=== PATIENT | male | born 1955 ===

== ENCOUNTER 2020-08-25 10:15 | Inpatient (IN) | payer OTHER, SELFPAY ==
[2020-08-25] MEDS ORDERED: SODIUM CHLORIDE 0.9% 500 ML 500 ML IV ONE (10:36)
--- NOTE | 2020-08-25 10:43 | Emergency Department Report ---
ED Shortness of Breath HPI - General Chief Complaint: Dyspnea/Respdistress Stated Complaint: QI Source: patient, EMS Mode of arrival: Stretcher Limitations: No Limitations - History of Present Illness Initial Comments: Patient is a 64-year-old male who is presenting with shortness of breath. Patient states he has had increased work of breathing for the last 5 days. Denies productive cough. States he has been no fever body aches. Patient is called paramedics because of shortness of breath today. Paramedics state the patient was wheezing on their arrival and his O2 sats were 90% on room air. He received neb treatment was started on BiPAP given 2 g of magnesium prior to his arrival. Patient is denying any nausea vomiting diarrhea at this time. - Related Data Allergies Allergy/AdvReac Type Severity Reaction Status Date / Time No Known Allergies Allergy Unverified 08/25/20 10:28 ED Review of Systems ROS: Stated complaint: QI Other details as noted in HPI Comment: All other systems reviewed and negative ED Past Medical Hx - Past Medical History Previous Medical History?: Yes Hx Hypertension: Yes Hx Asthma: Yes Additional medical history: HLD - Surgical History Past Surgical History?: No - Social History Smoking Status: Never Smoker Substance Use Type: None ED Physical Exam - General Limitations: No Limitations General appearance: alert, in no apparent distress - Head Head exam: Present: atraumatic, normocephalic - Eye Eye exam: Present: normal appearance - ENT ENT exam: Present: mucous membranes moist - Neck Neck exam: Present: normal inspection - Respiratory Respiratory exam: Present: respiratory distress (Tachypnea), rhonchi. Absent: normal lung sounds bilaterally, wheezes, rales, stridor - Cardiovascular Cardiovascular Exam: Present: regular rate, normal rhythm, normal heart sounds. Absent: systolic murmur, diastolic murmur, rubs, gallop - GI/Abdominal GI/Abdominal exam: Present: soft, normal bowel sounds. Absent: distended, tenderness, guarding, rebound - Rectal Rectal exam: Present: deferred - Extremities Exam Extremities exam: Present: normal inspection - Back Exam Back exam: Present: normal inspection - Neurological Exam Neurological exam: Present: alert, oriented X3 - Psychiatric Psychiatric exam: Present: normal affect, normal mood - Skin Skin exam: Present: warm, dry, intact, normal color. Absent: rash ED Course Vital Signs 08/25/20 10:31 Temperature 97.6 F Pulse Rate 101 H Respiratory 22 Rate Blood Pressure 138/109 [Left] O2 Sat by Pulse 100 Oximetry ED Medical Decision Making - Lab Data Result diagrams: 08/25/20 10:51 08/25/20 10:51 Lab Results 08/25/20 08/25/20 08/25/20 Range/Units 10:51 10:51 10:51 WBC 9.3 (4.5-11.0) K/mm3 RBC 4.01 (3.65-5.03) M/mm3 Hgb 11.3 L (11.8-15.2) gm/dl Hct 34.2 L (35.5-45.6) % MCV 85 (84-94) fl MCH 28 (28-32) pg MCHC 33 (32-34) % RDW 16.8 H (13.2-15.2) % Plt Count 270 (140-440) K/mm3 Lymph % (Auto) 10.9 L (13.4-35.0) % [place] % (Auto) 6.9 (0.0-7.3) % Eos % (Auto) 1.9 (0.0-4.3) % Baso % (Auto) 0.6 (0.0-1.8) % Lymph # (Auto) 1.0 L (1.2-5.4) K/mm3 [place] # (Auto) 0.6 (0.0-0.8) K/mm3 Eos # (Auto) 0.2 (0.0-0.4) K/mm3 Baso # (Auto) 0.1 (0.0-0.1) K/mm3 Seg Neutrophils % 79.7 H (40.0-70.0) % Seg Neutrophils # 7.4 (1.8-7.7) K/mm3 D-Dimer 845.09 H (0-234) ng/mlDDU Sodium 135 L (137-145) mmol/L Potassium 4.4 (3.6-5.0) mmol/L Chloride 99.8 (98-107) mmol/L Carbon Dioxide 29 (22-30) mmol/L Anion Gap 11 mmol/L BUN 23 H (9-20) mg/dL Creatinine 0.6 L (0.8-1.3) mg/dL Estimated GFR > 60 ml/min BUN/Creatinine Ratio 38 % Glucose 126 H (75-100) mg/dL Lactic Acid (0.7-2.0) mmol/L Calcium 8.5 (8.4-10.2) mg/dL Ferritin (30.0-300.0) ng/mL Total Bilirubin 0.40 (0.1-1.2) mg/dL AST 41 H (5-40) units/L ALT 30 (7-56) units/L Alkaline Phosphatase 124 (35-129) units/L Lactate Dehydrogenase 238 H (91-180) units/L C-Reactive Protein 3.40 H (0.00-1.30) mg/dL Total Protein 6.9 (6.3-8.2) g/dL Albumin 3.1 L (3.9-5) g/dL Albumin/Globulin Ratio 0.8 % 08/25/20 08/25/20 Range/Units 10:51 10:51 WBC (4.5-11.0) K/mm3 RBC (3.65-5.03) M/mm3 Hgb (11.8-15.2) gm/dl Hct (35.5-45.6) % MCV (84-94) fl MCH (28-32) pg MCHC (32-34) % RDW (13.2-15.2) % Plt Count (140-440) K/mm3 Lymph % (Auto) (13.4-35.0) % [place] % (Auto) (0.0-7.3) % Eos % (Auto) (0.0-4.3) % Baso % (Auto) (0.0-1.8) % Lymph # (Auto) (1.2-5.4) K/mm3 [place] # (Auto) (0.0-0.8) K/mm3 Eos # (Auto) (0.0-0.4) K/mm3 Baso # (Auto) (0.0-0.1) K/mm3 Seg Neutrophils % (40.0-70.0) % Seg Neutrophils # (1.8-7.7) K/mm3 D-Dimer (0-234) ng/mlDDU Sodium (137-145) mmol/L Potassium (3.6-5.0) mmol/L Chloride (98-107) mmol/L Carbon Dioxide (22-30) mmol/L Anion Gap mmol/L BUN (9-20) mg/dL Creatinine (0.8-1.3) mg/dL Estimated GFR ml/min BUN/Creatinine Ratio % Glucose (75-100) mg/dL Lactic Acid 0.80 (0.7-2.0) mmol/L Calcium (8.4-10.2) mg/dL Ferritin 101.3 (30.0-300.0) ng/mL Total Bilirubin (0.1-1.2) mg/dL AST (5-40) units/L ALT (7-56) units/L Alkaline Phosphatase (35-129) units/L Lactate Dehydrogenase (91-180) units/L C-Reactive Protein (0.00-1.30) mg/dL Total Protein (6.3-8.2) g/dL Albumin (3.9-5) g/dL Albumin/Globulin Ratio % - Radiology Data [facility] [address] [place] [address] XRay Report Signed Patient: AMISH PACHECO MR#: [id number] 1 : 1955 Acct:[id number] Age/Sex: 64 / M ADM Date: 08/25/20 Loc: ED Attending Dr: Ordering Physician: REBECA WILSON MD Date of Service: 08/25/20 Procedure(s): XR chest 1V ap Accession Number(s): [id number] cc: REBECA WILSON MD Fluoro Time In Minutes: CHEST 1 VIEW INDICATION / CLINICAL INFORMATION: resp distress. COMPARISON: None available. FINDINGS: SUPPORT DEVICES: None. HEART / MEDIASTINUM: Unremarkable allowing for AP technique. LUNGS / PLEURA: There is suggestion of pulmonary vascular congestion and small bilateral layering effusions with adjacent subsegmental atelectasis. No pneumothorax. ADDITIONAL FINDINGS: No significant additional findings. IMPRESSION: 1. Pulmonary vascular congestion and small bilateral layering effusions with bibasilar subsegmental atelectasis. Signer Name: Luz Maria Camara MD Signed: 08/25/2020 11:32 AM Workstation Name: [id number] - Medical Decision Making Patient arrived on BiPAP however he is much improved after neb treatment. Patient is on a 50% Ventimask. Patient be admitted for further management of his large pneumonia. COVID-19 testing will be done as well. Critical Care Time: Yes (30) Critical care attestation.: If time is entered above; I have spent that time in minutes in the direct care of this critically ill patient, excluding procedure time. ED Disposition Clinical Impression: Pneumonia, Hypoxia, Suspected COVID-19 virus infection Disposition: DC-01 TO HOME OR SELFCARE Is pt being admited?: Yes Does the pt Need Aspirin: No Condition: Stable Instructions: Bacterial Pneumonia (ED) Time of Disposition: 12:19
[2020-08-25 11:24] LABS: Basophils # (Auto) 0.1 K/mm3 (0.0-0.1); Basophils % (Auto) 0.6 % (0.0-1.8); Eosinophils # (Auto) 0.2 K/mm3 (0.0-0.4); Eosinophils % (Auto) 1.9 % (0.0-4.3); Hematocrit 34.2 % (35.5-45.6); Hemoglobin 11.3 gm/dl (11.8-15.2); Lymphocytes % (Auto) 10.9 % (13.4-35.0); Mean Corpuscular HGB Conc 33 % (32-34); Mean Corpuscular Volume 85 fl (84-94); Monocytes # (Auto) 0.6 K/mm3 (0.0-0.8); Monocytes % (Auto) 6.9 % (0.0-7.3); Platelet Count 270 K/mm3 (140-440); Red Blood Count 4.01 M/mm3 (3.65-5.03); Red Cell Distribution Width 16.8 % (13.2-15.2)
[2020-08-25 11:36] LABS: Alanine Aminotransferase 30 units/L (7-56); Albumin 3.1 g/dL (3.9-5); Blood Urea Nitrogen 23 mg/dL (9-20); Calcium 8.5 mg/dL (8.4-10.2); Hemolysis Index 3
[2020-08-25 11:37] LABS: BUN/Creatinine Ratio 38
--- NOTE | 2020-08-25 11:37 | XRay Report ---
CHEST 1 VIEW INDICATION / CLINICAL INFORMATION: resp distress. COMPARISON: None available. FINDINGS: SUPPORT DEVICES: None. HEART / MEDIASTINUM: Unremarkable allowing for AP technique. LUNGS / PLEURA: There is suggestion of pulmonary vascular congestion and small bilateral layering eff usions with adjacent subsegmental atelectasis. No pneumothorax. ADDITIONAL FINDINGS: No significant additional findings. IMPRESSION: 1. Pulmonary vascular congestion and small bilateral layering effusions with bibasilar subsegmental a telectasis. Signer Name: Luz Maria Camara MD Signed: 08/25/2020 11:32 AM Workstation Name: [id number]
[2020-08-25] MEDS: cefTRIAXone/NS 2 GM/100 ML 2 GM/100 ML BAG IV SCH (11:43)
[2020-08-25] MEDS ORDERED: AZITHROMYCIN 500 MG in SODIUM CHLORIDE 0.9% 250ML 250 ML IV ONE (11:53)
[2020-08-25] MEDS ORDERED: HYDROmorphone 1 MG/1 ML INJ IV ONE (14:00)
[2020-08-25] MEDS ORDERED: HYDROmorphone 1 MG/1 ML INJ ONE (14:02)
[2020-08-25] MEDS ORDERED: PNEUMOCOCCAL 23 Valent 0.5 ML VIAL IM ONE (14:29)
[2020-08-25] MEDS ORDERED: FLU VACC QUAD 2020-2021 (6 months +)/PF 60 0.5 ML SYRINGE IM ONE (14:29)
[2020-08-25 14:45] LABS: Bilirubin,Urine NEG (Negative); Blood,Urine NEG (Negative); Color,Urine Yellow (Yellow); Mucus,Urine FEW /HPF; Urobilinogen,Urine < 2.0 mg/dL (<2.0)
--- NOTE | 2020-08-25 14:54 | History and Physical Report ---
History of Present Illness Date of examination: 08/25/20 Date of admission: 08/25/20 13:14 Chief complaint: SOB History of present illness: Patient is a 64-year-old male who is presenting with shortness of breath. Patient states he has had increased work of breathing for the last 5 days. Denies productive cough. States he has been no fever body aches. Patient is called paramedics because of shortness of breath today. Paramedics state the patient was wheezing on their arrival and his O2 sats were 90% on room air. He received neb treatment was started on BiPAP given 2 g of magnesium prior to his arrival. Patient is denying any nausea vomiting diarrhea at this time. Past Medical Hx - Past Medical History Previous Medical History?: Yes Hx Hypertension: Yes Hx Asthma: Yes Additional medical history: HLD - Surgical History Past Surgical History?: No -Family History - Social History Smoking Status: Never Smoker Substance Use Type: None Review of System: Constitutional: no fever, no chills, no weight loss Ears, eyes, nose, mouth and throat: no nasal congestion, no nasal discharge, no sinus pressure, no vision change, no red eye. Neck: No neck pain or rigidity. Cardiovascular: No chest pain, no orthopnea, no palpitations, no leg swelling Respiratory: + shortness of breath, no cough, no congestion, + wheezing Gastrointestinal: no abdominal pain, no nausea, no vomiting Genitourinary : no dysuria, no hematuria Musculoskeletal: no joint swelling or muscle ache Integumentary: no rash, no pruritis Neurological: no parathesias, no numbness, no tingling Endocrine: no cold or heat intolerance, no polyuria or polydipsia Hematologic/Lymphatic: no easy bruising, no easy bleeding, no gland swelling Allergic/Immunologic: no urticaria, no angioedema. Medications and Allergies Allergies Allergy/AdvReac Type Severity Reaction Status Date / Time No Known Allergies Allergy Unverified 08/25/20 10:28 Home Medications Medication Instructions Recorded Confirmed Last Taken Type No Known Home Medications [No 08/25/20 08/25/20 Unknown History Reported Home Medications] Active Meds: Active Medications Furosemide (Lasix) 40 mg IV 0600,1800 SARITA Ceftriaxone Sodium (Rocephin/Ns 2 Gm/100 Ml) 2 gm in 100 mls @ 200 mls/hr IV Q24HR SARITA; Protocol Last Admin: 08/25/20 11:43 Dose: 200 mls/hr Documented by: Azithromycin 500 mg/ Sodium (Chloride) 250 mls @ 250 mls/hr IV Q24HR SARITA; Protocol Exam - Physical Exam Narrative exam: GENERAL: well-developed and well-nourished elderly male lying on bed appeared to be in mild discomfort. HEENT: Normocephalic. Atraumatic. No conjunctival congestion or icterus. Patient has moist mucous membranes. NECK: Supple. Trachea midline. CHEST/LUNGS: coarse BS auscultated bilaterally, breathing labored. + wheezes HEART/CARDIOVASCULAR: Regular in rate and rhythm. S1 and S2 positive. ABDOMEN: Abdomen is soft, nontender. Patient has normal bowel sounds. SKIN: There is no rash. Warm and dry. NEURO: No focal motor deficit. Follows command. MUSCULOSKELETAL: No joint effusion or tenderness. EXTRIMITY: No edema, no cyanosis or clubbing. PSYCH: Cooperative. - Constitutional Vitals: Temp Pulse Resp BP Pulse Ox 97.6 F 103 H 15 129/105 98 08/25/20 10:31 08/25/20 13:46 08/25/20 13:46 08/25/20 13:46 08/25/20 14:19 Results - Labs CBC & Chem 7: 08/26/20 04:26 08/26/20 04:26 Labs: Abnormal lab results 08/25/20 08/25/20 08/25/20 Range/Units 10:51 10:51 10:51 Hgb 11.3 L (11.8-15.2) gm/dl Hct 34.2 L (35.5-45.6) % RDW 16.8 H (13.2-15.2) % Lymph % (Auto) 10.9 L (13.4-35.0) % Lymph # (Auto) 1.0 L (1.2-5.4) K/mm3 Seg Neutrophils % 79.7 H (40.0-70.0) % D-Dimer 845.09 H (0-234) ng/mlDDU Sodium 135 L (137-145) mmol/L BUN 23 H (9-20) mg/dL Creatinine 0.6 L (0.8-1.3) mg/dL Glucose 126 H (75-100) mg/dL AST 41 H (5-40) units/L Lactate Dehydrogenase 238 H (91-180) units/L C-Reactive Protein 3.40 H (0.00-1.30) mg/dL NT-Pro-B Natriuret Pep (0-900) pg/mL Albumin 3.1 L (3.9-5) g/dL 08/25/20 Range/Units 12:01 Hgb (11.8-15.2) gm/dl Hct (35.5-45.6) % RDW (13.2-15.2) % Lymph % (Auto) (13.4-35.0) % Lymph # (Auto) (1.2-5.4) K/mm3 Seg Neutrophils % (40.0-70.0) % D-Dimer (0-234) ng/mlDDU Sodium (137-145) mmol/L BUN (9-20) mg/dL Creatinine (0.8-1.3) mg/dL Glucose (75-100) mg/dL AST (5-40) units/L Lactate Dehydrogenase (91-180) units/L C-Reactive Protein (0.00-1.30) mg/dL NT-Pro-B Natriuret Pep 06856 H (0-900) pg/mL Albumin (3.9-5) g/dL Assessment and Plan Possible new onset CHF with systolic dysfunction -Patient presented with shortness of breath, elevated BNP, chest x-ray suggestive of pulmonary edema and venous congestion -Monitor ins and O's, daily weight, daily weight -Placed on Lasix 40 mg every 12 hours -Obtain 2D echo, cardiology consult CXR: 1. Pulmonary vascular congestion and small bilateral layering effusions with bibasilar subsegmental atelectasis. Possible PUI, ordered for COVID-19 Acute hypoxic respiratory failure -Patient arrived on BiPAP however he is much improved after neb treatment. Patient is on a 50% Ventimask. -Possibly from underlying pneumonia versus CHF exacerbation -We will continue empiric antibiotics for now, will rule out Covid, will obtain 2D echo for possible CHF and placed on IV diuretics Elevated D-dimer, will order for CTA chest Mild hyponatremia, monitor BMP DVT Px, lovenox
[2020-08-25] MEDS ORDERED: ACETAMINOPHEN 325 MG TAB PO PRN (15:00)
[2020-08-25] MEDS ORDERED: HYDROcodone/ACETAMINOPHEN 5-325 MG TAB PO PRN (15:00)
[2020-08-25] MEDS ORDERED: ONDANSETRON 4 MG/2 ML INJ IV PRN (15:00)
[2020-08-25] MEDS: FUROSEMIDE 40 MG/4 ML INJ IV SCH (17:04)
[2020-08-25] MEDS: IPRATROPIUM/ALBUTEROL SULFATE 3 ML AMPUL.NEB IH SCH ×3 (17:56→19:40)
[2020-08-25] MEDS: ENOXAPARIN 40 MG/0.4 ML INJ SUB-Q SCH (22:00)
[2020-08-26] MEDS: IPRATROPIUM/ALBUTEROL SULFATE 3 ML AMPUL.NEB IH SCH ×4 (01:45→20:50)
[2020-08-26] MEDS: FUROSEMIDE 40 MG/4 ML INJ IV SCH ×2 (05:13→17:50)
[2020-08-26 05:22] LABS: Basophils % (Auto) 0.2 % (0.0-1.8); Hematocrit 32.3 % (35.5-45.6); Hemoglobin 10.8 gm/dl (11.8-15.2); Lymphocytes # (Auto) 0.8 K/mm3 (1.2-5.4); Lymphocytes % (Auto) 9.2 % (13.4-35.0); Mean Corpuscular HGB Conc 34 % (32-34); Mean Corpuscular Volume 84 fl (84-94); Monocytes # (Auto) 0.6 K/mm3 (0.0-0.8); Monocytes % (Auto) 7.5 % (0.0-7.3); Platelet Count 279 K/mm3 (140-440); Red Blood Count 3.84 M/mm3 (3.65-5.03); Red Cell Distribution Width 16.4 % (13.2-15.2)
[2020-08-26 05:38] LABS: Blood Urea Nitrogen 26 mg/dL (9-20); Calcium 8.1 mg/dL (8.4-10.2); Hemolysis Index 3
[2020-08-26 06:04] LABS: BUN/Creatinine Ratio 37
[2020-08-26] MEDS: cefTRIAXone/NS 2 GM/100 ML 2 GM/100 ML BAG IV SCH (09:55)
[2020-08-26] MEDS: AZITHROMYCIN 500 MG in SODIUM CHLORIDE 0.9% 250ML 250 ML IV SCH (09:55)
--- NOTE | 2020-08-26 11:22 | Consultation ---
History of Present Illness Consult date: 08/26/20 Consult reason: shortness of breath History of present illness: 64-year-old male presented with shortness of breath and hypoxia. His initial oxygen saturation was noted to be low. There was initially some concern regarding CHF as his pBNP was noted to be high and chest Xray is suggestive of pulmonary vascular congestion. Patient is now noted to be COVID positive. ECG reveals SR, mildly prolonged QTc Past History Past Medical History: hypertension, hyperlipidemia Social history: denies: smoking Family history: hypertension Medications and Allergies Allergies Allergy/AdvReac Type Severity Reaction Status Date / Time No Known Allergies Allergy Unverified 08/25/20 10:28 Home Medications Medication Instructions Recorded Confirmed Last Taken Type No Known Home Medications [No 08/25/20 08/25/20 Unknown History Reported Home Medications] Active Meds: Active Medications Acetaminophen (Tylenol) 650 mg PO Q4H PRN PRN Reason: Pain MILD(1-3)/Fever >100.5/PLASENCIA Hydrocodone Bitart/Acetaminophen ([place] 5/325) 2 each PO Q6H PRN PRN Reason: Pain, Moderate (4-6) Albuterol/Ipratropium (Duoneb *Not For Prn Use*) 1 ampul IH Q6HRT SARITA Last Admin: 08/26/20 06:59 Dose: 1 ampul Documented by: Enoxaparin Sodium (Enoxaparin) 40 mg SUB-Q QDAY@2200 SARITA; Protocol Last Admin: 08/25/20 22:00 Dose: 40 mg Documented by: Furosemide (Lasix) 40 mg IV 0600,1800 SARITA Last Admin: 08/26/20 05:13 Dose: 40 mg Documented by: Ceftriaxone Sodium (Rocephin/Ns 2 Gm/100 Ml) 2 gm in 100 mls @ 200 mls/hr IV Q24HR SARITA; Protocol Last Admin: 08/26/20 09:55 Dose: 200 mls/hr Documented by: Azithromycin 500 mg/ Sodium (Chloride) 250 mls @ 250 mls/hr IV Q24HR SARITA; Protocol Stop: 08/29/20 10:59 Last Admin: 08/26/20 09:55 Dose: 250 mls/hr Documented by: Ondansetron HCl (Zofran) 4 mg IV Q8H PRN PRN Reason: N/V unrelieved by Reglan Review of Systems All systems: negative (per hpi) Physical Examination Vital Signs Pulse Ox 99 08/25/20 10:19 Narrative exam: I did not personally examine patient in effort to prevent infection transmission as he is COVID positive. Results 08/26/20 04:26 08/26/20 04:26 Cardiac Enzymes 08/25/20 Range/Units 10:51 AST 41 H (5-40) units/L Lactate Dehydrogenase 238 H (91-180) units/L CBC 08/25/20 08/26/20 Range/Units 10:51 04:26 WBC 9.3 8.2 (4.5-11.0) K/mm3 RBC 4.01 3.84 (3.65-5.03) M/mm3 Hgb 11.3 L 10.8 L (11.8-15.2) gm/dl Hct 34.2 L 32.3 L (35.5-45.6) % Plt Count 270 279 (140-440) K/mm3 Lymph # (Auto) 1.0 L 0.8 L (1.2-5.4) K/mm3 [place] # (Auto) 0.6 0.6 (0.0-0.8) K/mm3 Eos # (Auto) 0.2 0.0 (0.0-0.4) K/mm3 Baso # (Auto) 0.1 0.0 (0.0-0.1) K/mm3 Comprehensive Metabolic Panel 08/25/20 08/26/20 Range/Units 10:51 04:26 Sodium 135 L 140 (137-145) mmol/L Potassium 4.4 4.5 (3.6-5.0) mmol/L Chloride 99.8 103.7 (98-107) mmol/L Carbon Dioxide 29 27 (22-30) mmol/L BUN 23 H 26 H (9-20) mg/dL Creatinine 0.6 L 0.7 L (0.8-1.3) mg/dL Glucose 126 H 118 H (75-100) mg/dL Calcium 8.5 8.1 L (8.4-10.2) mg/dL AST 41 H (5-40) units/L ALT 30 (7-56) units/L Alkaline Phosphatase 124 (35-129) units/L Total Protein 6.9 (6.3-8.2) g/dL Albumin 3.1 L (3.9-5) g/dL Assessment and Plan COVID 19 infection Hypoxia Recommend: Treatment for COVID 19 Eventual echocardiogram once adequately treated for Covid 19
--- NOTE | 2020-08-26 14:18 | Progress Note ---
Assessment and Plan - Patient Problems (1) Acute hypoxemic respiratory failure Current Visit: Yes Status: Acute Plan to address problem: Supplemental oxygen, pulse oximetry, nebulizer therapy, pulmonary toilet, ambulate 3 times daily and as needed, supportive care. (2) Coronavirus infection Current Visit: Yes Status: Acute Plan to address problem: Coronavirus protocol: Contact precautions, isolation precautions, supplemental oxygen, pulse oximetry, IV antibiotic therapy, IV steroid therapy, prone positioning while in bed, pulmonary toilet, out of bed to chair 3 times daily and as needed (3) CHF (congestive heart failure) Current Visit: Yes Status: Acute Qualifiers: Heart failure type: systolic Plan to address problem: Strict I's/O, monitor urine output every shift, daily weight, afterload reduction, monitor fluid balance, echocardiogram ordered and is pending at time of my evaluation, cardiology team consulted. (4) DVT prophylaxis Current Visit: Yes Status: Acute Plan to address problem: SCD to bilateral lower extremities while in bed, prophylactic anticoagulation (5) Advance care planning Current Visit: Yes Status: Acute Plan to address problem: Disease education conducted, patient is full code, prognosis discussed, care plan discussed, patient knowledges understanding and agreement with care plan, +30 minutes. History Interval history: 64-year-old male hospital day 2 with coronavirus infection, acute hypoxemic respiratory failure, CHF decompensation. Patient seen and evaluated in his room. Patient resting comfortably in his room. Patient denies pain. Patient knowledges continued shortness of breath with exertion. Echocardiogram is pending. No reported nursing events. Hospitalist Physical - Constitutional Vitals: Temp Pulse Resp BP Pulse Ox 97.5 F L 88 16 126/90 100 08/26/20 05:34 08/26/20 13:00 08/26/20 13:00 08/26/20 05:34 08/26/20 10:00 General appearance: Present: mild distress - EENT Eyes: Present: PERRL ENT: hearing intact - Neck Neck: Present: supple - Respiratory Respiratory effort: labored Respiratory: bilateral: diminished, rhonchi - Cardiovascular Rhythm: regular Heart Sounds: Present: S1 & S2 - Extremities Extremities: no ischemia Peripheral Pulses: within normal limits - Abdominal General gastrointestinal: soft, non-tender, non-distended - Integumentary Integumentary: Present: clear, dry - Psychiatric Psychiatric: appropriate mood/affect, cooperative - Neurologic Neurologic: CNII-XII intact Results - Labs CBC & Chem 7: 08/26/20 04:26 08/26/20 04:26 Labs: Laboratory Last Values WBC 8.2 K/mm3 (4.5-11.0) 08/26/20 04:26 RBC 3.84 M/mm3 (3.65-5.03) 08/26/20 04:26 Hgb 10.8 gm/dl (11.8-15.2) L 08/26/20 04:26 Hct 32.3 % (35.5-45.6) L 08/26/20 04:26 MCV 84 fl (84-94) 08/26/20 04: MCH 28 pg (28-32) 08/26/20 04: MCHC 34 % (32-34) 08/26/20 04: RDW 16.4 % (13.2-15.2) H 08/26/20 04:26 Plt Count 279 K/mm3 (140-440) 08/26/20 04:26 Lymph % (Auto) 9.2 % (13.4-35.0) L 08/26/20 04:26 [place] % (Auto) 7.5 % (0.0-7.3) H 08/26/20 04:26 Eos % (Auto) 0.0 % (0.0-4.3) 08/26/20 04:26 Baso % (Auto) 0.2 % (0.0-1.8) 08/26/20 04: Lymph # (Auto) 0.8 K/mm3 (1.2-5.4) L 08/26/20 04:26 [place] # (Auto) 0.6 K/mm3 (0.0-0.8) 08/26/20 04:26 Eos # (Auto) 0.0 K/mm3 (0.0-0.4) 08/26/20 04: Baso # (Auto) 0.0 K/mm3 (0.0-0.1) 08/26/20 04:26 Seg Neutrophils % 83.1 % (40.0-70.0) H 08/26/20 04: Seg Neutrophils # 6.8 K/mm3 (1.8-7.7) 08/26/20 04:26 D-Dimer 845.09 ng/mlDDU (0-234) H 08/25/20 10:51 Sodium 140 mmol/L (137-145) 08/26/20 04:26 Potassium 4.5 mmol/L (3.6-5.0) 08/26/20 04:26 Chloride 103.7 mmol/L (98-107) 08/26/20 04:26 Carbon Dioxide 27 mmol/L (22-30) 08/26/20 04:26 Anion Gap 14 mmol/L 08/26/20 04:26 BUN 26 mg/dL (9-20) H 08/26/20 04:26 Creatinine 0.7 mg/dL (0.8-1.3) L 08/26/20 04:26 Estimated GFR > 60 ml/min 08/26/20 04:26 BUN/Creatinine Ratio 37 % 08/26/20 04:26 Glucose 118 mg/dL (75-100) H 08/26/20 04:26 Lactic Acid 1.30 mmol/L (0.7-2.0) 08/25/20 17:21 Calcium 8.1 mg/dL (8.4-10.2) L 08/26/20 04:26 Ferritin 101.3 ng/mL (30.0-300.0) 08/25/20 10:51 Total Bilirubin 0.40 mg/dL (0.1-1.2) 08/25/20 10:51 AST 41 units/L (5-40) H 08/25/20 10:51 ALT 30 units/L (7-56) 08/25/20 10:51 Alkaline Phosphatase 124 units/L (35-129) 08/25/20 10:51 Lactate Dehydrogenase 238 units/L (91-180) H 08/25/20 10:51 C-Reactive Protein 3.40 mg/dL (0.00-1.30) H 08/25/20 10:51 NT-Pro-B Natriuret Pep 29270 pg/mL (0-900) H 08/25/20 12:01 Total Protein 6.9 g/dL (6.3-8.2) 08/25/20 10:51 Albumin 3.1 g/dL (3.9-5) L 08/25/20 10:51 Albumin/Globulin Ratio 0.8 % 08/25/20 10:51 Procalcitonin < 0.05 ng/mL (<0.15) 08/25/20 10:51 Urine Color Yellow (Yellow) 08/25/20 14:13 Urine Turbidity Clear (Clear) 08/25/20 14:13 Urine pH 5.0 (5.0-7.0) 08/25/20 14:13 Ur Specific [place] 1.027 (1.003-1.030) 08/25/20 14:13 Urine Protein 100 mg/dl mg/dL (Negative) 08/25/20 14:13 Urine Glucose (UA) Neg mg/dL (Negative) 08/25/20 14:13 Urine Ketones Neg mg/dL (Negative) 08/25/20 14:13 Urine Blood Neg (Negative) 08/25/20 14:13 Urine Nitrite Neg (Negative) 08/25/20 14:13 Urine Bilirubin Neg (Negative) 08/25/20 14:13 Urine Urobilinogen < 2.0 mg/dL (<2.0) 08/25/20 14:13 Ur Leukocyte Esterase Neg (Negative) 08/25/20 14:13 Urine WBC (Auto) 1.0 /HPF (0.0-6.0) 08/25/20 14:13 Urine RBC (Auto) 2.0 /HPF (0.0-6.0) 08/25/20 14:13 U Epithel Cells (Auto) 1.0 /HPF (0-13.0) 08/25/20 14:13 Urine Mucus Few /HPF 08/25/20 14:13 Coronavirus (PCR) Positive (Negative) A 08/26/20 Unknown Microbiology: Microbiology 08/25/20 Unknown Peripheral/Venous Blood Culture - Preliminary NO GROWTH AFTER 24 HOURS 08/25/20 Unknown Peripheral/Venous Blood Culture - Preliminary NO GROWTH AFTER 24 HOURS Collins/IV: Voiding Method Toilet Active Medications - Current Medications Current Medications: Generic Name Dose Route Start Last Admin Trade Name Freq PRN Reason Stop Dose Admin Acetaminophen 650 mg 08/25/20 15:00 Tylenol PO Q4H PRN Pain MILD(1-3)/Fever >100.5/PLASENCIA Hydrocodone Bitart/Acetaminophen 2 each 08/25/20 15:00 [place] 5/325 PO Q6H PRN Pain, Moderate (4-6) Albuterol/Ipratropium 1 ampul 08/25/20 15:00 08/26/20 13:47 Duoneb *Not For Prn Use* IH 1 ampul Q6HRT SARITA Administration Enoxaparin Sodium 40 mg 08/25/20 22:00 08/25/20 22:00 Enoxaparin SUB-Q 40 mg QDAY@2200 SARITA Administration Protocol Furosemide 40 mg 08/25/20 18:00 08/26/20 05:13 Lasix IV 40 mg 0600,1800 SARITA Administration Ceftriaxone Sodium 2 gm in 100 mls @ 200 mls/hr 08/25/20 10:36 08/26/20 09:55 Rocephin/Ns 2 Gm/100 Ml IV 200 mls/hr Q24HR SARITA Administration Protocol Azithromycin 500 mg/ Sodium 250 mls @ 250 mls/hr 08/26/20 10:00 08/26/20 09:55 Chloride IV 08/29/20 10:59 250 mls/hr Q24HR SARITA Administration Protocol Methylprednisolone Sodium Succinate 40 mg 08/26/20 14:00 Solu-Medrol IV Q8HR SARITA Ondansetron HCl 4 mg 08/25/20 15:00 Zofran IV Q8H PRN N/V unrelieved by Cynthia
[2020-08-26] MEDS: methylPREDNISolone Sod Succinate 40 MG/1 ML INJ IV SCH (14:41)
--- NOTE | 2020-08-26 17:55 | Cat Scan Report ---
CTA CHEST WITH IV CONTRAST INDICATION / CLINICAL INFORMATION: possible PE. TECHNIQUE: Axial CT images were obtained through the chest after injection of 100 mL Omnipaque 350 IV contrast. 3 plane MIP and/or 3D reconstructions were produced. All CT scans at this location are performed usin g CT dose reduction for ALARA by means of automated exposure control. COMPARISON: Chest radiograph one day prior FINDINGS: PULMONARY ARTERIES: No pulmonary emboli. THORACIC AORTA: No significant abnormality. HEART: Cardiomegaly. CORONARY ARTERIES: Small amount of coronary artery calcification. PLEURA: Small to moderate bilateral pleural effusions with adjacent subsegmental atelectasis. No pneu mothorax. LYMPH NODES: No significant adenopathy. LUNGS: Patchy airspace opacities predominantly involving both upper lobes. ADDITIONAL FINDINGS: None. UPPER ABDOMEN: No acute findings. SKELETAL STRUCTURES: No significant osseous abnormality. IMPRESSION: 1. No CT evidence for pulmonary embolism. 2. Cardiomegaly with small to moderate bilateral pleural effusions and bilateral airspace opacities w hich most likely reflects pulmonary edema. Signer Name: Luz Maria Camara MD Signed: 08/26/2020 5:50 PM Workstation Name: [id number]
[2020-08-27] MEDS: ENOXAPARIN 40 MG/0.4 ML INJ SUB-Q SCH ×2 (00:50→22:12)
[2020-08-27] MEDS: methylPREDNISolone Sod Succinate 40 MG/1 ML INJ IV SCH ×4 (00:50→22:12)
[2020-08-27] MEDS: IPRATROPIUM/ALBUTEROL SULFATE 3 ML AMPUL.NEB IH SCH ×4 (01:13→20:22)
[2020-08-27] MEDS: FUROSEMIDE 40 MG/4 ML INJ IV SCH ×2 (05:40→17:23)
--- NOTE | 2020-08-27 10:03 | Progress Note ---
Assessment and Plan - Patient Problems (1) Coronavirus infection Current Visit: Yes Status: Acute Plan to address problem: CTA chest: no evidence of PE. No further cardiac recommendations. Will follow intermittently. Subjective Date of service: 08/27/20 Interval history: Stable sinus rhythm on telemetry. No cardiac reports. Objective Vital Signs Temp Pulse Pulse Resp Resp BP Pulse Ox 08/27/20 09:35 93 08/27/20 08:25 92 H 18 08/27/20 05:06 98.3 F 88 18 120/82 96 08/27/20 01:14 84 16 08/26/20 22:36 97.5 F L 91 H 18 124/83 99 08/26/20 22:00 18 98 08/26/20 20:53 86 16 100 08/26/20 16:22 97.7 F 91 H 20 123/82 100 08/26/20 13:00 88 16 08/26/20 12:25 98.0 F 94 H 20 108/78 97 08/26/20 10:00 100 - Physical Examination Narrative exam: Deferred due to isolation protocol. Cardiac: Positive: Reg Rate and Rhythm
[2020-08-27] MEDS: cefTRIAXone/NS 2 GM/100 ML 2 GM/100 ML BAG IV SCH (10:55)
[2020-08-27] MEDS: AZITHROMYCIN 500 MG in SODIUM CHLORIDE 0.9% 250ML 250 ML IV SCH (11:34)
--- NOTE | 2020-08-27 19:51 | Progress Note ---
Assessment and Plan - Patient Problems (1) Acute hypoxemic respiratory failure Current Visit: Yes Status: Acute Plan to address problem: Supplemental oxygen, pulse oximetry, nebulizer therapy, pulmonary toilet, ambulate 3 times daily and as needed, supportive care. (2) Coronavirus infection Current Visit: Yes Status: Acute Plan to address problem: Coronavirus protocol: Contact precautions, isolation precautions, supplemental oxygen, pulse oximetry, IV antibiotic therapy, IV steroid therapy, prone positioning while in bed, pulmonary toilet, out of bed to chair 3 times daily and as needed (3) CHF (congestive heart failure) Current Visit: Yes Status: Acute Qualifiers: Heart failure type: systolic Plan to address problem: Strict I's/O, monitor urine output every shift, daily weight, afterload reduction, monitor fluid balance, echocardiogram reviewed, cardiology team consulted. (4) DVT prophylaxis Current Visit: Yes Status: Acute Plan to address problem: SCD to bilateral lower extremities while in bed, prophylactic anticoagulation (5) Advance care planning Current Visit: Yes Status: Acute Plan to address problem: Disease education conducted, patient is full code, prognosis discussed, care plan discussed, patient knowledges understanding and agreement with care plan, +30 minutes. History Interval history: 64-year-old male hospital day 3 with Coronavirus Infection, Acute Hypoxemic Respiratory Failure, CHF Decompensation. Patient resting comfortably in his room with supplemental oxygen in place. Patient denies pain. Patient acknowledges continued shortness of breath. Echocardiogram is pending. No reported nursing events. Pt denies pain. Hospitalist Physical - Constitutional Vitals: Temp Pulse Resp BP Pulse Ox 97.9 F 86 19 127/81 96 08/27/20 10:51 08/27/20 17:05 08/27/20 17:05 08/27/20 10:51 08/27/20 10:51 General appearance: Present: mild distress - EENT Eyes: Present: PERRL, EOM intact - Neck Neck: Present: supple - Respiratory Respiratory: bilateral: diminished - Cardiovascular Rhythm: regular Heart Sounds: Present: S1 & S2 - Extremities Extremities: no ischemia Peripheral Pulses: within normal limits - Abdominal General gastrointestinal: soft, non-tender, non-distended - Integumentary Integumentary: Present: clear, dry - Psychiatric Psychiatric: appropriate mood/affect, cooperative - Neurologic Neurologic: CNII-XII intact Results - Labs CBC & Chem 7: 08/26/20 04:26 08/26/20 04:26 Labs: Laboratory Last Values WBC 8.2 K/mm3 (4.5-11.0) 08/26/20 04:26 RBC 3.84 M/mm3 (3.65-5.03) 08/26/20 04:26 Hgb 10.8 gm/dl (11.8-15.2) L 08/26/20 04:26 Hct 32.3 % (35.5-45.6) L 08/26/20 04:26 MCV 84 fl (84-94) 08/26/20 04:26 MCH 28 pg (28-32) 08/26/20 04: MCHC 34 % (32-34) 08/26/20 04: RDW 16.4 % (13.2-15.2) H 08/26/20 04:26 Plt Count 279 K/mm3 (140-440) 08/26/20 04:26 Lymph % (Auto) 9.2 % (13.4-35.0) L 08/26/20 04:26 [facility] % (Auto) 7.5 % (0.0-7.3) H 08/26/20 04:26 Eos % (Auto) 0.0 % (0.0-4.3) 08/26/20 04: Baso % (Auto) 0.2 % (0.0-1.8) 08/26/20 04:26 Lymph # (Auto) 0.8 K/mm3 (1.2-5.4) L 08/26/20 04:26 [facility] # (Auto) 0.6 K/mm3 (0.0-0.8) 08/26/20 04:26 Eos # (Auto) 0.0 K/mm3 (0.0-0.4) 08/26/20 04:26 Baso # (Auto) 0.0 K/mm3 (0.0-0.1) 08/26/20 04:26 Seg Neutrophils % 83.1 % (40.0-70.0) H 08/26/20 04:26 Seg Neutrophils # 6.8 K/mm3 (1.8-7.7) 08/26/20 04:26 D-Dimer 845.09 ng/mlDDU (0-234) H 08/25/20 10:51 Sodium 140 mmol/L (137-145) 08/26/20 04:26 Potassium 4.5 mmol/L (3.6-5.0) 08/26/20 04:26 Chloride 103.7 mmol/L (98-107) 08/26/20 04:26 Carbon Dioxide 27 mmol/L (22-30) 08/26/20 04:26 Anion Gap 14 mmol/L 08/26/20 04:26 BUN 26 mg/dL (9-20) H 08/26/20 04:26 Creatinine 0.7 mg/dL (0.8-1.3) L 08/26/20 04:26 Estimated GFR > 60 ml/min 08/26/20 04:26 BUN/Creatinine Ratio 37 % 08/26/20 04:26 Glucose 118 mg/dL (75-100) H 08/26/20 04:26 Lactic Acid 1.30 mmol/L (0.7-2.0) 08/25/20 17:21 Calcium 8.1 mg/dL (8.4-10.2) L 08/26/20 04:26 Ferritin 101.3 ng/mL (30.0-300.0) 08/25/20 10:51 Total Bilirubin 0.40 mg/dL (0.1-1.2) 08/25/20 10:51 AST 41 units/L (5-40) H 08/25/20 10:51 ALT 30 units/L (7-56) 08/25/20 10:51 Alkaline Phosphatase 124 units/L (35-129) 08/25/20 10:51 Lactate Dehydrogenase 238 units/L (91-180) H 08/25/20 10:51 C-Reactive Protein 3.40 mg/dL (0.00-1.30) H 08/25/20 10:51 NT-Pro-B Natriuret Pep 65979 pg/mL (0-900) H 08/25/20 12:01 Total Protein 6.9 g/dL (6.3-8.2) 08/25/20 10:51 Albumin 3.1 g/dL (3.9-5) L 08/25/20 10:51 Albumin/Globulin Ratio 0.8 % 08/25/20 10:51 Procalcitonin < 0.05 ng/mL (<0.15) 08/25/20 10:51 Urine Color Yellow (Yellow) 08/25/20 14:13 Urine Turbidity Clear (Clear) 08/25/20 14:13 Urine pH 5.0 (5.0-7.0) 08/25/20 14:13 Ur Specific [place] 1.027 (1.003-1.030) 08/25/20 14:13 Urine Protein 100 mg/dl mg/dL (Negative) 08/25/20 14:13 Urine Glucose (UA) Neg mg/dL (Negative) 08/25/20 14:13 Urine Ketones Neg mg/dL (Negative) 08/25/20 14:13 Urine Blood Neg (Negative) 08/25/20 14:13 Urine Nitrite Neg (Negative) 08/25/20 14:13 Urine Bilirubin Neg (Negative) 08/25/20 14:13 Urine Urobilinogen < 2.0 mg/dL (<2.0) 08/25/20 14:13 Ur Leukocyte Esterase Neg (Negative) 08/25/20 14:13 Urine WBC (Auto) 1.0 /HPF (0.0-6.0) 08/25/20 14:13 Urine RBC (Auto) 2.0 /HPF (0.0-6.0) 08/25/20 14:13 U Epithel Cells (Auto) 1.0 /HPF (0-13.0) 08/25/20 14:13 Urine Mucus Few /HPF 08/25/20 14:13 Coronavirus (PCR) Positive (Negative) A 08/26/20 Unknown Microbiology: Microbiology 08/25/20 Unknown Peripheral/Venous Blood Culture - Preliminary NO GROWTH AFTER 48 HOURS 08/25/20 Unknown Peripheral/Venous Blood Culture - Preliminary NO GROWTH AFTER 48 HOURS Collins/IV: Voiding Method Urinal Active Medications - Current Medications Current Medications: Generic Name Dose Route Start Last Admin Trade Name Freq PRN Reason Stop Dose Admin Acetaminophen 650 mg 08/25/20 15:00 Tylenol PO Q4H PRN Pain MILD(1-3)/Fever >100.5/PLASENCIA Hydrocodone Bitart/Acetaminophen 2 each 08/25/20 15:00 [place] 5/325 PO Q6H PRN Pain, Moderate (4-6) Albuterol/Ipratropium 1 ampul 08/25/20 15:00 08/27/20 17:04 Duoneb *Not For Prn Use* IH 1 ampul Q6HRT SARITA Administration Enoxaparin Sodium 40 mg 08/25/20 22:00 08/27/20 00:50 Enoxaparin SUB-Q 40 mg QDAY@2200 SARITA Administration Protocol Furosemide 40 mg 08/25/20 18:00 08/27/20 17:23 Lasix IV 40 mg 0600,1800 SARITA Administration Ceftriaxone Sodium 2 gm in 100 mls @ 200 mls/hr 08/25/20 10:36 08/27/20 10:55 Rocephin/Ns 2 Gm/100 Ml IV 200 mls/hr Q24HR SARITA Administration Protocol Azithromycin 500 mg/ Sodium 250 mls @ 250 mls/hr 08/26/20 10:00 08/27/20 11:34 Chloride IV 08/29/20 10:59 250 mls/hr Q24HR SARITA Administration Protocol Methylprednisolone Sodium Succinate 40 mg 08/26/20 14:00 08/27/20 13:27 Solu-Medrol IV 40 mg Q8HR SARITA Administration Ondansetron HCl 4 mg 08/25/20 15:00 Zofran IV Q8H PRN N/V unrelieved by Cynthia
[2020-08-28] MEDS: IPRATROPIUM/ALBUTEROL SULFATE 3 ML AMPUL.NEB IH SCH ×3 (02:41→13:57)
[2020-08-28] MEDS: methylPREDNISolone Sod Succinate 40 MG/1 ML INJ IV SCH ×3 (06:09→22:37)
[2020-08-28] MEDS: FUROSEMIDE 40 MG/4 ML INJ IV SCH ×2 (06:09→17:41)
--- NOTE | 2020-08-28 11:05 | Consultation ---
History of Present Illness - Reason for Consult Consult date: 08/28/20 COVID-19 Requesting physician: SETF CARDENAS - History of Present Illness 64 years old male without any past medical history, admitted on 08/25/2020 due to 5-day history of body ache, dry cough, worsening shortness of breath. Patient called EMS due to severe shortness of breath. On arrival he was wheezing and O2 sats were 90% on room air. On arrival, vital signs were stable. O2 sat 99%. Initial WBC normal. Ferritin normal. BNP 10,595. AST 41. CRP 3.4. D-dimer in the 800s. Blood culture 08/25/2020 no growth today. Chest CTA shows no pulmonary embolism but noted bilateral moderate pleural effusions and bilateral interstitial infiltrates. SARS-CoV-2 PCR positive. Review of Systems: reviewed ED and H&P notes. Limited due to PPE conservation strategy Past History Past Medical History: hypertension, hyperlipidemia Social history: denies: smoking Family history: hypertension Medications and Allergies Allergies Allergy/AdvReac Type Severity Reaction Status Date / Time No Known Allergies Allergy Unverified 08/25/20 10:28 Home Medications Medication Instructions Recorded Confirmed Last Taken Type No Known Home Medications [No 08/25/20 08/25/20 Unknown History Reported Home Medications] Active Meds: Active Medications Acetaminophen (Tylenol) 650 mg PO Q4H PRN PRN Reason: Pain MILD(1-3)/Fever >100.5/PLASENCIA Hydrocodone Bitart/Acetaminophen ([place] 5/325) 2 each PO Q6H PRN PRN Reason: Pain, Moderate (4-6) Albuterol/Ipratropium (Duoneb *Not For Prn Use*) 1 ampul IH Q6HRT [facility] Last Admin: 08/28/20 07:57 Dose: 1 ampul Documented by: Ascorbic Acid (Vitamin C) 1,000 mg PO BID [facility] Enoxaparin Sodium (Enoxaparin) 40 mg SUB-Q QDAY@2200 [facility]; Protocol Last Admin: 08/27/20 22:12 Dose: 40 mg Documented by: Furosemide (Lasix) 40 mg IV 0600,1800 [facility] Last Admin: 08/28/20 06:09 Dose: 40 mg Documented by: Ceftriaxone Sodium (Rocephin/Ns 2 Gm/100 Ml) 2 gm in 100 mls @ 200 mls/hr IV Q24HR [facility]; Protocol Last Admin: 08/27/20 10:55 Dose: 200 mls/hr Documented by: Azithromycin 500 mg/ Sodium (Chloride) 250 mls @ 250 mls/hr IV Q24HR [facility]; Pro tocol Stop: 08/29/20 10:59 Last Admin: 08/27/20 11:34 Dose: 250 mls/hr Documented by: Methylprednisolone Sodium Succinate (Solu-Medrol) 40 mg IV Q8HR [facility] Last Admin: 08/28/20 06:09 Dose: 40 mg Documented by: Ondansetron HCl (Zofran) 4 mg IV Q8H PRN PRN Reason: N/V unrelieved by Reglan Zinc Sulfate (Zinc Sulfate) 220 mg PO QDAY [facility] Physical Examination - Physical Exam Narrative exam: Physical Exam: reviewed ED and hospitalist notes, limited due to conservation of PPE and decrease risk of transmission. General appearance: limited due to conservation of PPE Eyes: limited due to conservation of PPE HENT: Atraumatic; limited due to conservation of PPE Lungs: limited due to conservation of PPE CV: limited due to conservation of PPE Abdomen: limited due to conservation of PPE Extremities: limited due to conservation of PPE Skin: limited due to conservation of PPE Psych: limited due to conservation of PPE Neuro: limited due to conservation of PPE - Constitutional Vitals: Vital Signs Temp Pulse Resp BP Pulse Ox 98.4 F 87 920 H 133/94 98 08/28/20 06:00 08/28/20 07:58 08/28/20 07:58 08/28/20 06:00 08/28/20 07:58 Temperature -Last 24 Hours Temperature 98.4 F Temperature 97.6 F Results - Labs CBC & Chem 7: 08/26/20 04:26 08/26/20 04:26 Assessment and Plan Cultures: Blood culture 08/25/2020 no growth today SARS CoV2 PCR positive Assessment: 64 years old male without any past medical history, admitted on 08/25/2020 due to 5-day history of body ache, dry cough, worsening shortness of breath: #Severe COVID pneumonia +/- ?CHF exacerbation: SARS-CoV-2 PCR positive. Chest CTA shows moderate bilateral pleural effusion and interstitial infiltrates. SARS-CoV-2 PCR positive. BMP in the 10,000. Procalcitonin normal. #Acute hypoxemic respiratory failure: Likely a combination of Covid pneumonia and possible CHF exacerbation. #Elevated LFTs: from COVID #? Bilateral pleural effusion: Secondary to CHF exacerbation. #?CHF: Unknown EF Recommendations: -Obtain a transthoracic echo -Started on Solu-Medrol -Start Remdesivir 200 mg IV q day x 1 day followed by 100 mg IV q day x 4 days (CrCl>30. Order placed) -if available/facility run out of stock -Monitor inflammatory markers - ferritin, Ddimer, CRP, LDH every 48 hours, ordered today -Stop ceftriaxone and azithromycin, procalcitonin <0.25 ng/mL -Monitor liver function test on Remdesivir -Continue anticoagulation per System Protocol -Prone positioning as possible -Obtain SARS CoV-2 IgG to determine if patient is a candidate for COVID convalescent plasma -Monitor oxygenation if worsening please consult pulmonary All laboratory, cultures and imaging were reviewed. Will follow Lianne Nunez MD Infectious Diseases [facility] M [phone] O [phone]
[2020-08-28] MEDS: cefTRIAXone/NS 2 GM/100 ML 2 GM/100 ML BAG IV SCH (11:06)
[2020-08-28] MEDS: AZITHROMYCIN 500 MG in SODIUM CHLORIDE 0.9% 250ML 250 ML IV SCH (11:06)
[2020-08-28] MEDS: ASCORBIC ACID 500 MG TAB PO SCH ×2 (11:07→22:37)
[2020-08-28] MEDS: ZINC SULFATE 220 MG CAP PO SCH (11:07)
[2020-08-28 11:35] LABS: C-Reactive Protein 0.7 mg/dL (0.00-1.30)
--- NOTE | 2020-08-28 12:11 | Event Note ---
Consulted for COVID 19 pnuemonia and bilateral pleural effusions. Cardiology has signed off. No echo done, likely secondary to COVID and BNP was >10k on admit. Oxygen down to 2 liters, was set at 4 on admit. ID seeing for the first time today. Agree with ID recs in regards to Remdisivir and steroids. Suggested continued diuresis and repeat CXR to see if effusions are improving. Will need echo at some point to assess left and right heart. Suggest proning during the day as much as possible and sleep prone at night if tolerated. Wean FiO2 for sats >88%. Per H and P has history of asthma. Suggest BID pulmicort and Brovana therapy. If symbicort is available here can do 80/4.5 2 puffs BID limit aerosolization given COVID diagnosis. At this point, appears breathing is improving with diuresis. Will sign off call if questions.
[2020-08-28] MEDS ORDERED: REMDESIVIR 100 MG VIAL IV ONE (13:00)
[2020-08-28] MEDS ORDERED: REMDESIVIR 200 MG in SODIUM CHLORIDE 0.9% 250ML 250 ML IV ONE (13:00)
[2020-08-28] MEDS: SODIUM CHLORIDE 0.9% 50 ML IVPB IV SCH (13:27)
[2020-08-28 14:27] LABS: C-Reactive Protein 0.7 mg/dL (0.00-1.30)
--- NOTE | 2020-08-28 16:02 | Progress Note ---
Assessment and Plan Assessment and plan: Patient is a 64-year-old male who is presenting with shortness of breath. Patient states he has had increased work of breathing for the last 5 days. Denies productive cough. States he has been no fever body aches. Patient is called paramedics because of shortness of breath today. Paramedics state the patient was wheezing on their arrival and his O2 sats were 90% on room air. He received neb treatment was started on BiPAP given 2 g of magnesium prior to his arrival. Patient is denying any nausea vomiting diarrhea at this time. CT chest: Bilataleral Moderate Pleural Effusion. Pulmonary consulted, Input noted: per recommendation Oxygen down to 2 liters, was set at 4 on admit. ID seeing for the first time today. Agree with ID recs in regards to Remdisivir and steroids. Suggested continued diuresis and repeat CXR to see if effusions are improving. Will need echo at some point to assess left and right heart. Suggest proning during the day as much as possible and sleep prone at night if tolerated. Wean FiO2 for sats >88%. Per H and P has history of asthma. Suggest BID pulmicort and Brovana therapy. If symbicort is available here can do 80/4.5 2 puffs BID limit aerosolization given COVID diagnosis. At this point, appears breathing is improving with diuresis. ID input noted: Remdesivir 200 mg IV q day x 1 day followed by 100 mg IV q day x 4 days (CrCl>30. Order placed) -if available/facility run out of stock. -Monitor inflammatory markers - ferritin, Ddimer, CRP, LDH every 48 hours, ordered today Severe COVID pneumonia +/- ?CHF exacerbation: SARS-CoV-2 PCR positive COVID 19 + Acute hypoxemic respiratory failure Acute CHF exacerbation ?Systolic Elevated LFTs: from COVID Bilateral pleural effusion: Secondary to CHF exacerbation. Plan Start on steroids Thoracentesis is able to obtain and send to labs Repeat cxr in a day or two Start Pulmicort and Brovana Remdesivir if available Echo Monitor liver function test on Remdesivir Continue anticoagulation per System Protocol Prone positioning as possible Ambulate daily Disease education conducted, patient is full code, prognosis discussed, care plan discussed, patient knowledges understanding and agreement with care plan, +30 minutes. History Interval history: Patient seen and examined, still in mild distress, respiratory singh, sitting up, cough intermittent, sounds coarse. Hospitalist Physical - Physical exam Narrative exam: GENERAL: well-developed and well-nourished elderly male lying on bed appeared to be in mild discomfort. HEENT: Normocephalic. Atraumatic. No conjunctival congestion or icterus. Patient has moist mucous membranes. NECK: Supple. Trachea midline. CHEST/LUNGS: coarse BS auscultated bilaterally, breathing labored. + wheezes HEART/CARDIOVASCULAR: Regular in rate and rhythm. S1 and S2 positive. ABDOMEN: Abdomen is soft, nontender. Patient has normal bowel sounds. SKIN: There is no rash. Warm and dry. NEURO: No focal motor deficit. Follows command. MUSCULOSKELETAL: No joint effusion or tenderness. EXTRIMITY: No edema, no cyanosis or clubbing. PSYCH: Cooperative. - Constitutional Vitals: Temp Pulse Resp BP Pulse Ox 98.4 F 84 16 133/94 98 08/28/20 06:00 08/28/20 13:59 08/28/20 13:59 08/28/20 06:00 08/28/20 07:58 General appearance: Present: mild distress Results - Labs CBC & Chem 7: 08/26/20 04:26 08/28/20 10:49 Labs: Laboratory Last Values WBC 8.2 K/mm3 (4.5-11.0) 08/26/20 04:26 RBC 3.84 M/mm3 (3.65-5.03) 08/26/20 04:26 Hgb 10.8 gm/dl (11.8-15.2) L 08/26/20 04:26 Hct 32.3 % (35.5-45.6) L 08/26/20 04:26 MCV 84 fl (84-94) 08/26/20 04:26 MCH 28 pg (28-32) 08/26/20 04:26 MCHC 34 % (32-34) 08/26/20 04:26 RDW 16.4 % (13.2-15.2) H 08/26/20 04:26 Plt Count 279 K/mm3 (140-440) 08/26/20 04:26 Lymph % (Auto) 9.2 % (13.4-35.0) L 08/26/20 04:26 [place] % (Auto) 7.5 % (0.0-7.3) H 08/26/20 04:26 Eos % (Auto) 0.0 % (0.0-4.3) 08/26/20 04:26 Baso % (Auto) 0.2 % (0.0-1.8) 08/26/20 04:26 Lymph # (Auto) 0.8 K/mm3 (1.2-5.4) L 08/26/20 04:26 [place] # (Auto) 0.6 K/mm3 (0.0-0.8) 08/26/20 04:26 Eos # (Auto) 0.0 K/mm3 (0.0-0.4) 08/26/20 04:26 Baso # (Auto) 0.0 K/mm3 (0.0-0.1) 08/26/20 04:26 Seg Neutrophils % 83.1 % (40.0-70.0) H 08/26/20 04:26 Seg Neutrophils # 6.8 K/mm3 (1.8-7.7) 08/26/20 04:26 D-Dimer 1027.54 ng/mlDDU (0-234) H 08/28/20 13:23 Sodium 140 mmol/L (137-145) 08/26/20 04:26 Potassium 4.5 mmol/L (3.6-5.0) 08/26/20 04:26 Chloride 103.7 mmol/L (98-107) 08/26/20 04:26 Carbon Dioxide 27 mmol/L (22-30) 08/26/20 04:26 Anion Gap 14 mmol/L 08/26/20 04:26 BUN 26 mg/dL (9-20) H 08/26/20 04:26 Creatinine 0.7 mg/dL (0.8-1.3) L 08/26/20 04:26 Estimated GFR > 60 ml/min 08/26/20 04:26 BUN/Creatinine Ratio 37 % 08/26/20 04:26 Glucose 208 mg/dL (75-100) H 08/28/20 10:49 Lactic Acid 1.30 mmol/L (0.7-2.0) 08/25/20 17:21 Calcium 8.1 mg/dL (8.4-10.2) L 08/26/20 04:26 Ferritin 86.9 ng/mL (30.0-300.0) 08/28/20 13:23 Total Bilirubin 0.40 mg/dL (0.1-1.2) 08/25/20 10:51 AST 41 units/L (5-40) H 08/25/20 10:51 ALT 30 units/L (7-56) 08/25/20 10:51 Alkaline Phosphatase 124 units/L (35-129) 08/25/20 10:51 Lactate Dehydrogenase 205 units/L (91-180) H 08/28/20 13:23 C-Reactive Protein 0.70 mg/dL (0.00-1.30) 08/28/20 13:23 NT-Pro-B Natriuret Pep 03519 pg/mL (0-900) H 08/25/20 12:01 Total Protein 6.9 g/dL (6.3-8.2) 08/25/20 10:51 Albumin 3.1 g/dL (3.9-5) L 08/25/20 10:51 Albumin/Globulin Ratio 0.8 % 08/25/20 10:51 Procalcitonin < 0.05 ng/mL (<0.15) 08/25/20 10:51 Urine Color Yellow (Yellow) 08/25/20 14:13 Urine Turbidity Clear (Clear) 08/25/20 14:13 Urine pH 5.0 (5.0-7.0) 08/25/20 14:13 Ur Specific [place] 1.027 (1.003-1.030) 08/25/20 14:13 Urine Protein 100 mg/dl mg/dL (Negative) 08/25/20 14:13 Urine Glucose (UA) Neg mg/dL (Negative) 08/25/20 14:13 Urine Ketones Neg mg/dL (Negative) 08/25/20 14:13 Urine Blood Neg (Negative) 08/25/20 14:13 Urine Nitrite Neg (Negative) 08/25/20 14:13 Urine Bilirubin Neg (Negative) 08/25/20 14:13 Urine Urobilinogen < 2.0 mg/dL (<2.0) 08/25/20 14:13 Ur Leukocyte Esterase Neg (Negative) 08/25/20 14:13 Urine WBC (Auto) 1.0 /HPF (0.0-6.0) 08/25/20 14:13 Urine RBC (Auto) 2.0 /HPF (0.0-6.0) 08/25/20 14:13 U Epithel Cells (Auto) 1.0 /HPF (0-13.0) 08/25/20 14:13 Urine Mucus Few /HPF 08/25/20 14:13 Coronavirus (PCR) Positive (Negative) A 08/26/20 Unknown SARS-CoV-2 IgG Ab Nonreactive (NonReactive) 08/28/20 13:23 Microbiology: Microbiology 08/25/20 Unknown Peripheral/Venous Blood Culture - Preliminary NO GROWTH AFTER 72 HOURS 08/25/20 Unknown Peripheral/Venous Blood Culture - Preliminary NO GROWTH AFTER 72 HOURS Collins/IV: Voiding Method Toilet Active Medications - Current Medications Current Medications: Generic Name Dose Route Start Last Admin Trade Name Freq PRN Reason Stop Dose Admin Acetaminophen 650 mg 08/25/20 15:00 Tylenol PO Q4H PRN Pain MILD(1-3)/Fever >100.5/PLASENCIA Hydrocodone Bitart/Acetaminophen 2 each 08/25/20 15:00 [place] 5/325 PO Q6H PRN Pain, Moderate (4-6) Albuterol/Ipratropium 1 ampul 08/25/20 15:00 08/28/20 13:57 Duoneb *Not For Prn Use* IH 1 ampul Q6HRT SARITA Administration Ascorbic Acid 1,000 mg 08/28/20 12:00 08/28/20 11:07 Vitamin C PO 1,000 mg BID SARITA Administration Enoxaparin Sodium 40 mg 08/25/20 22:00 08/27/20 22:12 Enoxaparin SUB-Q 40 mg QDAY@2200 [facility] Administration Protocol Furosemide 40 mg 08/25/20 18:00 08/28/20 06:09 Lasix IV 40 mg 0600,1800 [facility] Administration REMDESIVIR 100 mg/ Sodium 250 mls @ 500 mls/hr 08/29/20 21:00 Chloride IV 09/01/20 21:29 Q24HR@2100 SARITA Methylprednisolone Sodium Succinate 40 mg 08/26/20 14:00 08/28/20 15:07 Solu-Medrol IV 40 mg Q8HR SARITA Administration Ondansetron HCl 4 mg 08/25/20 15:00 Zofran IV Q8H PRN N/V unrelieved by Cynthia Sodium Chloride 50 ml 08/28/20 13:00 08/28/20 13:27 Nacl 0.9% IV 09/01/20 21:01 50 ml Q24HR@2100 SARITA Administration Zinc Sulfate 220 mg 08/28/20 12:00 08/28/20 11:07 Zinc Sulfate PO 220 mg QDAY SARITA Administration
[2020-08-28] MEDS: ENOXAPARIN 40 MG/0.4 ML INJ SUB-Q SCH (22:36)
[2020-08-28] MEDS: ALBUTEROL 8.5 GM MDI INHALATION IH SCH (23:03)
[2020-08-28] MEDS: ARFORMOTEROL 15 MCG/2 ML NEBU IH SCH (23:03)
[2020-08-28] MEDS: BUDESONIDE 0.5 MG/2 ML NEBU IH SCH (23:03)
[2020-08-29] MEDS: ALBUTEROL 8.5 GM MDI INHALATION IH SCH ×4 (05:06→20:57)
[2020-08-29] MEDS: methylPREDNISolone Sod Succinate 40 MG/1 ML INJ IV SCH ×3 (06:30→22:44)
[2020-08-29] MEDS: FUROSEMIDE 40 MG/4 ML INJ IV SCH ×2 (06:30→17:11)
[2020-08-29] MEDS: ARFORMOTEROL 15 MCG/2 ML NEBU IH SCH ×2 (07:32→20:51)
[2020-08-29] MEDS: BUDESONIDE 0.5 MG/2 ML NEBU IH SCH ×2 (07:32→20:50)
[2020-08-29 08:44] LABS: Hematocrit 36.7 % (35.5-45.6); Hemoglobin 11.9 gm/dl (11.8-15.2); Mean Corpuscular HGB Conc 33 % (32-34); Mean Corpuscular Volume 83 fl (84-94); Platelet Count 311 K/mm3 (140-440); Red Cell Distribution Width 16.5 % (13.2-15.2)
[2020-08-29 09:01] LABS: BUN/Creatinine Ratio 25; Blood Urea Nitrogen 20 mg/dL (9-20); Calcium 8.5 mg/dL (8.4-10.2); Hemolysis Index 13
--- NOTE | 2020-08-29 09:24 | Progress Note ---
Assessment and Plan Cultures: Blood culture 08/25/2020 no growth today SARS CoV2 PCR positive Assessment: 64 years old male without any past medical history, admitted on 08/25/2020 due to 5-day history of body ache, dry cough, worsening shortness of breath: #Severe COVID pneumonia +/- ?CHF exacerbation: SARS-CoV-2 PCR positive. Chest CTA shows moderate bilateral pleural effusion and interstitial infiltrates. SARS-CoV-2 PCR positive. BMP in the 10,000. Procalcitonin normal. SARS-CoV-2 IgG negative. Ddimer worsening. Ferritin normal. #Acute hypoxemic respiratory failure: Likely a combination of Covid pneumonia and possible CHF exacerbation. Remains on 3L. #Elevated LFTs: from COVID #? Bilateral pleural effusion: Secondary to CHF exacerbation. #?CHF: Unknown EF Recommendations: -Obtain a transthoracic echo -pending -Obtain venous US r/o DVT -SARS CoV-2 IgG negative, patient may benefit from COVID convalescent plasma -Pulmonary on board -Started on Solu-Medrol -Continue Remdesivir total 5 days -Monitor inflammatory markers - ferritin, Ddimer, CRP, LDH every 48 hours -Monitor liver function test on Remdesivir -Continue anticoagulation per System Protocol -Prone positioning as possible All laboratory, cultures and imaging were reviewed. Will follow Lianne Nunez MD Infectious Diseases [employer]im Greaser Operator [facility] M [phone] O [phone] Subjective Date of service: 08/29/20 Principal diagnosis: COVID Interval history: Remains in 3L no fever Objective - Exam Narrative Exam: Physical Exam: reviewed ED and hospitalist notes, limited due to conservation of PPE and decrease risk of transmission. General appearance: limited due to conservation of PPE Eyes: limited due to conservation of PPE HENT: Atraumatic; limited due to conservation of PPE Lungs: limited due to conservation of PPE CV: limited due to conservation of PPE Abdomen: limited due to conservation of PPE Extremities: limited due to conservation of PPE Skin: limited due to conservation of PPE Psych: limited due to conservation of PPE Neuro: limited due to conservation of PPE - Constitutional Vitals: Vital Signs Temp Pulse Resp BP Pulse Ox 97.6 F 88 16 137/94 94 08/29/20 04:34 08/29/20 07:33 08/29/20 07:33 08/29/20 04:34 08/29/20 07:34 Temperature -Last 24 Hours Temperature 97.6 F Temperature 98.7 F Temperature 98.0 F Temperature 97.7 F - Labs CBC & Chem 7: 08/29/20 07:37 08/29/20 07:37 Labs: Abnormal lab results 08/28/20 08/28/20 08/28/20 Range/Units 10:49 10:49 13:23 MCV (84-94) fl MCH (28-32) pg RDW (13.2-15.2) % D-Dimer 984.49 H 1027.54 H (0-234) ng/mlDDU Chloride (98-107) mmol/L Carbon Dioxide (22-30) mmol/L Glucose 208 H (75-100) mg/dL Lactate Dehydrogenase 200 H (91-180) units/L 08/28/20 08/29/20 08/29/20 Range/Units 13:23 07:37 07:37 MCV 83 L (84-94) fl MCH 27 L (28-32) pg RDW 16.5 H (13.2-15.2) % D-Dimer (0-234) ng/mlDDU Chloride 95.7 L (98-107) mmol/L Carbon Dioxide 39 H D (22-30) mmol/L Glucose 133 H (75-100) mg/dL Lactate Dehydrogenase 205 H (91-180) units/L
--- NOTE | 2020-08-29 14:05 | Vascular Lab Report ---
DUPLEX DOPPLER LOWER EXTREMITY VEINS, BILATERAL INDICATION / CLINICAL INFORMATION: eval legs DVT. Lower extremity pain and swelling. TECHNIQUE: Duplex doppler imaging was performed through the veins of both lower extremities using venous kaylin gil and other maneuvers. COMPARISON: None available. FINDINGS: Right Common Femoral vein: Negative. Right Femoral vein: Negative. Right Popliteal vein: Negative. Right Calf veins: Negative. Left Common Femoral vein: Negative. Left Femoral vein: Negative. Left Popliteal vein: Negative. Left Calf veins: Negative. Additional findings: None. IMPRESSION: 1. No sonographic evidence for DVT in either lower extremity. Signer Name: Adam Martínez MD Signed: 08/29/2020 2:01 PM Workstation Name: [id number]
--- NOTE | 2020-08-29 14:25 | Progress Note ---
Assessment and Plan Assessment and plan: Patient is a 64-year-old male who is presenting with shortness of breath. Patient states he has had increased work of breathing for the last 5 days. Denies productive cough. States he has been no fever body aches. Patient is called paramedics because of shortness of breath today. Paramedics state the patient was wheezing on their arrival and his O2 sats were 90% on room air. He received neb treatment was started on BiPAP given 2 g of magnesium prior to his arrival. Patient is denying any nausea vomiting diarrhea at this time. CT chest: Bilataleral Moderate Pleural Effusion. Pulmonary consulted, Input noted: per recommendation Oxygen down to 2 liters, was set at 4 on admit. ID seeing for the first time today. Agree with ID recs in regards to Remdisivir and steroids. Suggested continued diuresis and repeat CXR to see if effusions are improving. Will need echo at some point to assess left and right heart. Suggest proning during the day as much as possible and sleep prone at night if tolerated. Wean FiO2 for sats >88%. Per H and P has history of asthma. Suggest BID pulmicort and Brovana therapy. If symbicort is available here can do 80/4.5 2 puffs BID limit aerosolization given COVID diagnosis. At this point, appears breathing is improving with diuresis. ID input noted: Remdesivir 200 mg IV q day x 1 day followed by 100 mg IV q day x 4 days (CrCl>30. Order placed) -if available/facility run out of stock. -Monitor inflammatory markers - ferritin, Ddimer, CRP, LDH every 48 hours, ordered today Lower extremity Doppler negative Severe COVID pneumonia +/- ?CHF exacerbation: SARS-CoV-2 PCR positive COVID 19 + Acute hypoxemic respiratory failure Acute CHF exacerbation ?Systolic Elevated LFTs: from COVID Bilateral pleural effusion: Secondary to CHF exacerbation. Plan 08/29: Continues on oxygen. Will repeat x-ray in a.m. Continue to monitor inflammatory markers. Awaiting thoracentesis. Discussed with nursing staff will obtain ambulatory oxygen saturation on room air Continue on steroids Thoracentesis is able to obtain and send to labs Repeat cxr in a day or two Start Pulmicort and Brovana Remdesivir if available Echo Monitor liver function test on Remdesivir Continue anticoagulation per System Protocol Prone positioning as possible Ambulate daily Disease education conducted, patient is full code, prognosis discussed, care plan discussed, patient knowledges understanding and agreement with care plan, +30 minutes. History Interval history: Patient seen and examined, still in mild distress, remains on 3 L of oxygen saturation 94% sitting up. Unfortunately I have not seen an oxygen evaluation work-up ordered yesterday. Hospitalist Physical - Physical exam Narrative exam: GENERAL: well-developed and well-nourished elderly male sitting up appeared to be in mild discomfort. HEENT: Normocephalic. Atraumatic. No conjunctival congestion or icterus. Patient has moist mucous membranes. NECK: Supple. Trachea midline. CHEST/LUNGS: coarse BS auscultated bilaterally, breathing labored. + wheezes HEART/CARDIOVASCULAR: Regular in rate and rhythm. S1 and S2 positive. ABDOMEN: Abdomen is soft, nontender. Patient has normal bowel sounds. SKIN: There is no rash. Warm and dry. NEURO: No focal motor deficit. Follows command. MUSCULOSKELETAL: No joint effusion or tenderness. EXTRIMITY: No edema, no cyanosis or clubbing. PSYCH: Cooperative. - Constitutional Vitals: Temp Pulse Resp BP Pulse Ox 97.6 F 88 16 137/94 94 08/29/20 04:34 08/29/20 07:33 08/29/20 07:33 08/29/20 04:34 08/29/20 07:34 General appearance: Present: mild distress Results - Labs CBC & Chem 7: 08/29/20 07:37 08/29/20 07:37 Labs: Laboratory Last Values WBC 9.2 K/mm3 (4.5-11.0) 08/29/20 07:37 RBC 4.40 M/mm3 (3.65-5.03) 08/29/20 07:37 Hgb 11.9 gm/dl (11.8-15.2) 08/29/20 07:37 Hct 36.7 % (35.5-45.6) 08/29/20 07:37 MCV 83 fl (84-94) L 08/29/20 07:37 MCH 27 pg (28-32) L 08/29/20 07:37 MCHC 33 % (32-34) 08/29/20 07:37 RDW 16.5 % (13.2-15.2) H 08/29/20 07:37 Plt Count 311 K/mm3 (140-440) 08/29/20 07:37 Lymph % (Auto) 9.2 % (13.4-35.0) L 08/26/20 04:26 [place] % (Auto) 7.5 % (0.0-7.3) H 08/26/20 04:26 Eos % (Auto) 0.0 % (0.0-4.3) 08/26/20 04:26 Baso % (Auto) 0.2 % (0.0-1.8) 08/26/20 04:26 Lymph # (Auto) 0.8 K/mm3 (1.2-5.4) L 08/26/20 04:26 [place] # (Auto) 0.6 K/mm3 (0.0-0.8) 08/26/20 04:26 Eos # (Auto) 0.0 K/mm3 (0.0-0.4) 08/26/20 04:26 Baso # (Auto) 0.0 K/mm3 (0.0-0.1) 08/26/20 04:26 Seg Neutrophils % 83.1 % (40.0-70.0) H 08/26/20 04:26 Seg Neutrophils # 6.8 K/mm3 (1.8-7.7) 08/26/20 04:26 D-Dimer 1027.54 ng/mlDDU (0-234) H 08/28/20 13:23 Sodium 141 mmol/L (137-145) 08/29/20 07:37 Potassium 3.8 mmol/L (3.6-5.0) 08/29/20 07:37 Chloride 95.7 mmol/L (98-107) L 08/29/20 07:37 Carbon Dioxide 39 mmol/L (22-30) H D 08/29/20 07:37 Anion Gap 10 mmol/L 08/29/20 07:37 BUN 20 mg/dL (9-20) 08/29/20 07:37 Creatinine 0.8 mg/dL (0.8-1.3) 08/29/20 07:37 Estimated GFR > 60 ml/min 08/29/20 07:37 BUN/Creatinine Ratio 25 % 08/29/20 07:37 Glucose 133 mg/dL (75-100) H 08/29/20 07:37 Lactic Acid 1.30 mmol/L (0.7-2.0) 08/25/20 17:21 Calcium 8.5 mg/dL (8.4-10.2) 08/29/20 07:37 Ferritin 86.9 ng/mL (30.0-300.0) 08/28/20 13:23 Total Bilirubin 0.40 mg/dL (0.1-1.2) 08/25/20 10:51 AST 41 units/L (5-40) H 08/25/20 10:51 ALT 30 units/L (7-56) 08/25/20 10:51 Alkaline Phosphatase 124 units/L (35-129) 08/25/20 10:51 Lactate Dehydrogenase 205 units/L (91-180) H 08/28/20 13:23 C-Reactive Protein 0.70 mg/dL (0.00-1.30) 08/28/20 13:23 NT-Pro-B Natriuret Pep 17541 pg/mL (0-900) H 08/25/20 12:01 Total Protein 6.9 g/dL (6.3-8.2) 08/25/20 10:51 Albumin 3.1 g/dL (3.9-5) L 08/25/20 10:51 Albumin/Globulin Ratio 0.8 % 08/25/20 10:51 Procalcitonin < 0.05 ng/mL (<0.15) 08/25/20 10:51 Urine Color Yellow (Yellow) 08/25/20 14:13 Urine Turbidity Clear (Clear) 08/25/20 14:13 Urine pH 5.0 (5.0-7.0) 08/25/20 14:13 Ur Specific [place] 1.027 (1.003-1.030) 08/25/20 14:13 Urine Protein 100 mg/dl mg/dL (Negative) 08/25/20 14:13 Urine Glucose (UA) Neg mg/dL (Negative) 08/25/20 14:13 Urine Ketones Neg mg/dL (Negative) 08/25/20 14:13 Urine Blood Neg (Negative) 08/25/20 14:13 Urine Nitrite Neg (Negative) 08/25/20 14:13 Urine Bilirubin Neg (Negative) 08/25/20 14:13 Urine Urobilinogen < 2.0 mg/dL (<2.0) 08/25/20 14:13 Ur Leukocyte Esterase Neg (Negative) 08/25/20 14:13 Urine WBC (Auto) 1.0 /HPF (0.0-6.0) 08/25/20 14:13 Urine RBC (Auto) 2.0 /HPF (0.0-6.0) 08/25/20 14:13 U Epithel Cells (Auto) 1.0 /HPF (0-13.0) 08/25/20 14:13 Urine Mucus Few /HPF 08/25/20 14:13 Coronavirus (PCR) Positive (Negative) A 08/26/20 Unknown SARS-CoV-2 IgG Ab Nonreactive (NonReactive) 08/28/20 13:23 Microbiology: Microbiology 08/25/20 Unknown Peripheral/Venous Blood Culture - Preliminary NO GROWTH AFTER 4 DAYS 08/25/20 Unknown Peripheral/Venous Blood Culture - Preliminary NO GROWTH AFTER 4 DAYS Collins/IV: Voiding Method Toilet Active Medications - Current Medications Current Medications: Generic Name Dose Route Start Last Admin Trade Name Freq PRN Reason Stop Dose Admin Acetaminophen 650 mg 08/25/20 15:00 Tylenol PO Q4H PRN Pain MILD(1-3)/Fever >100.5/PLASENCIA Hydrocodone Bitart/Acetaminophen 2 each 08/25/20 15:00 [place] 5/325 PO Q6H PRN Pain, Moderate (4-6) Albuterol 2 puff 08/28/20 20:00 08/29/20 13:06 Proair IH Not Given Q6HRT [facility] Arformoterol Tartrate 15 mcg 08/28/20 20:00 08/29/20 07:32 Brovana Nebu IH 15 mcg Q12HRT SARITA Administration Ascorbic Acid 1,000 mg 08/28/20 12:00 08/28/20 22:37 Vitamin C PO 1,000 mg BID SARITA Administration Budesonide 0.5 mg 08/28/20 20:00 08/29/20 07:32 Pulmicort IH 0.5 mg Q12HRT SARITA Administration Enoxaparin Sodium 40 mg 08/25/20 22:00 08/28/20 22:36 Enoxaparin SUB-Q 40 mg QDAY@2200 SARITA Administration Protocol Furosemide 40 mg 08/25/20 18:00 08/29/20 06:30 Lasix IV 40 mg 0600,1800 SARITA Administration REMDESIVIR 100 mg/ Sodium 250 mls @ 500 mls/hr 08/29/20 21:00 Chloride IV 09/01/20 21:29 Q24HR@2100 SARITA Methylprednisolone Sodium Succinate 40 mg 08/26/20 14:00 08/29/20 13:21 Solu-Medrol IV 40 mg Q8HR SARITA Administration Ondansetron HCl 4 mg 08/25/20 15:00 Zofran IV Q8H PRN N/V unrelieved by Reglan Sodium Chloride 50 ml 08/28/20 13:00 08/28/20 13:27 Nacl 0.9% IV 09/01/20 21:01 50 ml Q24HR@2100 SARITA Administration Zinc Sulfate 220 mg 08/28/20 12:00 08/28/20 11:07 Zinc Sulfate PO 220 mg QDAY SARITA Administration
--- NOTE | 2020-08-29 15:51 | Procedure Note ---
Date of procedure: 08/29/20 Pre-op diagnosis: pleural effusion Post-op diagnosis: same Procedure: us thora Findings: right pl effusion Anesthesia: local Surgeon: PAUL HOOK Estimated blood loss: none Pathology: list (120cc) Specimen disposition: to lab Condition: stable Disposition: floor
[2020-08-29] MEDS: ZINC SULFATE 220 MG CAP PO SCH (17:11)
[2020-08-29] MEDS: ASCORBIC ACID 500 MG TAB PO SCH ×2 (17:11→22:43)
[2020-08-29 17:43] LABS: Total Cells Counted 100 /mm3
[2020-08-29 17:44] LABS: Monocytes Body Fluid 11 %
--- NOTE | 2020-08-29 20:20 | XRay Report ---
Chest single view INDICATION: Dyspnea IMPRESSION: Small residual left pleural effusion. No pneumothorax appreciated. Signer Name: Adam Martínez MD Signed: 08/29/2020 8:15 PM Workstation Name: [id number]
[2020-08-29] MEDS ORDERED: REMDESIVIR 100 MG in SODIUM CHLORIDE 0.9% 250ML 250 ML IV SCH (21:00)
[2020-08-29] MEDS: SODIUM CHLORIDE 0.9% 50 ML IVPB IV SCH (21:43)
[2020-08-29] MEDS: ENOXAPARIN 40 MG/0.4 ML INJ SUB-Q SCH (22:43)
[2020-08-30] MEDS: ALBUTEROL 8.5 GM MDI INHALATION IH SCH (01:45)
[2020-08-30] MEDS: methylPREDNISolone Sod Succinate 40 MG/1 ML INJ IV SCH ×2 (06:01→15:51)
[2020-08-30] MEDS: FUROSEMIDE 40 MG/4 ML INJ IV SCH ×2 (06:01→18:27)
--- NOTE | 2020-08-30 08:38 | Ultrasound Report ---
Ultrasound-guided thoracentesis HISTORY: pleural effusion, diagnostic and therapeutic. Right pleural effusion COMPARISON: Previous chest x-rays PROCEDURE: The risks (including but not limited to bleeding, infection, and pneumothorax) and benefi ts were explained to the patient and informed consent was obtained. A time out procedure was perform ed. Ultrasound was used to evaluate the right pleural effusion and locate the optimal site for needle ent ry. Once the skin was marked, the procedure site was prepped and draped in the usual sterile fashion and lidocaine was used for local anesthesia. A skin armida was made and a 6-Vietnamese thoracentesis cath eter was placed. The patient was monitored closely throughout the procedure, and a total of 1000 mL of clear yellow fluid was aspirated. Samples were sent to the lab for further evaluation per the [facility] orders. The patient tolerated the procedure well with no complications. A post-procedure chest x-ray was imm ediately ordered. IMPRESSION: Successful ultrasound-guided right thoracentesis Signer Name: Blaine Trinidad Jr, MD Signed: 08/30/2020 7:42 AM Workstation Name: [id number]
--- NOTE | 2020-08-30 08:42 | Discharge Summary ---
Providers - Providers Date of Admission: 08/27/20 09:46 Attending physician: STEF CARDENAS MD 08/25/20 15:00 Consult to Physician [CONS] Routine Comment: Consulting Provider: SATHISH AMARO Physician Instructions: Reason For Exam: CHF 08/28/20 10:17 Consult to Physician [CONS] Routine Comment: Consulting Provider: ROLANDO RODNEY Physician Instructions: Reason For Exam: covid 19 08/28/20 10:19 Consult to Physician [CONS] Routine Comment: Consulting Provider: CELINA HAWTHORNE Physician Instructions: Reason For Exam: shortness of breath, covid, pleural effuision Primary care physician: ELECTRONIC TEST TECHNICIAN Hospitalization Reason for admission: shortness of breath Condition: Stable Hospital course: Patient is a 64-year-old male who is presenting with shortness of breath. Patient states he has had increased work of breathing for the last 5 days. Denies productive cough. States he has been no fever body aches. Patient is called paramedics because of shortness of breath today. Paramedics state the patient was wheezing on their arrival and his O2 sats were 90% on room air. He received neb treatment was started on BiPAP given 2 g of magnesium prior to his arrival. Patient is denying any nausea vomiting diarrhea at this time. CT chest: Bilataleral Moderate Pleural Effusion. Pulmonary consulted, Input noted: per recommendation Oxygen down to 2 liters, was set at 4 on admit. ID seeing for the first time today. Agree with ID recs in regards to Remdisivir and steroids. Suggested continued diuresis and repeat CXR to see if effusions are improving. Will need echo at some point to assess left and right heart. Suggest proning during the day as much as possible and sleep prone at night if tolerated. Wean FiO2 for sats >88%. Per H and P has history of asthma. Suggest BID pulmicort and Brovana therapy. If symbicort is available here can do 80/4.5 2 puffs BID limit aerosolization given COVID diagnosis. At this point, appears breathing is improving with diuresis. ID input noted: Remdesivir 200 mg IV q day x 1 day followed by 100 mg IV q day x 4 days (CrCl>30. Order placed) -if available/facility run out of stock. - Monitor inflammatory markers - ferritin, Ddimer, CRP, LDH every 48 hours, ordered today Lower extremity Doppler negative Severe COVID pneumonia +/- ?CHF exacerbation: SARS-CoV-2 PCR positive COVID 19 + Acute hypoxemic respiratory failure Acute CHF exacerbation ?Systolic Elevated LFTs: from COVID Bilateral pleural effusion: Secondary to CHF exacerbation. Plan 08/29: Continues on oxygen. Will repeat x-ray in a.m. Continue to monitor inflammatory markers. Awaiting thoracentesis. Discussed with nursing staff will obtain ambulatory oxygen saturation on room air 08/30: Patient clinically improved, oxygen saturation 95% on room air, he is also s/p thoracentesis will discharge on steroids, advised about mask and isola tion, also recommend follow up with cardiology, multivitamins, and eliquis. He was treated with remdesivir Disposition: - TO HOME OR SELFCARE Time spent for discharge: 35 mins Core Measure Documentation - Palliative Care Palliative Care/ Comfort Measures: Not Applicable - Core Measures Any of the following diagnoses?: none Exam - Physical Exam Narrative exam: GENERAL: well-developed and well-nourished elderly male sitting, no distress during observed ambulation HEENT: Normocephalic. Atraumatic. No conjunctival congestion or icterus. Patient has moist mucous membranes. NECK: Supple. Trachea midline. CHEST/LUNGS: coarse BS auscultated bilaterally, breathing labored. + wheezes HEART/CARDIOVASCULAR: Regular in rate and rhythm. S1 and S2 positive. ABDOMEN: Abdomen is soft, nontender. Patient has normal bowel sounds. SKIN: There is no rash. Warm and dry. NEURO: No focal motor deficit. Follows command. MUSCULOSKELETAL: No joint effusion or tenderness. EXTRIMITY: No edema, no cyanosis or clubbing. PSYCH: Cooperative. - Constitutional Vitals: Temp Pulse Resp BP Pulse Ox 97.6 F 80 18 141/92 96 08/30/20 04:28 08/30/20 04:28 08/30/20 04:28 08/30/20 04:28 08/30/20 04:28 Plan Activity: advance as tolerated, fall precautions Diet: low fat, low salt Special Instructions: record daily weights, record daily BP diary, smoking cessation Additional Instructions: must continue social distancing. Use mask to help stem spread and keep family members safe. Patient verbalized understanding. Must have renal function test in 1 week with primary doctor Follow up with: TATE CHAMBERS MD [Primary Care Provider] - 7 Days ROLANDO RODNEY MD [Staff Physician] - 14 Days SATHISH AMARO MD [Staff Physician] - 14 Days CELINA HAWTHORNE MD [Staff Physician] - 7 Days Prescriptions: Fluticasone/Salmeterol [Advair Diskus 100-50 mcg] 1 puff IH BID #1 disk.w.dev Dexamethasone [Decadron] 6 mg PO DAILY #7 tablet Apixaban [Eliquis] 2.5 mg PO BID #60 tablet Furosemide [Lasix TAB] 40 mg PO QDAY #20 tablet Ascorbic Acid [Vitamin C] 1,000 mg PO BID #60 tablet Zinc Sulfate 220 mg PO QDAY #30 capsule
[2020-08-30] MEDS: ARFORMOTEROL 15 MCG/2 ML NEBU IH SCH (08:45)
[2020-08-30] MEDS: BUDESONIDE 0.5 MG/2 ML NEBU IH SCH (08:45)
[2020-08-30] MEDS: ASCORBIC ACID 500 MG TAB PO SCH (11:38)
[2020-08-30] MEDS: ZINC SULFATE 220 MG CAP PO SCH (11:38)
[2020-08-30 16:58] VITALS: BP 141/105
== END 2020-08-30 18:00 | disposition home or self-care (01) | DRG 177 ==
LOC: ED 10:15 → 3A 13:14 → OBSVTOIN 08-27 09:46
PROVIDERS: ADMIT Internal Medicine; ATTEND Internal Medicine
PROC: 5A09357 Assistance with Respiratory Ventilation, Less than 24 Consecutive Hours, Continuous Positive Airway Pressure (ICD-10-PCS; 2020-08-25)
PROC: XW033E5 Introduction of Remdesivir Anti-infective into Peripheral Vein, Percutaneous Approach, New Technology Group 5 (ICD-10-PCS; principal; 2020-08-28)
PROC: 0W9930Z Drainage of Right Pleural Cavity with Drainage Device, Percutaneous Approach (ICD-10-PCS; 2020-08-29)
DX: U07.1 COVID-19 (principal); J96.01 Acute respiratory failure with hypoxia; J12.89 Other viral pneumonia; I50.23 Acute on chronic systolic (congestive) heart failure; J90 Pleural effusion, not elsewhere classified; E87.1 Hypo-osmolality and hyponatremia; I11.0 Hypertensive heart disease with heart failure; E78.5 Hyperlipidemia, unspecified; J45.909 Unspecified asthma, uncomplicated; Z82.49 Family history of ischemic heart disease and other diseases of the circulatory system
CPT/HCPCS: 32555; 36415; 71045; 71275; 80048; 80053; 81001; 82140; 82728; 82947; 83605; 83615; 83880; 84145; 84160; 85025; 85027; 85379; 86140; 87040; 89051; 90686; 90732; 93005; 93970; 94640; 94760; 96365; 96372; 96375; G0378; J0456; J0696; J1170; J1650; J1940; J2920; J7040; J7050; Q9967; U0003

== ENCOUNTER 2020-09-05 02:34 | Inpatient (IN) | payer OTHER, SELFPAY ==
[2020-09-05 10:07] LABS: Basophils % (Auto) 0.4 % (0.0-1.8); Eosinophils # (Auto) 0.1 K/mm3 (0.0-0.4); Eosinophils % (Auto) 0.5 % (0.0-4.3); Hematocrit 33.2 % (35.5-45.6); Hemoglobin 11.2 gm/dl (11.8-15.2); Lymphocytes # (Auto) 1.5 K/mm3 (1.2-5.4); Lymphocytes % (Auto) 12.3 % (13.4-35.0); Mean Corpuscular HGB Conc 34 % (32-34); Mean Corpuscular Volume 84 fl (84-94); Monocytes # (Auto) 1.2 K/mm3 (0.0-0.8); Monocytes % (Auto) 10.3 % (0.0-7.3); Platelet Count 222 K/mm3 (140-440); Red Blood Count 3.95 M/mm3 (3.65-5.03); Red Cell Distribution Width 17.2 % (13.2-15.2)
[2020-09-05 10:33] LABS: Alanine Aminotransferase 30 units/L (7-56); Albumin 3.4 g/dL (3.9-5); Blood Urea Nitrogen 21 mg/dL (9-20); Calcium 8.4 mg/dL (8.4-10.2); Hemolysis Index 3
[2020-09-05 10:34] LABS: BUN/Creatinine Ratio 35
--- NOTE | 2020-09-05 10:45 | Emergency Department Report ---
HPI - General Chief Complaint: Dyspnea/Respdistress Time Seen by Provider: 09/05/20 10:04 - HPI HPI: This is a 64-year-old male presents to the emergency department with a complaint of shortness of breath and bilateral lower extremity swelling. Patient says that the shortness of breath started yesterday. It is associated with a cough, but the patient denies any fever, chest pain, nausea, vomiting, diaphoresis. The patient was admitted here last week for some similar symptoms and was found to have COVID-19 and a large right-sided pleural effusion. On 08/29 the patient had a right-sided thoracentesis in which they took out 1 L of fluid. The patient was discharged home on Lasix, Eliquis, steroids, zinc. Patient says that he has a history of asthma and hypertension, but it appears that he was also given outpatient referral for cardiology for suspicion of CHF. The patient symptoms worsen with exertion. ED Past Medical Hx - Past Medical History Hx Hypertension: Yes Hx Heart Attack/AMI: No Hx Congestive Heart Failure: No Hx Diabetes: No Hx Pulmonary Embolism: No Hx GERD: No Hx Liver Disease: No Hx Renal Disease: No Hx Sickle Cell Disease: No Hx Arthritis: No Hx Headaches / Migraines: No Hx Seizures: No Hx Kidney Stones: No Hx Asthma: Yes Hx COPD: No Hx Tuberculosis: No Hx Dementia: No Hx HIV: No Additional medical history: HLD - Surgical History Hx Coronary Stent: No Hx Open Heart Surgery: No Hx Pacemaker: No Hx Internal Defibrillator: No Hx Cholecystectomy: No Hx Appendectomy: No Hx Breast Surgery: No - Social History Smoking Status: Former Smoker Substance Use Type: None - Medications Home Medications: Home Medications Medication Instructions Recorded Confirmed Last Taken Type Apixaban [Eliquis] 2.5 mg PO BID #60 tablet 08/30/20 09/05/20 Unknown Rx Ascorbic Acid [Vitamin C] 1,000 mg PO BID #60 tablet 08/30/20 09/05/20 Unknown Rx Dexamethasone [Decadron] 6 mg PO DAILY #7 tablet 08/30/20 09/05/20 Unknown Rx Fluticasone/Salmeterol [Advair 1 puff IH BID #1 disk.w.dev 08/30/20 09/05/20 U nknown Rx Diskus 100-50 mcg] Furosemide [Lasix TAB] 40 mg PO QDAY #20 tablet 08/30/20 09/05/20 Unknown Rx Zinc Sulfate 220 mg PO QDAY #30 capsule 08/30/20 09/05/20 Unknown Rx ED Review of Systems ROS: Stated complaint: Other details as noted in HPI Comment: All other systems reviewed and negative Constitutional: denies: chills, fever Eyes: denies: eye pain, vision change ENT: denies: ear pain, throat pain Respiratory: cough, shortness of breath, SOB with exertion Cardiovascular: edema. denies: chest pain Gastrointestinal: denies: abdominal pain, vomiting Genitourinary: denies: dysuria, discharge Musculoskeletal: denies: back pain, arthralgia Skin: denies: rash, lesions Neurological: denies: headache, weakness Physical Exam - Physical Exam Vital Signs: Vital Signs 09/05/20 09/05/20 09/05/20 04:12 09:15 09:30 Temperature 98.6 F Pulse Rate 105 H 107 H 101 H Respiratory 22 34 H 19 Rate Blood Pressure 143/97 147/104 Blood Pressure [Right] O2 Sat by Pulse 98 97 Oximetry 09/05/20 10:03 Temperature Pulse Rate 104 H Respiratory 16 Rate Blood Pressure Blood Pressure 143/108 [Right] O2 Sat by Pulse 96 Oximetry Physical Exam: GENERAL: The patient is well-developed well-nourished. HENT: Normocephalic. Atraumatic. Patient has moist mucous membranes. EYES: Extraocular motions are intact. NECK: Supple. Trachea is midline. CHEST/LUNGS: Coarse breath sounds throughout the chest. There is some tachypnea but no accessory muscle use. There is no respiratory distress noted. HEART/CARDIOVASCULAR: Regular. There is no tachycardia. There is no murmur. ABDOMEN: Abdomen is soft, nontender. Patient has normal bowel sounds. SKIN: Skin is warm and dry. 1-2+ pitting edema to the distal bilateral lower extremities. NEURO: The patient is awake, alert, and oriented. The patient is cooperative. The patient has no focal neurologic deficits. Normal speech. MUSCULOSKELETAL: There is no tenderness or deformity. There is no limitation range of motion. ED Course Vital Signs 09/05/20 09/05/20 09/05/20 04:12 09:15 09:30 Temperature 98.6 F Pulse Rate 105 H 107 H 101 H Respiratory 22 34 H 19 Rate Blood Pressure 143/97 147/104 Blood Pressure [Right] O2 Sat by Pulse 98 97 Oximetry 09/05/20 10:03 Temperature Pulse Rate 104 H Respiratory 16 Rate Blood Pressure Blood Pressure 143/108 [Right] O2 Sat by Pulse 96 Oximetry - Reevaluation(s) Reevaluation #1: 09/05/20 18:07 Lab Results 09/05/20 09/05/20 Range/Units 09:40 09:40 WBC 11.8 H (4.5-11.0) K/mm3 RBC 3.95 (3.65-5.03) M/mm3 Hgb 11.2 L (11.8-15.2) gm/dl Hct 33.2 L (35.5-45.6) % MCV 84 (84-94) fl MCH 28 (28-32) pg MCHC 34 (32-34) % RDW 17.2 H (13.2-15.2) % Plt Count 222 (140-440) K/mm3 Lymph % (Auto) 12.3 L (13.4-35.0) % Mckean % (Auto) 10.3 H (0.0-7.3) % Eos % (Auto) 0.5 (0.0-4.3) % Baso % (Auto) 0.4 (0.0-1.8) % Lymph # (Auto) 1.5 (1.2-5.4) K/mm3 Mckean # (Auto) 1.2 H (0.0-0.8) K/mm3 Eos # (Auto) 0.1 (0.0-0.4) K/mm3 Baso # (Auto) 0.0 (0.0-0.1) K/mm3 Seg Neutrophils % 76.5 H (40.0-70.0) % Seg Neutrophils # 9.0 H (1.8-7.7) K/mm3 Sodium 137 (137-145) mmol/L Potassium 4.0 (3.6-5.0) mmol/L Chloride 99.5 (98-107) mmol/L Carbon Dioxide 29 (22-30) mmol/L Anion Gap 13 mmol/L BUN 21 H (9-20) mg/dL Creatinine 0.6 L (0.8-1.3) mg/dL Estimated GFR > 60 ml/min BUN/Creatinine Ratio 35 % Glucose 90 (75-100) mg/dL Calcium 8.4 (8.4-10.2) mg/dL Total Bilirubin 0.80 (0.1-1.2) mg/dL AST 32 (5-40) units/L ALT 30 (7-56) units/L Alkaline Phosphatase 113 (35-129) units/L Troponin T < 0.010 (0.00-0.029) ng/mL NT-Pro-B Natriuret Pep 9809 H (0-900) pg/mL Total Protein 6.8 (6.3-8.2) g/dL Albumin 3.4 L (3.9-5) g/dL Albumin/Globulin Ratio 1.0 % ED Medical Decision Making - Lab Data Result diagrams: 09/05/20 09:40 09/05/20 09:40 - EKG Data -: EKG Interpreted by [facility] EKG shows normal: sinus rhythm (PACs), axis, intervals (Prolonged QTC), QRS complexes, ST-T waves Rate: tachycardia (102 bpm) - EKG Data When compared to previous EKG there are: previous EKG unavailable Interpretation: unchanged when compared t (08/25/20) - Radiology Data Radiology results: report reviewed CHEST 1 VIEW INDICATION / CLINICAL INFORMATION: SOB. COMPARISON: 08/29/2020 FI NDINGS: SUPPORT DEVICES: None. HEART / MEDIASTINUM: No significant abnormality. LUNGS / PLEURA: Bilateral airspace and interstitial disease No pneumothorax. ADDITIONAL FINDINGS: No significant additional findings. IMPRESSION: Diffuse bilateral airspace and interstitial disease has developed since 08/29/2020 - Medical Decision Making This patient presents with a complaint of shortness of breath and lower extremity swelling. The patient was placed in isolation with droplet precautions as he was previously positive for COVID-19 and did not have any negative test upon discharge. He is afebrile. Chest x-ray shows concern for pulmonary edema. Patient has coarse breath sounds and bilateral pitting edema. Patient's labs also appear consistent with CHF. There is a proBNP of almost 10,000 without any renal insufficiency. The patient has been given oxygen supplementation. He has been given IV Lasix for diuresis. The patient will be admitted to the hospital for further evaluation and treatment and was accepted for admission by the hospitalist service. The patient was placed in patient isolation and droplet precautions immediately upon arrival to the main emergency department. I wore full PPE gear including a surgical hat, goggles, N95 mask, surgical mask, gown, and double gloves for every encounter. Critical Care Time: Yes Critical care time in (mins) excluding proc time.: 35 Critical care attestation.: If time is entered above; I have spent that time in minutes in the direct care of this critically ill patient, excluding procedure time. Critical care time was spent on this patient in doing his initial evaluation, multiple reevaluations, ordering and interpretation of labs and imaging, Lasix for diuresis, supplemental oxygen, discussion with the hospitalist service. Critical Care Time: 35 minutes ED Disposition Clinical Impression: COVID-19, Lower extremity edema, Failure of outpatient treatment CHF (congestive heart failure) Qualifiers: Heart failure type: unspecified Heart failure chronicity: acute on chronic Qualified Code(s): I50.9 - Heart failure, unspecified Dyspnea Qualifiers: Dyspnea type: shortness of breath Qualified Code(s): R06.02 - Shortness of breath; R06.00 - Dyspnea, unspecified; R06.01 - Orthopnea Disposition: DC-09 OP ADMIT IP TO THIS HOSP Is pt being admited?: Yes Condition: Serious Time of Disposition: 11:44
--- NOTE | 2020-09-05 11:21 | XRay Report ---
CHEST 1 VIEW INDICATION / CLINICAL INFORMATION: SOB. COMPARISON: 08/29/2020 FINDINGS: SUPPORT DEVICES: None. HEART / MEDIASTINUM: No significant abnormality. LUNGS / PLEURA: Bilateral airspace and interstitial disease No pneumothorax. ADDITIONAL FINDINGS: No significant additional findings. IMPRESSION: Diffuse bilateral airspace and interstitial disease has developed since 08/29/2020 Signer Name: Austin Salmon MD FACR Signed: 09/05/2020 11:20 AM Workstation Name: [id number]
[2020-09-05] MEDS ORDERED: ALBUTEROL 8.5 GM MDI INHALATION IH NR (11:29)
[2020-09-05] MEDS ORDERED: FUROSEMIDE 20 MG/2 ML INJ IV ONE (11:29)
[2020-09-05] MEDS ORDERED: CEFTRIAXONE IV ONE (12:57)
[2020-09-05] MEDS ORDERED: NS IV ONE (12:57)
--- NOTE | 2020-09-05 12:59 | History and Physical Report ---
<BERNY LOPEZ - Last Filed: 09/05/20 15:39> History of Present Illness History of present illness: This is a 64-year-old male with HLD, HTN, asthma, former smoker who presented to the emergency department on 09/05 with complaints of worsening shortness of breath from the swelling for the past 3 days with cough. Patient denies any fever, chills, chest pain, nausea, vomiting, diaphoresis, loss of sense of taste or smell, fatigue, or recent exposure to anybody with COVID-19. Of note patient was recently discharged from the hospital after treatment for COVID-19 pneumonia and had a right-sided thoracentesis done 08/29 where they removed 1 L of fluid. Patient was discharged with Lasix, Eliquis, steroids and zinc with an outpatient follow-up with cardiology which he did not do. Work-up in the emergency departm ent revealed leukocytosis 11.8, received Lasix 20 mg x 1 and is made a COVID-19 PUI. Patient is inflammatory markers are elevated with a D-dimer of greater than 10,000, LDH 247, CRP 3.6 and a procalcitonin of less than 0.05 and his BNP was 9809. Infectious disease and cardiology were consulted. Stat CTA chest and bilateral lower extremity venous Doppler ultrasound ordered. Patient was started on therapeutic Lovenox. Patient will be admitted to the hospitalist service as a COVID-19 PUI and with acute exacerbation of CHF. Advanced care planning conducted in the emergency department. Home medications reconciled and prior visits reviewed. Past History Past Medical History: diabetes, hypertension, hyperlipidemia, other (Asthma) Past Surgical History: No surgical history Social history: single, Lives alone, full code. denies: smoking, alcohol abuse, prescription drug abuse, IV drug use Family history: no significant family history Medications and Allergies Allergies Allergy/AdvReac Type Severity Reaction Status Date / Time No Known Allergies Allergy Unverified 08/25/20 10:28 Home Medications Medication Instructions Recorded Confirmed Last Taken Type Apixaban [Eliquis] 2.5 mg PO BID #60 tablet 08/30/20 09/05/20 Unknown Rx Ascorbic Acid [Vitamin C] 1,000 mg PO BID #60 tablet 08/30/20 09/05/20 Unknown Rx Dexamethasone [Decadron] 6 mg PO DAILY #7 tablet 08/30/20 09/05/20 Unknown Rx Fluticasone/Salmeterol [Advair 1 puff IH BID #1 disk.w.dev 08/30/20 09/05/20 Unknown Rx Diskus 100-50 mcg] Furosemide [Lasix TAB] 40 mg PO QDAY #20 tablet 08/30/20 09/05/20 Unknown Rx Zinc Sulfate 220 mg PO QDAY #30 capsule 08/30/20 09/05/20 Unknown Rx Active Meds: Active Medications Apixaban (Eliquis) 2.5 mg PO BID [facility]; Protocol Stop: 09/17/20 10:01 Ascorbic Acid (Vitamin C) 1,000 mg PO BID [facility] Azithromycin (Zithromax) 500 mg PO QDAY [facility] Stop: 09/09/20 10:01 Ceftriaxone Sodium (Rocephin/Ns 1 Gm/50 Ml) 1 gm in 50 mls @ 100 mls/hr IV Q2 4HR [facility]; Protocol Stop: 09/09/20 10:29 Miscellaneous Medication (Fluticasone/Salmeterol [Advair Diskus 100-50 Mcg]) 1 puff IH BID [facility] Zinc Sulfate (Zinc Sulfate) 220 mg PO QDAY [facility] Review of Systems Constitutional: no weight loss, no weight gain, no fever, no chills, no sweats, no night sweats, no anorexia, no fatigue, no lethargy, no chronic headaches, no poor appetite Ears, nose, mouth and throat: no ear pain, no ear discharge, no tinnitis, no decreased hearing, no nose pain, no nasal congestion, no nasal discharge, no sin us pressure, no sinus pain, no epistaxis, no bleeding gums, no mouth pain, no sore throat Cardiovascular: edema, shortness of breath, high blood pressure, leg edema, no chest pain, no orthopnea, no palpitations, no rapid/irregular heart beat, no syncope, no paroxysmal nocturnal dyspnea Respiratory: cough, pleurisy, pain on inspiration, no cough with sputum, no excessive sputum, no hemoptysis, no shortness of breath, no dyspnea on exertion, no congestion Gastrointestinal: no abdominal pain, no nausea, no vomiting, no diarrhea, no constipation, no hematemesis, no melena, no hematochezia Genitourinary Male: no dysuria, no hematuria, no flank pain, no discharge, no urinary frequency, no urinary hesitancy, no nocturia, no incontinence Rectal: no pain, no incontinence Musculoskeletal: no neck stiffness, no neck pain, no shooting arm pain, no arm numbness/tingling, no low back pain, no shooting leg pain, no leg numbness/tingling, no frequent falls, no fractures, no loss of height Integumentary: no rash, no pruritis, no redness, no sores, no wounds, no jaundice Neurological: no transient paralysis, no paralysis, no weakness, no parathesias, no numbness, no tingling, no seizures, no syncope, no tremors, no headaches Psychiatric: no anxiety, no memory loss, no change in sleep habits, no sleep disturbances, no insomnia, no change in appetite Endocrine: increase in ring/shoe/hat size, no cold intolerance, no heat intolerance, no polyphagia, no excessive thirst, no polydipsia, no polyuria, no nocturia, no flushing, no weight change Hematologic/Lymphatic: no easy bruising, no easy bleeding Allergic/Immunologic: no urticaria, no allergic rhinitis, no persistent infections Exam - Constitutional Vitals: Temp Pulse Resp BP Pulse Ox 98.6 F 104 H 16 143/108 96 09/05/20 04:12 09/05/20 10:03 09/05/20 10:03 09/05/20 10:03 09/05/20 10:03 General appearance: Present: no acute distress - EENT Eyes: Present: PERRL, EOM intact ENT: hearing decreased, poor dentition - Neck Neck: Present: supple, normal ROM - Respiratory Respiratory effort: normal Respiratory: bilateral: diminished - Cardiovascular Rhythm: regular Heart Sounds: Present: S1 & S2. Absent: systolic murmur, diastolic murmur - Extremities Extremities: no ischemia, pulses intact, pulses symmetrical, normal temperature, normal color, Full ROM Extremity abnormal: edema - Peripheral Assessment Bilateral Lower Extremity Edema Type: Pitting Edema Degree: 2+ Capillary Refill: < 3 seconds Skin Temperature: Warm Peripheral Pulses: within normal limits - Abdominal General gastrointestinal: Present: soft, non-tender, non-distended, normal bowel sounds - Integumentary Integumentary: Present: clear, warm, dry - Musculoskeletal Musculoskeletal: strength equal bilaterally - Psychiatric Psychiatric: appropriate mood/affect, cooperative - Neurologic Neurologic: CNII-XII intact, no focal deficits, moves all extremities HEART Score - HEART Score History: Moderately suspicious EKG: Non-specific Age: 45-65 Risk factors: 1-2 risk factors Troponin: Troponin T < 0.010 ng/mL (0.00-0.029) 09/05/20 09:40 Troponin: < normal limit HEART Score: 4 - Critical Actions Critical Actions: 4-6 pts:12-16.6% risk of adverse cardiac event. Should be admitted Results - Labs CBC & Chem 7: 09/05/20 09:40 09/05/20 09:40 Labs: Laboratory Last Values WBC 11.8 K/mm3 (4.5-11.0) H 09/05/20 09:40 RBC 3.95 M/mm3 (3.65-5.03) 09/05/20 09:40 Hgb 11.2 gm/dl (11.8-15.2) L 09/05/20 09:40 Hct 33.2 % (35.5-45.6) L 09/05/20 09:40 MCV 84 fl (84-94) 09/05/20 09:40 MCH 28 pg (28-32) 09/05/20 09:40 MCHC 34 % (32-34) 09/05/20 09:40 RDW 17.2 % (13.2-15.2) H 09/05/20 09:40 Plt Count 222 K/mm3 (140-440) 09/05/20 09:40 Lymph % (Auto) 12.3 % (13.4-35.0) L 09/05/20 09:40 Gordon % (Auto) 10.3 % (0.0-7.3) H 09/05/20 09:40 Eos % (Auto) 0.5 % (0.0-4.3) 09/05/20 09:40 Baso % (Auto) 0.4 % (0.0-1.8) 09/05/20 09:40 Lymph # (Auto) 1.5 K/mm3 (1.2-5.4) 09/05/20 09:40 Gordon # (Auto) 1.2 K/mm3 (0.0-0.8) H 09/05/20 09:40 Eos # (Auto) 0.1 K/mm3 (0.0-0.4) 09/05/20 09:40 Baso # (Auto) 0.0 K/mm3 (0.0-0.1) 09/05/20 09:40 Seg Neutrophils % 76.5 % (40.0-70.0) H 09/05/20 09:40 Seg Neutrophils # 9.0 K/mm3 (1.8-7.7) H 09/05/20 09:40 Sodium 137 mmol/L (137-145) 09/05/20 09:40 Potassium 4.0 mmol/L (3.6-5.0) 09/05/20 09:40 Chloride 99.5 mmol/L (98-107) 09/05/20 09:40 Carbon Dioxide 29 mmol/L (22-30) 09/05/20 09:40 Anion Gap 13 mmol/L 09/05/20 09:40 BUN 21 mg/dL (9-20) H 09/05/20 09:40 Creatinine 0.6 mg/dL (0.8-1.3) L 09/05/20 09:40 Estimated GFR > 60 ml/min 09/05/20 09:40 BUN/Creatinine Ratio 35 % 09/05/20 09:40 Glucose 90 mg/dL (75-100) 09/05/20 09:40 Calcium 8.4 mg/dL (8.4-10.2) 09/05/20 09:40 Total Bilirubin 0.80 mg/dL (0.1-1.2) 09/05/20 09:40 AST 32 units/L (5-40) 09/05/20 09:40 ALT 30 units/L (7-56) 09/05/20 09:40 Alkaline Phosphatase 113 units/L (35-129) 09/05/20 09:40 Troponin T < 0.010 ng/mL (0.00-0.029) 09/05/20 09:40 NT-Pro-B Natriuret Pep 9809 pg/mL (0-900) H 09/05/20 09:40 Total Protein 6.8 g/dL (6.3-8.2) 09/05/20 09:40 Albumin 3.4 g/dL (3.9-5) L 09/05/20 09:40 Albumin/Globulin Ratio 1.0 % 09/05/20 09:40 - Imaging and Cardiology Chest x-ray: report reviewed, image reviewed - Diagnostic Impressions Diagnostic Impressions: 09/05 CXR shows diffuse bilateral airspace and interstitial disease 09/05 venous duplex bilateral lower extremity shows no DVT/SVT Assessment and Plan - Patient Problems (1) Suspected COVID-19 virus infection Current Visit: No Status: Acute Plan to address problem: Patient was recently discharged with COVID-19 pneumonia and he received remdesivir and convalescent plasma Infectious disease consulted 09/05 COVID-19 PCR pending ID initiated patient on dexamethasone for 5 days Contact/droplet isolation Trend COVID-19 inflammatory markers OOB 3 times daily Supplemental oxygen as needed Pulmonary hygiene Anticoagulation per COVID-19 protocol Per ID: Given elevated CRP patient will be on a short course of dexamethasone, no benefit from repeated course of remdesivir and since procalcitonin remains low no antibiotics are needed. (2) Acute hypoxemic respiratory failure Current Visit: No Status: Acute Plan to address problem: Supplemental oxygenation as needed Pulmonary hygiene Dexamethasone for 5 days per ID (3) Elevated d-dimer Current Visit: Yes Status: Acute Plan to address problem: Presented with a D-dimer of greater than 10,000 On discharge patient had a D-dimer of around 3000 Patient was discharged with Eliquis 2.5 twice daily for 30 days Patient started on therapeutic Lovenox while inpatient Trend D-dimer 09/05 bilateral lower extremity venous Doppler ultrasound shows no DVT/SVT 09/05 CTA chest pending (4) CHF (congestive heart failure) Current Visit: Yes Status: Acute Qualifiers: Heart failure chronicity: acute on chronic Plan to address problem: On last admit patient was found to be CHF and was recommended for outpatient cardiology follow-up 08/26 BNP 9809 S/p IV Lasix 20 mg in the ED IV Lasix twice daily given significant bilateral lower extremity edema and shortness of breath Cardiology consulted Supportive care (5) Leukocytosis Current Visit: Yes Status: Acute Plan to address problem: Presented with a WBC of 11.8 Given normal procalcitonin no antibiotics initiated per ID Likely caused by recent steroid therapy Trend CBC (6) Lower extremity edema Current Visit: Yes Status: Acute Plan to address problem: S/p IV Lasix in the ED 09/05 bilateral lower extremity venous Doppler ultrasound negative for DVT or SVT IV Lasix twice daily Elevate while in bed Supportive care (7) Asthma Current Visit: Yes Status: Chronic Plan to address problem: Patient has a history of asthma Restarted on home pulmonary regimen Supplemental oxygen as needed Pulmonary hygiene (8) HLD (hyperlipidemia) Current Visit: Yes Status: Chronic Plan to address problem: Continue home statin therapy (9) HTN (hypertension) Current Visit: Yes Status: Chronic Plan to address problem: Continue home antihypertensive regimen Blood pressure monitoring per protocol Hydralazine as needed for SBP greater than 160 (10) DVT prophylaxis Current Visit: No Status: Acute Plan to address problem: SCD to bilateral lower extremity while in bed Therapeutic anticoagulation with Lovenox given elevated D-dimer (11) Full code status Current Visit: Yes Status: Acute <MARIA T SCHILLING R - Last Filed: 09/05/20 15:42> History of Present Illness Date of examination: 09/05/20 Date of admission: 09/05/20 11:44 Medications and Allergies Active Meds: Active Medications Arformoterol Tartrate (Brovana Nebu) 15 mcg IH Q12HRT [facility] Ascorbic Acid (Vitamin C) 1,000 mg PO BID [facility] Budesonide (Pulmicort) 0.5 mg IH Q12HRT [facility] Dexamethasone (Decadron) 6 mg PO DAILY [facility] Stop: 09/10/20 15:59 Enoxaparin Sodium (Enoxaparin) 80 mg SUB-Q Q12HR [facility] Furosemide (Lasix) 40 mg IV 0600,1800 [facility] Zinc Sulfate (Zinc Sulfate) 220 mg PO QDAY [facility] Exam - Constitutional Vitals: Temp Pulse Resp BP Pulse Ox 98.6 F 104 H 16 143/108 96 09/05/20 04:12 09/05/20 10:03 09/05/20 10:03 09/05/20 10:03 09/05/20 10:03 HEART Score - HEART Score Troponin: Troponin T < 0.010 ng/mL (0.00-0.029) 09/05/20 09:40 Results - Labs CBC & Chem 7: 09/05/20 09:40 09/05/20 09:40 Labs: Laboratory Last Values WBC 11.8 K/mm3 (4.5-11.0) H 09/05/20 09:40 RBC 3.95 M/mm3 (3.65-5.03) 09/05/20 09:40 Hgb 11.2 gm/dl (11.8-15.2) L 09/05/20 09:40 Hct 33.2 % (35.5-45.6) L 09/05/20 09:40 MCV 84 fl (84-94) 09/05/20 09:40 MCH 28 pg (28-32) 09/05/20 09:40 MCHC 34 % (32-34) 09/05/20 09:40 RDW 17.2 % (13.2-15.2) H 09/05/20 09:40 Plt Count 222 K/mm3 (140-440) 09/05/20 09:40 Lymph % (Auto) 12.3 % (13.4-35.0) L 09/05/20 09:40 Gordon % (Auto) 10.3 % (0.0-7.3) H 09/05/20 09:40 Eos % (Auto) 0.5 % (0.0-4.3) 09/05/20 09:40 Baso % (Auto) 0.4 % (0.0-1.8) 09/05/20 09:40 Lymph # (Auto) 1.5 K/mm3 (1.2-5.4) 09/05/20 09:40 Gordon # (Auto) 1.2 K/mm3 (0.0-0.8) H 09/05/20 09:40 Eos # (Auto) 0.1 K/mm3 (0.0-0.4) 09/05/20 09:40 Baso # (Auto) 0.0 K/mm3 (0.0-0.1) 09/05/20 09:40 Seg Neutrophils % 76.5 % (40.0-70.0) H 09/05/20 09:40 Seg Neutrophils # 9.0 K/mm3 (1.8-7.7) H 09/05/20 09:40 D-Dimer > 79721 ng/mlDDU (0-234) H 09/05/20 13:07 Sodium 137 mmol/L (137-145) 09/05/20 09:40 Potassium 4.0 mmol/L (3.6-5.0) 09/05/20 09:40 Chloride 99.5 mmol/L (98-107) 09/05/20 09:40 Carbon Dioxide 29 mmol/L (22-30) 09/05/20 09:40 Anion Gap 13 mmol/L 09/05/20 09:40 BUN 21 mg/dL (9-20) H 09/05/20 09:40 Creatinine 0.6 mg/dL (0.8-1.3) L 09/05/20 09:40 Estimated GFR > 60 ml/min 09/05/20 09:40 BUN/Creatinine Ratio 35 % 09/05/20 09:40 Glucose 90 mg/dL (75-100) 09/05/20 09:40 Calcium 8.4 mg/dL (8.4-10.2) 09/05/20 09:40 Ferritin 107.1 ng/mL (30.0-300.0) 09/05/20 13:07 Total Bilirubin 0.80 mg/dL (0.1-1.2) 09/05/20 09:40 AST 32 units/L (5-40) 09/05/20 09:40 ALT 30 units/L (7-56) 09/05/20 09:40 Alkaline Phosphatase 113 units/L (35-129) 09/05/20 09:40 Lactate Dehydrogenase 247 units/L (91-180) H 09/05/20 13:07 Troponin T < 0.010 ng/mL (0.00-0.029) 09/05/20 09:40 C-Reactive Protein 3.60 mg/dL (0.00-1.30) H 09/05/20 13:07 NT-Pro-B Natriuret Pep 9809 pg/mL (0-900) H 09/05/20 09:40 Total Protein 6.8 g/dL (6.3-8.2) 09/05/20 09:40 Albumin 3.4 g/dL (3.9-5) L 09/05/20 09:40 Albumin/Globulin Ratio 1.0 % 09/05/20 09:40 Procalcitonin < 0.05 ng/mL (<0.15) 09/05/20 13:07 Collins/IV: IV Catheter Type [Left Forearm INT / Saline Lock ] Assessment and Plan Assessment and plan: I saw and evaluated the patient. I agree with the findings and the plan of care as documented in the Nurse Practitioner's~note,
[2020-09-05] MEDS ORDERED: AZITHROMYCIN 250 MG TAB PO SCH (13:00)
[2020-09-05] MEDS ORDERED: cefTRIAXone/NS 1 GM/50 ML 1 GM/50 ML BAG IV SCH (13:00)
[2020-09-05] MEDS ORDERED: cefTRIAXone/NS 1 GM/50 ML 1 GM/50 ML BAG IV ONE (13:05)
[2020-09-05] MEDS ORDERED: AZITHROMYCIN 250 MG TAB ONE (13:05)
[2020-09-05 13:52] LABS: C-Reactive Protein 3.6 mg/dL (0.00-1.30)
--- NOTE | 2020-09-05 15:15 | Consultation ---
History of Present Illness - Reason for Consult Consult date: 09/05/20 COVID-19, recent discharge Requesting physician: BERNY LOPEZ - History of Present Illness The patient is a 64-year-old male who was recently discharged from the hospital with severe Covid pneumonia and CHF exacerbation. He was treated with Solu- Medrol, remdesivir and had been weaned off oxygen prior to discharge on 08/30/2020. He has now been readmitted due to worsening shortness of breath and bilateral leg swelling. Infectious diseases was reconsulted. During his previous admission, patient did have a large right-sided pleural effusion which was drained. Patient is otherwise afebrile. He is currently hypoxic requiring oxygen. Labs show D-dimer >10K, CRP 3.6, BNP 9809, procalcitonin 0.05. Review of Systems: reviewed in the chart, unable to obtain directly due to PPE preservation and minimize risk of transmission Past History Past Medical History: diabetes, hypertension, hyperlipidemia, other (Asthma) Past Surgical History: No surgical history Social history: single, Lives alone, full code. denies: smoking, alcohol abuse, prescription drug abuse, IV drug use Family history: no significant family history Medications and Allergies Allergies Allergy/AdvReac Type Severity Reaction Status Date / Time No Known Allergies Allergy Unverified 08/25/20 10:28 Home Medications Medication Instructions Recorded Confirmed Last Taken Type Apixaban [Eliquis] 2.5 mg PO BID #60 tablet 08/30/20 09/05/20 Unknown Rx Ascorbic Acid [Vitamin C] 1,000 mg PO BID #60 tablet 08/30/20 09/05/20 Unknown Rx Dexamethasone [Decadron] 6 mg PO DAILY #7 tablet 08/30/20 09/05/20 Unknown Rx Fluticasone/Salmeterol [Advair 1 puff IH BID #1 disk.w.dev 08/30/20 09/05/20 Unknown Rx Diskus 100-50 mcg] Furosemide [Lasix TAB] 40 mg PO QDAY #20 tablet 08/30/20 09/05/20 Unknown Rx Zinc Sulfate 220 mg PO QDAY #30 capsule 08/30/20 09/05/20 Unknown Rx Active Meds: Active Medications Apixaban (Eliquis) 2.5 mg PO BID [facility]; Protocol Stop: 09/17/20 10:01 Arformoterol Tartrate (Brovana Nebu) 15 mcg IH Q12HRT [facility] Ascorbic Acid (Vitamin C) 1,000 mg PO BID [facility] Budesonide (Pulmicort) 0.5 mg IH Q12HRT [facility] Furosemide (Lasix) 40 mg IV 0600,1800 [facility] Zinc Sulfate (Zinc Sulfate) 220 mg PO QDAY [facility] Physical Examination - Physical Exam Narrative exam: Physical Exam (reviewed in chart due to PPE conservation and minimize risk of transmission) Constitutional: limited due to PPE conservation strategy Head, Ears, Nose: limited due to PPE conservation strategy Eyes: limited due to PPE conservation strategy Neck: limited due to PPE conservation strategy Oral: limited due to PPE conservation strategy Cardiovascular: limited due to PPE conservation strategy Respiratory: limited due to PPE conservation strategy GI: limited due to PPE conservation strategy Musculoskeletal: limited due to PPE conservation strategy Skin: limited due to PPE conservation strategy Hem/Lymphatic: limited due to PPE conservation strategy Psych: limited due to PPE conservation strategy Neurological: limited due to PPE conservation strategy - Constitutional Vitals: Vital Signs Temp Pulse Resp BP Pulse Ox 98.6 F 104 H 16 143/108 96 09/05/20 04:12 09/05/20 10:03 09/05/20 10:03 09/05/20 10:03 09/05/20 10:03 Temperature -Last 24 Hours Temperature 98.6 F Results - Labs CBC & Chem 7: 09/05/20 09:40 09/05/20 09:40 Labs: Abnormal lab results 09/05/20 09/05/20 09/05/20 Range/Units 09:40 09:40 13:07 WBC 11.8 H (4.5-11.0) K/mm3 Hgb 11.2 L (11.8-15.2) gm/dl Hct 33.2 L (35.5-45.6) % RDW 17.2 H (13.2-15.2) % Lymph % (Auto) 12.3 L (13.4-35.0) % [place] % (Auto) 10.3 H (0.0-7.3) % [place] # (Auto) 1.2 H (0.0-0.8) K/mm3 Seg Neutrophils % 76.5 H (40.0-70.0) % Seg Neutrophils # 9.0 H (1.8-7.7) K/mm3 D-Dimer > 41673 H (0-234) ng/mlDDU BUN 21 H (9-20) mg/dL Creatinine 0.6 L (0.8-1.3) mg/dL Lactate Dehydrogenase (91-180) units/L C-Reactive Protein (0.00-1.30) mg/dL NT-Pro-B Natriuret Pep 9809 H (0-900) pg/mL Albumin 3.4 L (3.9-5) g/dL 09/05/20 Range/Units 13:07 WBC (4.5-11.0) K/mm3 Hgb (11.8-15.2) gm/dl Hct (35.5-45.6) % RDW (13.2-15.2) % Lymph % (Auto) (13.4-35.0) % [place] % (Auto) (0.0-7.3) % [place] # (Auto) (0.0-0.8) K/mm3 Seg Neutrophils % (40.0-70.0) % Seg Neutrophils # (1.8-7.7) K/mm3 D-Dimer (0-234) ng/mlDDU BUN (9-20) mg/dL Creatinine (0.8-1.3) mg/dL Lactate Dehydrogenase 247 H (91-180) units/L C-Reactive Protein 3.60 H (0.00-1.30) mg/dL NT-Pro-B Natriuret Pep (0-900) pg/mL Albumin (3.9-5) g/dL - Imaging and Cardiology Chest x-ray: report reviewed, image reviewed (b/l pneumonia) Assessment and Plan Cultures: SARS CoV2 PCR: Positive during previous admission A/P: 64-year-old male who was recently discharged from the hospital with severe Covid pneumonia and CHF exacerbation. He was treated with Solu-Medrol, remdesivir and had been weaned off oxygen prior to discharge on 08/30/2020. Now re-admitted with: #Bilateral pneumonia: Secondary to COVID-19. Labs show D-dimer >10K, CRP 3.6, BNP 9809, procalcitonin 0.05. #Acute hypoxic respiratory failure: Probably a combination of Covid pneumonia, fluid overload given elevated BNP and also possibility of VTE given significantly elevated D-dimer. #Leukocytosis is likely due to recent steroids Recs: CRP is higher than previous discharge, will do short course of p.o. steroids x 5 days No benefit with another course of remdesivir Consider diuretics given elevated BNP Also evaluate for VTE given significantly elevated D-dimer Anticoagulation per protocol based on D-dimer Procalcitonin remains low, no antibiotics needed. Duane Malloy MD, FACP [facility] ([facility] O: [phone] F: [phone]
--- NOTE | 2020-09-05 15:29 | Vascular Lab Report ---
DUPLEX DOPPLER LOWER EXTREMITY VEINS, BILATERAL INDICATION: r/o dvt. Bilateral leg swelling and pain TECHNIQUE: Duplex doppler imaging was performed through the veins of both lower extremities using venous kaylin gil and other maneuvers. COMPARISON: No relevant prior imaging study available. FINDINGS: Right Common femoral vein: Negative. Right Superficial femoral vein: Negative. Right Popliteal vein: Negative. Right Calf veins: Negative. Left Common femoral vein: Negative. Left Superficial femoral vein: Negative. Left Popliteal vein: Negative. Left Calf veins: Negative. Additional findings: None.. IMPRESSION: 1. No sonographic evidence for DVT in either lower extremity. Signer Name: Pa Palmer MD Signed: 09/05/2020 3:28 PM Workstation Name: [id number]
--- NOTE | 2020-09-05 16:19 | Cat Scan Report ---
CTA CHEST WITH IV CONTRAST INDICATION: Acute onset chest pain with dyspnea TECHNIQUE: Axial CT images were obtained through the chest after injection of 100 mL IV contrast. 3 plane MIP re constructions were produced. All CT scans at this location are performed using CT dose reduction for ALARA by means of automated exposure control. COMPARISON: None available. FINDINGS: PULMONARY ARTERIES: No pulmonary emboli. AORTA AND ARTERIES: There is a ascending thoracic aortic aneurysm within the thoracic aorta measuring about 4.5 cm in diameter. Moderate coronary artery calcification. MEDIASTINUM: The heart is enlarged. No pericardial effusion. There is aneurysm of the ascending thora cic aorta.. LUNGS: Large bilateral pleural effusions with bilateral airspace disease concerning for diffuse inter stitial edema.. ADDITIONAL FINDINGS: None. UPPER ABDOMEN: No acute findings within the limits of the exam is there is significant respiratory mo tion of the upper abdomen.. BONES: No significant osseous abnormality. IMPRESSION: 1. No CT evidence for pulmonary embolism. 2. Cardiomegaly with moderately developed bilateral cardiopulmonary edema and large bilateral pleural effusions. Signer Name: Adam Martínez MD Signed: 09/05/2020 4:18 PM Workstation Name: [id number]
[2020-09-05] MEDS ORDERED: ENALAPRILAT 2.5 MG/2 ML INJ IV PRN (17:30)
[2020-09-05] MEDS ORDERED: dexAMETHasone 4 MG/ML VIAL ONE (18:59)
[2020-09-05] MEDS ORDERED: FUROSEMIDE 40 MG/4 ML INJ ONE (18:59)
[2020-09-05] MEDS ORDERED: DEXAMETHASONE 4 MG TAB ONE (19:04)
[2020-09-05] MEDS: DEXAMETHASONE 4 MG TAB PO SCH (19:12)
[2020-09-05] MEDS: FUROSEMIDE 40 MG/4 ML INJ IV SCH (19:12)
[2020-09-05] MEDS ORDERED: ARFORMOTEROL 15 MCG/2 ML NEBU IH ONE (20:34)
[2020-09-05] MEDS ORDERED: BUDESONIDE 0.5 MG/2 ML NEBU IH ONE (20:34)
[2020-09-05] MEDS: ARFORMOTEROL 15 MCG/2 ML NEBU IH SCH (20:37)
[2020-09-05] MEDS: BUDESONIDE 0.5 MG/2 ML NEBU IH SCH (20:37)
[2020-09-05] MEDS ORDERED: ENOXAPARIN 100 MG/1 ML INJ SUB-Q SCH (22:00)
[2020-09-05] MEDS ORDERED: APIXABAN 2.5 MG TAB PO SCH (22:00)
[2020-09-05] MEDS ORDERED: METOPROLOL TARTRATE 25 MG TAB PO SCH (22:00)
[2020-09-05] MEDS ORDERED: NON-FORMULARY EACH (Fluticasone/Salmeterol [Advair Diskus 100-50 Mcg] 1 PUFF) IH SCH (22:00)
[2020-09-05] MEDS ORDERED: METOPROLOL TARTRATE 25 MG TAB ONE (22:27)
[2020-09-05] MEDS ORDERED: ENOXAPARIN 100 MG/1 ML INJ SUB-Q ONE (22:27)
[2020-09-05] MEDS: ENOXAPARIN 80 MG/0.8 ML INJ SUB-Q SCH (23:06)
[2020-09-05] MEDS: METOPROLOL TARTRATE 25 MG TAB PO SCH (23:06)
[2020-09-05] MEDS: ASCORBIC ACID 500 MG TAB PO SCH (23:14)
--- NOTE | 2020-09-06 03:41 | XRay Report ---
CHEST 1 VIEW 09/06/2020 2:30 AM INDICATION / CLINICAL INFORMATION: eval of pleural effusions. COMPARISON: 09/05/2020 FINDINGS: SUPPORT DEVICES: None. HEART / MEDIASTINUM: Stable. LUNGS / PLEURA: Stable small left pleural effusion. Mildly improved edema. No pneumothorax. ADDITIONAL FINDINGS: No significant additional findings. IMPRESSION: 1. Stable small left pleural effusion. Mildly improved pulmonary edema. Signer Name: Ramos Hopkins MD Signed: 09/06/2020 3:40 AM Workstation Name: [id number]
[2020-09-06] MEDS: FUROSEMIDE 40 MG/4 ML INJ IV SCH ×2 (06:01→17:46)
[2020-09-06 08:21] LABS: Basophils % (Auto) 0.2 % (0.0-1.8); Hematocrit 35.5 % (35.5-45.6); Hemoglobin 11.7 gm/dl (11.8-15.2); Lymphocytes # (Auto) 0.5 K/mm3 (1.2-5.4); Lymphocytes % (Auto) 10.4 % (13.4-35.0); Mean Corpuscular HGB Conc 33 % (32-34); Mean Corpuscular Volume 85 fl (84-94); Monocytes # (Auto) 0.4 K/mm3 (0.0-0.8); Monocytes % (Auto) 7.2 % (0.0-7.3); Platelet Count 245 K/mm3 (140-440); Red Blood Count 4.18 M/mm3 (3.65-5.03); Red Cell Distribution Width 17.5 % (13.2-15.2)
[2020-09-06 08:42] LABS: Blood Urea Nitrogen 23 mg/dL (9-20); Calcium 8.2 mg/dL (8.4-10.2); Hemolysis Index 0
[2020-09-06 08:43] LABS: BUN/Creatinine Ratio 33
[2020-09-06] MEDS: ARFORMOTEROL 15 MCG/2 ML NEBU IH SCH ×2 (09:11→21:00)
[2020-09-06] MEDS: BUDESONIDE 0.5 MG/2 ML NEBU IH SCH ×2 (09:11→21:00)
--- NOTE | 2020-09-06 09:28 | Consultation ---
History of Present Illness - Reason for Consult Consult date: 09/06/20 Thoracic aneurysm - History of Present Illness Patient with a history of mack virus pneumonia, CHF exacerbation who was found to have aneurysmal dilation of his ascending thoracic aorta to 4.7 cm in diameter. Contrast bolus on CT scan is suboptimal for arterial evaluation. Past History Past Medical History: diabetes, hypertension, hyperlipidemia, other (Asthma) Past Surgical History: No surgical history Social history: single, Lives alone, full code. denies: smoking, alcohol abuse, prescription drug abuse, IV drug use Family history: no significant family history Medications and Allergies Allergies Allergy/AdvReac Type Severity Reaction Status Date / Time No Known Allergies Allergy Unverified 08/25/20 10:28 Home Medications Medication Instructions Recorded Confirmed Last Taken Type Apixaban [Eliquis] 2.5 mg PO BID #60 tablet 08/30/20 09/05/20 Unknown Rx Ascorbic Acid [Vitamin C] 1,000 mg PO BID #60 tablet 08/30/20 09/05/20 Unknown Rx Dexamethasone [Decadron] 6 mg PO DAILY #7 tablet 08/30/20 09/05/20 Unknown Rx Fluticasone/Salmeterol [Advair 1 puff IH BID #1 disk.w.dev 08/30/20 09/05/20 Unknown Rx Diskus 100-50 mcg] Furosemide [Lasix TAB] 40 mg PO QDAY #20 tablet 08/30/20 09/05/20 Unknown Rx Zinc Sulfate 220 mg PO QDAY #30 capsule 08/30/20 09/05/20 Unknown Rx Active Meds: Active Medications Arformoterol Tartrate (Brovana Nebu) 15 mcg IH Q12HRT [facility] Last Admin: 09/06/20 09:11 Dose: 15 mcg Documented by: Ascorbic Acid (Vitamin C) 1,000 mg PO BID [facility] Last Admin: 09/05/20 23:14 Dose: 1,000 mg Documented by: Budesonide (Pulmicort) 0.5 mg IH Q12HRT [facility] Last Admin: 09/06/20 09:11 Dose: 0.5 mg Documented by: Dexamethasone (Decadron) 6 mg PO DAILY [facility] Stop: 09/10/20 15:59 Last Admin: 09/05/20 19:12 Dose: 6 mg Documented by: Enalaprilat (Vasotec) 0.625 mg IV Q4HR PRN PRN Reason: Hypertension Enoxaparin Sodium (Enoxaparin) 80 mg SUB-Q Q12HR [facility] Last Admin: 09/05/20 23:06 Dose: 80 mg Documented by: Furosemide (Lasix) 40 mg IV 0600,1800 [facility] Last Admin: 09/06/20 06:01 Dose: 40 mg Documented by: Metoprolol Tartrate (Metoprolol) 25 mg PO BID [facility] Last Admin: 09/05/20 23:06 Dose: 25 mg Documented by: Potassium Chloride (K-Dur) 20 meq PO QDAY [facility] Zinc Sulfate (Zinc Sulfate) 220 mg PO QDAY [facility] Exam - Constitutional Vitals: Temp Pulse Resp BP Pulse Ox 98.0 F 68 18 105/79 96 09/06/20 08:00 09/06/20 09:11 09/06/20 09:11 09/06/20 09:00 09/06/20 09:12 Results - Labs CBC & Chem 7: 09/06/20 06:58 09/06/20 06:58 Labs: Abnormal lab results 09/05/20 09/05/20 09/05/20 Range/Units 09:40 09:40 13:07 WBC 11.8 H (4.5-11.0) K/mm3 Hgb 11.2 L (11.8-15.2) gm/dl Hct 33.2 L (35.5-45.6) % RDW 17.2 H (13.2-15.2) % Lymph % (Auto) 12.3 L (13.4-35.0) % [place] % (Auto) 10.3 H (0.0-7.3) % Lymph # (Auto) (1.2-5.4) K/mm3 [place] # (Auto) 1.2 H (0.0-0.8) K/mm3 Seg Neutrophils % 76.5 H (40.0-70.0) % Seg Neutrophils # 9.0 H (1.8-7.7) K/mm3 D-Dimer > 23404 H (0-234) ng/mlDDU Chloride (98-107) mmol/L Carbon Dioxide (22-30) mmol/L BUN 21 H (9-20) mg/dL Creatinine 0.6 L (0.8-1.3) mg/dL Glucose (75-100) mg/dL Calcium (8.4-10.2) mg/dL Lactate Dehydrogenase (91-180) units/L C-Reactive Protein (0.00-1.30) mg/dL NT-Pro-B Natriuret Pep 9809 H (0-900) pg/mL Albumin 3.4 L (3.9-5) g/dL 09/05/20 09/06/20 09/06/20 Range/Units 13:07 06:58 06:58 WBC (4.5-11.0) K/mm3 Hgb 11.7 L (11.8-15.2) gm/dl Hct (35.5-45.6) % RDW 17.5 H (13.2-15.2) % Lymph % (Auto) 10.4 L (13.4-35.0) % [place] % (Auto) (0.0-7.3) % Lymph # (Auto) 0.5 L (1.2-5.4) K/mm3 [place] # (Auto) (0.0-0.8) K/mm3 Seg Neutrophils % 82.2 H (40.0-70.0) % Seg Neutrophils # (1.8-7.7) K/mm3 D-Dimer (0-234) ng/mlDDU Chloride 96.2 L (98-107) mmol/L Carbon Dioxide 35 H (22-30) mmol/L BUN 23 H (9-20) mg/dL Creatinine 0.7 L (0.8-1.3) mg/dL Glucose 138 H (75-100) mg/dL Calcium 8.2 L (8.4-10.2) mg/dL Lactate Dehydrogenase 247 H (91-180) units/L C-Reactive Protein 3.60 H (0.00-1.30) mg/dL NT-Pro-B Natriuret Pep (0-900) pg/mL Albumin (3.9-5) g/dL - Imaging and Cardiology CT scan - chest: image reviewed Assessment and Plan Patient with a 4.7 cm thoracic aortic aneurysm. Would recommend blood pressure control. The patient is currently with an active COVID-19 infection and pneumonia as well as CHF exacerbation. Following discharge, the patient can follow-up in our office in 2weeks. No interventions recommended at this time.
[2020-09-06] MEDS ORDERED: POTASSIUM CHLORIDE ER 20 MEQ TAB PO SCH (10:00)
[2020-09-06] MEDS: ZINC SULFATE 220 MG CAP PO SCH (10:36)
[2020-09-06] MEDS: DEXAMETHASONE 4 MG TAB PO SCH (10:36)
[2020-09-06] MEDS: METOPROLOL TARTRATE 25 MG TAB PO SCH ×2 (10:36→23:34)
[2020-09-06] MEDS: ASCORBIC ACID 500 MG TAB PO SCH ×2 (10:36→23:35)
[2020-09-06] MEDS: ENOXAPARIN 80 MG/0.8 ML INJ SUB-Q SCH ×2 (10:37→23:33)
--- NOTE | 2020-09-06 10:46 | Progress Note ---
<JOHNBERNY YadiraLorna - Last Filed: 09/06/20 11:08> Assessment and Plan - Patient Problems (1) Suspected COVID-19 virus infection Current Visit: No Status: Acute Plan to address problem: Patient was recently discharged with COVID-19 pneumonia and he received remdesivir and convalescent plasma Infectious disease consulted 09/05 COVID-19 PCR pending ID initiated patient on dexamethasone for 5 days Contact/droplet isolation Trend COVID-19 inflammatory markers OOB 3 times daily Supplemental oxygen as needed Pulmonary hygiene Anticoagulation per COVID-19 protocol Per ID: Given elevated CRP patient will be on a short course of dexamethasone, no benefit from repeated course of remdesivir and since procalcitonin remains low no antibiotics are needed. (2) Acute hypoxemic respiratory failure Current Visit: No Status: Acute Plan to address problem: Supplemental oxygenation as needed Pulmonary hygiene Dexamethasone for 5 days per ID (3) Elevated d-dimer Current Visit: Yes Status: Acute Plan to address problem: Presented with a D-dimer of greater than 10,000 On discharge patient had a D-dimer of around 3000 Patient was discharged with Eliquis 2.5 twice daily for 30 days Patient started on therapeutic Lovenox while inpatient Trend D-dimer 09/05 bilateral lower extremity venous Doppler ultrasound shows no DVT/SVT 09/05 CTA chest shows no acute PE but revealed a 4.5 cm descending thoracic aortic aneurysm (4) Thoracic aortic aneurysm without rupture Current Visit: Yes Status: Acute Plan to address problem: 09/05 CTA chest shows no pulmonary emboli however there is a descending thoracic aortic aneurysm and thoracic aorta measuring about 4.5 cm in diameter with moderate coronary artery calcification on right and bilateral large pleural effusions with bilateral airspace disease concerning for diffuse interstitial edema. Vascular surgery has been consulted Patient has been started on a beta-lonnie and as needed antihypertensive medication Patient was transferred to [facility] for closer blood pressure monitoring (5) CHF (congestive heart failure) Current Visit: Yes Status: Acute Qualifiers: Heart failure type: unspecified Heart failure chronicity: acute on chronic Qualified Code(s): I50.9 - Heart failure, unspecified Plan to address problem: On last admit patient was found to be CHF and was recommended for outpatient c ardiology follow-up 08/26 BNP 9809 S/p IV Lasix 20 mg in the ED IV Lasix twice daily given significant bilateral lower extremity edema and shortness of breath Cardiology consulted Supportive care (6) Leukocytosis Current Visit: Yes Status: Resolved Plan to address problem: Presented with a WBC of 11.8 Given normal procalcitonin no antibiotics initiated per ID Likely caused by recent steroid therapy Trend CBC 09/06 WBC 4.9 (7) Pleural effusion Current Visit: Yes Status: Acute Plan to address problem: Patient was recently discharged from the hospital after treatment for COVID-19 pneumonia and had a right-sided thoracentesis done 08/29 with removal 1 L fluid 09/05 CTA chest showed cardiomegaly with moderate developing bilateral pulmonary emboli with bilateral effusions 09/05 CXR shows diffuse bilateral airspace interstitial disease 09/05 CTA chest completed shows: Cardiomegaly with moderately developed bilateral cardiopulmonary edema and large bilateral pleural effusions 09/06 CXR shows stable small left pleural effusion and mildly improved pulmonary edema Lasix IV twice daily (8) Lower extremity edema Current Visit: Yes Status: Acute Plan to address problem: S/p IV Lasix in the ED 09/05 bilateral lower extremity venous Doppler ultrasound negative for DVT or SVT IV Lasix twice daily Elevate while in bed Supportive care (9) Asthma Current Visit: Yes Status: Chronic Plan to address problem: Patient has a history of asthma Restarted on home pulmonary regimen Supplemental oxygen as needed Pulmonary hygiene (10) HLD (hyperlipidemia) Current Visit: Yes Status: Chronic Plan to address problem: Continue home statin therapy (11) HTN (hypertension) Current Visit: Yes Status: Chronic Plan to address problem: Continue home antihypertensive regimen; initiated on moderate dose beta-lonnie for blood pressure control given thoracic aneurysm Blood pressure monitoring per protocol Hydralazine as needed for SBP greater than 160 As needed Vasotec for systolic blood pressure greater than 130 (12) DVT prophylaxis Current Visit: No Status: Acute Plan to address problem: SCD to bilateral lower extremity while in bed Therapeutic anticoagulation with Lovenox given elevated D-dimer History Interval history: This is a 64-year-old male with HLD, HTN, asthma, former smoker who presented to the emergency department on 09/05 with complaints of worsening shortness of breath from the swelling for the past 3 days with cough. Patient denies any f ever, chills, chest pain, nausea, vomiting, diaphoresis, loss of sense of taste or smell, fatigue, or recent exposure to anybody with COVID-19. Of note patient was recently discharged from the hospital after treatment for COVID-19 pneumonia and had a right-sided thoracentesis done 08/29 where they removed 1 L of fluid. Patient was discharged with Lasix, Eliquis, steroids and zinc with an outpatient follow-up with cardiology which he did not do. Work-up in the emergency department revealed leukocytosis 11.8, received Lasix 20 mg x 1 and is made a COVID-19 PUI. Patient is inflammatory markers are elevated with a D-dimer of greater than 10,000, LDH 247, CRP 3.6 and a procalcitonin of less than 0.05 and his BNP was 9809. Infectious disease and cardiology were consulted. Patient will be admitted to the hospitalist service as a COVID-19 PUI and with acute exacerbation of CHF. At the time my examination patient is complaining of hunger. Patient lower extremity edema is definitely improved. Vascular consult and no surgical intervention needed at this time. They recommended blood pre ssure control and follow-up in the office within 2 weeks of discharge for continued monitoring Case management consulted for social issues as patient states that he does not like insurance for continued care. 09/06: Stat CTA chest shows no pulmonary embolism however shows a thoracic aortic aneurysm and bilateral lower extremity venous Doppler ultrasound shows no DVT/SVT. Patient was started on therapeutic Lovenox. Advanced care planning conducted in the emergency department. Hospitalist Physical - Constitutional Vitals: Temp Pulse Resp BP Pulse Ox 98.0 F 74 18 127/81 96 09/06/20 08:00 09/06/20 10:36 09/06/20 09:11 09/06/20 10:36 09/06/20 09:12 General appearance: Present: no acute distress - EENT Eyes: Present: PERRL ENT: hearing intact, poor dentition - Neck Neck: Present: supple, normal ROM - Respiratory Respiratory effort: normal Respiratory: bilateral: diminished - Cardiovascular Rhythm: regular Heart Sounds: Present: S1 & S2. Absent: systolic murmur, diastolic murmur - Extremities Extremities: no ischemia, pulses intact, pulses symmetrical, normal temperature, normal color, Full ROM Extremity abnormal: edema - Peripheral Assessment Bilateral Lower Extremity Edema Degree: 2+ Capillary Refill: < 3 seconds Skin Temperature: Cool Peripheral Pulses: within normal limits - Abdominal General gastrointestinal: soft, non-tender, non-distended, normal bowel sounds - Integumentary Integumentary: Present: clear, warm, dry - Psychiatric Psychiatric: appropriate mood/affect, cooperative - Neurologic Neurologic: CNII-XII intact, no focal deficits, moves all extremities - Allied Health Allied health notes reviewed: nursing HEART Score - HEART Score EKG: Non-specific Age: 45-65 Risk factors: 1-2 risk factors Troponin: Troponin T < 0.010 ng/mL (0.00-0.029) 09/05/20 09:40 Troponin: < normal limit - Critical Actions Critical Actions: 4-6 pts:12-16.6% risk of adverse cardiac event. Should be admitted Results - Labs CBC & Chem 7: 09/06/20 06:58 09/06/20 06:58 Labs: Laboratory Last Values WBC 4.9 K/mm3 (4.5-11.0) 09/06/20 06:58 RBC 4.18 M/mm3 (3.65-5.03) 09/06/20 06:58 Hgb 11.7 gm/dl (11.8-15.2) L 09/06/20 06:58 Hct 35.5 % (35.5-45.6) 09/06/20 06:58 MCV 85 fl (84-94) 09/06/20 06:58 MCH 28 pg (28-32) 09/06/20 06:58 MCHC 33 % (32-34) 09/06/20 06:58 RDW 17.5 % (13.2-15.2) H 09/06/20 06:58 Plt Count 245 K/mm3 (140-440) 09/06/20 06:58 Lymph % (Auto) 10.4 % (13.4-35.0) L 09/06/20 06:58 [place] % (Auto) 7.2 % (0.0-7.3) 09/06/20 06:58 Eos % (Auto) 0.0 % (0.0-4.3) 09/06/20 06:58 Baso % (Auto) 0.2 % (0.0-1.8) 09/06/20 06:58 Lymph # (Auto) 0.5 K/mm3 (1.2-5.4) L 09/06/20 06:58 [place] # (Auto) 0.4 K/mm3 (0.0-0.8) 09/06/20 06:58 Eos # (Auto) 0.0 K/mm3 (0.0-0.4) 09/06/20 06:58 Baso # (Auto) 0.0 K/mm3 (0.0-0.1) 09/06/20 06:58 Seg Neutrophils % 82.2 % (40.0-70.0) H 09/06/20 06:58 Seg Neutrophils # 4.0 K/mm3 (1.8-7.7) 09/06/20 06:58 D-Dimer > 69605 ng/mlDDU (0-234) H 09/05/20 13:07 Sodium 140 mmol/L (137-145) 09/06/20 06:58 Potassium 3.7 mmol/L (3.6-5.0) 09/06/20 06:58 Chloride 96.2 mmol/L (98-107) L 09/06/20 06:58 Carbon Dioxide 35 mmol/L (22-30) H 09/06/20 06:58 Anion Gap 13 mmol/L 09/06/20 06:58 BUN 23 mg/dL (9-20) H 09/06/20 06:58 Creatinine 0.7 mg/dL (0.8-1.3) L 09/06/20 06:58 Estimated GFR > 60 ml/min 09/06/20 06:58 BUN/Creatinine Ratio 33 % 09/06/20 06:58 Glucose 138 mg/dL (75-100) H 09/06/20 06:58 Calcium 8.2 mg/dL (8.4-10.2) L 09/06/20 06:58 Ferritin 107.1 ng/mL (30.0-300.0) 09/05/20 13:07 Total Bilirubin 0.80 mg/dL (0.1-1.2) 09/05/20 09:40 AST 32 units/L (5-40) 09/05/20 09:40 ALT 30 units/L (7-56) 09/05/20 09:40 Alkaline Phosphatase 113 units/L (35-129) 09/05/20 09:40 Lactate Dehydrogenase 247 units/L (91-180) H 09/05/20 13:07 Troponin T < 0.010 ng/mL (0.00-0.029) 09/05/20 09:40 C-Reactive Protein 3.60 mg/dL (0.00-1.30) H 09/05/20 13:07 NT-Pro-B Natriuret Pep 9809 pg/mL (0-900) H 09/05/20 09:40 Total Protein 6.8 g/dL (6.3-8.2) 09/05/20 09:40 Albumin 3.4 g/dL (3.9-5) L 09/05/20 09:40 Albumin/Globulin Ratio 1.0 % 09/05/20 09:40 Procalcitonin < 0.05 ng/mL (<0.15) 09/05/20 13:07 Collins/IV: Voiding Method Urinal IV Catheter Type [Left Forearm INT / Saline Lock ] Active Medications - Current Medications Current Medications: Generic Name Dose Route Start Last Admin Trade Name Freq PRN Reason Stop Dose Admin Arformoterol Tartrate 15 mcg 09/05/20 20:00 09/06/20 09:11 Brovana Nebu IH 15 mcg Q12HRT SARITA Administration Ascorbic Acid 1,000 mg 09/05/20 22:00 09/06/20 10:36 Vitamin C PO 1,000 mg BID SARITA Administration Budesonide 0.5 mg 09/05/20 20:00 09/06/20 09:11 Pulmicort IH 0.5 mg Q12HRT SARITA Administration Dexamethasone 6 mg 09/05/20 16:00 09/06/20 10:36 Decadron PO 09/10/20 15:59 6 mg DAILY SARITA Administration Enalaprilat 0.625 mg 09/05/20 17:30 Vasotec IV Q4HR PRN Hypertension Enoxaparin Sodium 80 mg 09/05/20 22:00 09/06/20 10:37 Enoxaparin SUB-Q 80 mg Q12HR SARITA Administration Furosemide 40 mg 09/05/20 18:00 09/06/20 06:01 Lasix IV 40 mg 0600,1800 SARITA Administration Metoprolol Tartrate 25 mg 09/05/20 22:00 09/06/20 10:36 Metoprolol PO 25 mg BID SARITA Administration Potassium Chloride 20 meq 09/06/20 10:00 09/06/20 10:36 K-Dur PO 20 meq QDAY SARITA Administration Zinc Sulfate 220 mg 09/06/20 10:00 09/06/20 10:36 Zinc Sulfate PO 220 mg QDAY SARITA Administration <MARIA T SCHILLING R - Last Filed: 09/07/20 08:10> Assessment and Plan Assessment and plan: I saw and evaluated the patient. I agree with the findings and the plan of care as documented in the Nurse Practitioner's~note, with the following corrections and additions. CTA chest showed no PE CoVID test negative cont diuresis change Lovenox dose if clinically stable will transfer to tele follow up 2d echo Hospitalist Physical - Constitutional Vitals: Temp Pulse Resp BP Pulse Ox 98.8 F 68 19 101/67 99 09/07/20 04:00 09/07/20 06:00 09/07/20 06:00 09/07/20 06:00 09/07/20 06:00 HEART Score - HEART Score Troponin: Troponin T < 0.010 ng/mL (0.00-0.029) 09/05/20 09:40 Results - Labs CBC & Chem 7: 09/06/20 06:58 09/06/20 06:58 Labs: Laboratory Last Values WBC 4.9 K/mm3 (4.5-11.0) 09/06/20 06:58 RBC 4.18 M/mm3 (3.65-5.03) 09/06/20 06:58 Hgb 11.7 gm/dl (11.8-15.2) L 09/06/20 06:58 Hct 35.5 % (35.5-45.6) 09/06/20 06:58 MCV 85 fl (84-94) 09/06/20 06:58 MCH 28 pg (28-32) 09/06/20 06:58 MCHC 33 % (32-34) 09/06/20 06:58 RDW 17.5 % (13.2-15.2) H 09/06/20 06:58 Plt Count 245 K/mm3 (140-440) 09/06/20 06:58 Lymph % (Auto) 10.4 % (13.4-35.0) L 09/06/20 06:58 [place] % (Auto) 7.2 % (0.0-7.3) 09/06/20 06:58 Eos % (Auto) 0.0 % (0.0-4.3) 09/06/20 06:58 Baso % (Auto) 0.2 % (0.0-1.8) 09/06/20 06:58 Lymph # (Auto) 0.5 K/mm3 (1.2-5.4) L 09/06/20 06:58 [place] # (Auto) 0.4 K/mm3 (0.0-0.8) 09/06/20 06:58 Eos # (Auto) 0.0 K/mm3 (0.0-0.4) 09/06/20 06:58 Baso # (Auto) 0.0 K/mm3 (0.0-0.1) 09/06/20 06:58 Seg Neutrophils % 82.2 % (40.0-70.0) H 09/06/20 06:58 Seg Neutrophils # 4.0 K/mm3 (1.8-7.7) 09/06/20 06:58 D-Dimer 197.06 ng/mlDDU (0-234) 09/07/20 05:28 Sodium 140 mmol/L (137-145) 09/06/20 06:58 Potassium 3.7 mmol/L (3.6-5.0) 09/06/20 06:58 Chloride 96.2 mmol/L (98-107) L 09/06/20 06:58 Carbon Dioxide 35 mmol/L (22-30) H 09/06/20 06:58 Anion Gap 13 mmol/L 09/06/20 06:58 BUN 23 mg/dL (9-20) H 09/06/20 06:58 Creatinine 0.7 mg/dL (0.8-1.3) L 09/06/20 06:58 Estimated GFR > 60 ml/min 09/06/20 06:58 BUN/Creatinine Ratio 33 % 09/06/20 06:58 Glucose 138 mg/dL (75-100) H 09/06/20 06:58 Calcium 8.2 mg/dL (8.4-10.2) L 09/06/20 06:58 Ferritin 103.4 ng/mL (30.0-300.0) 09/07/20 05:28 Total Bilirubin 0.80 mg/dL (0.1-1.2) 09/05/20 09:40 AST 32 units/L (5-40) 09/05/20 09:40 ALT 30 units/L (7-56) 09/05/20 09:40 Alkaline Phosphatase 113 units/L (35-129) 09/05/20 09:40 Lactate Dehydrogenase 205 units/L (91-180) H 09/07/20 05:28 Troponin T < 0.010 ng/mL (0.00-0.029) 09/05/20 09:40 C-Reactive Protein 3.20 mg/dL (0.00-1.30) H 09/07/20 05:28 NT-Pro-B Natriuret Pep 9809 pg/mL (0-900) H 09/05/20 09:40 Total Protein 6.8 g/dL (6.3-8.2) 09/05/20 09:40 Albumin 3.4 g/dL (3.9-5) L 09/05/20 09:40 Albumin/Globulin Ratio 1.0 % 09/05/20 09:40 Procalcitonin < 0.05 ng/mL (<0.15) 09/05/20 13:07 Coronavirus (PCR) Negative (Negative) 09/06/20 Unknown Collins/IV: Voiding Method Urinal IV Catheter Type [Left Forearm INT / Saline Lock ] Active Medications - Current Medications Current Medications: Generic Name Dose Route Start Last Admin Trade Name Freq PRN Reason Stop Dose Admin Arformoterol Tartrate 15 mcg 09/05/20 20:00 09/06/20 21:00 Brovana Nebu IH 15 mcg Q12HRT SARITA Administration Ascorbic Acid 1,000 mg 09/05/20 22:00 09/06/20 23:35 Vitamin C PO 1,000 mg BID SARITA Administration Budesonide 0.5 mg 09/05/20 20:00 09/06/20 21:00 Pulmicort IH 0.5 mg Q12HRT SARITA Administration Dexamethasone 6 mg 09/05/20 16:00 09/06/20 10:36 Decadron PO 09/10/20 15:59 6 mg DAILY SARITA Administration Enalaprilat 0.625 mg 09/05/20 17:30 Vasotec IV Q4HR PRN Hypertension Enoxaparin Sodium 40 mg 09/07/20 22:00 Enoxaparin SUB-Q QDAY@2200 SARITA Protocol Furosemide 40 mg 09/05/20 18:00 09/07/20 05:15 Lasix IV 40 mg 0600,1800 SARITA Administration Metoprolol Tartrate 25 mg 09/05/20 22:00 09/06/20 23:34 Metoprolol PO 25 mg BID SARITA Administration Potassium Chloride 20 meq 09/06/20 10:00 09/06/20 10:36 K-Dur PO 20 meq QDAY SARITA Administration Zinc Sulfate 220 mg 09/06/20 10:00 09/06/20 10:36 Zinc Sulfate PO 220 mg QDAY SARITA Administration Nutrition/Malnutrition Assess - Dietary Evaluation Nutrition/Malnutrition Findings: Nutrition Notes Start: 09/06/20 14:25 Freq: Status: Active Protocol: Document 09/06/20 14:25 AL (Rec: 09/06/20 14:45 AL [id number]) Co-Sign 09/06/20 14:25 LP Nutrition Notes Need for Assessment 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 Patient does not have recorded A1c% in chart. RN reports that patient is consuming 100% of meals and would benefit from double portions. Unable to reach patient x2 via telephone. Nutrition Intervention Follow-Up By: 09/07/20 Additional Comments F/U for assessment
--- NOTE | 2020-09-06 11:53 | Progress Note ---
Assessment and Plan Cultures: SARS CoV2 PCR: Positive during previous admission A/P: 64-year-old male who was recently discharged from the hospital with severe Covid pneumonia and CHF exacerbation. He was treated with Solu-Medrol, remdesivir and had been weaned off oxygen prior to discharge on 08/30/2020. Now re-admitted with: #Bilateral pneumonia: Secondary to COVID-19. Labs show D-dimer >10K, CRP 3.6, BNP 9809, procalcitonin 0.05. #Acute hypoxic respiratory failure: Probably a combination of Covid pneumonia, fluid overload given elevated BNP. VTE eval negative for PE and DVT. Large b ilateral pleural effusions #Leukocytosis is likely due to recent steroids Recs: continue short course of p.o. steroids x 5 days, D2 continue supportive care and diuretics per primary team Duane Malloy MD, FACP [facility] ([facility] O: [phone] F: [phone] Subjective Date of service: 09/06/20 Interval history: No fever. Stable on 2 lit by NC. Objective - Exam Narrative Exam: Physical Exam (reviewed in chart due to PPE conservation and minimize risk of transmission) Constitutional: limited due to PPE conservation strategy Head, Ears, Nose: limited due to PPE conservation strategy Eyes: limited due to PPE conservation strategy Neck: limited due to PPE conservation strategy Oral: limited due to PPE conservation strategy Cardiovascular: limited due to PPE conservation strategy Respiratory: limited due to PPE conservation strategy GI: limited due to PPE conservation strategy Musculoskeletal: limited due to PPE conservation strategy Skin: limited due to PPE conservation strategy Hem/Lymphatic: limited due to PPE conservation strategy Psych: limited due to PPE conservation strategy Neurological: limited due to PPE conservation strategy - Constitutional Vitals: Vital Signs Temp Pulse Resp BP Pulse Ox 98.0 F 74 18 127/81 96 09/06/20 08:00 09/06/20 10:36 09/06/20 09:11 09/06/20 10:36 09/06/20 09:12 Temperature -Last 24 Hours Temperature 98.0 F Temperature 98.1 F - Labs CBC & Chem 7: 09/06/20 06:58 09/06/20 06:58 Labs: Abnormal lab results 09/05/20 09/05/20 09/06/20 Range/Units 13:07 13:07 06:58 Hgb (11.8-15.2) gm/dl RDW (13.2-15.2) % Lymph % (Auto) (13.4-35.0) % Lymph # (Auto) (1.2-5.4) K/mm3 Seg Neutrophils % (40.0-70.0) % D-Dimer > 96978 H (0-234) ng/mlDDU Chloride 96.2 L (98-107) mmol/L Carbon Dioxide 35 H (22-30) mmol/L BUN 23 H (9-20) mg/dL Creatinine 0.7 L (0.8-1.3) mg/dL Glucose 138 H (75-100) mg/dL Calcium 8.2 L (8.4-10.2) mg/dL Lactate Dehydrogenase 247 H (91-180) units/L C-Reactive Protein 3.60 H (0.00-1.30) mg/dL 09/06/20 Range/Units 06:58 Hgb 11.7 L (11.8-15.2) gm/dl RDW 17.5 H (13.2-15.2) % Lymph % (Auto) 10.4 L (13.4-35.0) % Lymph # (Auto) 0.5 L (1.2-5.4) K/mm3 Seg Neutrophils % 82.2 H (40.0-70.0) % D-Dimer (0-234) ng/mlDDU Chloride (98-107) mmol/L Carbon Dioxide (22-30) mmol/L BUN (9-20) mg/dL Creatinine (0.8-1.3) mg/dL Glucose (75-100) mg/dL Calcium (8.4-10.2) mg/dL Lactate Dehydrogenase (91-180) units/L C-Reactive Protein (0.00-1.30) mg/dL
--- NOTE | 2020-09-06 12:01 | Consultation ---
History of Present Illness Consult date: 09/06/20 Consult reason: congestive heart failure History of present illness: This is a 64-year old male who was recently admitted to this hospital with COVID 19 viral pneumonia and right pleural effusion status post thoracentesis with 1000cc of fluid aspirated. On discharge he was prescribed low dose Eliquis but indication is unclear. He returns with shortness of breath, acute respiratory failure chest x-ray concern for interstitial edema versus pneumonia. Currently on isolation protocol. COVID 19 test result is pending. Chest CTA showed no evidence of pulmonary embolism. 12-lead ECG reveals sinus rhythm. No acute ST or T wave changes. Past History Past Medical History: diabetes, hypertension, hyperlipidemia, other (Asthma) Past Surgical History: No surgical history Social history: single, Lives alone, full code. denies: smoking, alcohol abuse, prescription drug abuse, IV drug use Family history: no significant family history Medications and Allergies Allergies Allergy/AdvReac Type Severity Reaction Status Date / Time No Known Allergies Allergy Unverified 08/25/20 10:28 Home Medications Medication Instructions Recorded Confirmed Last Taken Type Apixaban [Eliquis] 2.5 mg PO BID #60 tablet 08/30/20 09/05/20 Unknown Rx Ascorbic Acid [Vitamin C] 1,000 mg PO BID #60 tablet 08/30/20 09/05/20 Unknown Rx Dexamethasone [Decadron] 6 mg PO DAILY #7 tablet 08/30/20 09/05/20 Unknown Rx Fluticasone/Salmeterol [Advair 1 puff IH BID #1 disk.w.dev 08/30/20 09/05/20 Unknown Rx Diskus 100-50 mcg] Furosemide [Lasix TAB] 40 mg PO QDAY #20 tablet 08/30/20 09/05/20 Unknown Rx Zinc Sulfate 220 mg PO QDAY #30 capsule 08/30/20 09/05/20 Unknown Rx Active Meds: Active Medications Arformoterol Tartrate (Brovana Nebu) 15 mcg IH Q12HRT [facility] Last Admin: 09/06/20 09:11 Dose: 15 mcg Documented by: Ascorbic Acid (Vitamin C) 1,000 mg PO BID [facility] Last Admin: 09/06/20 10:36 Dose: 1,000 mg Documented by: Budesonide (Pulmicort) 0.5 mg IH Q12HRT [facility] Last Admin: 09/06/20 09:11 Dose: 0.5 mg Documented by: Dexamethasone (Decadron) 6 mg PO DAILY [facility] Stop: 09/10/20 15:59 Last Admin: 09/06/20 10:36 Dose: 6 mg Documented by: Enalaprilat (Vasotec) 0.625 mg IV Q4HR PRN PRN Reason: Hypertension Enoxaparin Sodium (Enoxaparin) 80 mg SUB-Q Q12HR [facility] Last Admin: 09/06/20 10:37 Dose: 80 mg Documented by: Furosemide (Lasix) 40 mg IV 0600,1800 [facility] Last Admin: 09/06/20 06:01 Dose: 40 mg Documented by: Metoprolol Tartrate (Metoprolol) 25 mg PO BID [facility] Last Admin: 09/06/20 10:36 Dose: 25 mg Documented by: Potassium Chloride (K-Dur) 20 meq PO QDAY [facility] Last Admin: 09/06/20 10:36 Dose: 20 meq Documented by: Zinc Sulfate (Zinc Sulfate) 220 mg PO QDAY [facility] Last Admin: 09/06/20 10:36 Dose: 220 mg Documented by: Physical Examination Vital Signs Temp Pulse Resp BP Pulse Ox 98.6 F 105 H 22 143/97 98 09/05/20 04:12 09/05/20 04:12 09/05/20 04:12 09/05/20 04:12 09/05/20 04:12 Narrative exam: deferred due to isolation protocol. Results 09/06/20 06:58 09/06/20 06:58 Cardiac Enzymes 09/05/20 Range/Units 13:07 Lactate Dehydrogenase 247 H (91-180) units/L CBC 09/06/20 Range/Units 06:58 WBC 4.9 (4.5-11.0) K/mm3 RBC 4.18 (3.65-5.03) M/mm3 Hgb 11.7 L (11.8-15.2) gm/dl Hct 35.5 (35.5-45.6) % Plt Count 245 (140-440) K/mm3 Lymph # (Auto) 0.5 L (1.2-5.4) K/mm3 [place] # (Auto) 0.4 (0.0-0.8) K/mm3 Eos # (Auto) 0.0 (0.0-0.4) K/mm3 Baso # (Auto) 0.0 (0.0-0.1) K/mm3 Comprehensive Metabolic Panel 09/06/20 Range/Units 06:58 Sodium 140 (137-145) mmol/L Potassium 3.7 (3.6-5.0) mmol/L Chloride 96.2 L (98-107) mmol/L Carbon Dioxide 35 H (22-30) mmol/L BUN 23 H (9-20) mg/dL Creatinine 0.7 L (0.8-1.3) mg/dL Glucose 138 H (75-100) mg/dL Calcium 8.2 L (8.4-10.2) mg/dL Assessment and Plan - Patient Problems (1) Acute hypoxemic respiratory failure Current Visit: No Status: Acute Plan to address problem: Currently on isolation protocol. COVID 19 test result is pending. Chest CTA showed no evidence of pulmonary embolism. Will obtain an echocardiogram is COVID test is negative.
[2020-09-07] MEDS: FUROSEMIDE 40 MG/4 ML INJ IV SCH (05:15)
[2020-09-07 06:21] LABS: C-Reactive Protein 3.2 mg/dL (0.00-1.30)
[2020-09-07] MEDS: BUDESONIDE 0.5 MG/2 ML NEBU IH SCH (09:04)
[2020-09-07] MEDS: ARFORMOTEROL 15 MCG/2 ML NEBU IH SCH (09:05)
--- NOTE | 2020-09-07 10:09 | History and Physical Report ---
History of Present Illness Date of admission: 09/05/20 11:44 History of present illness: This is a 64-year-old male with HLD, HTN, asthma, former smoker who presented to the emergency department on 09/05 with complaints of worsening shortness of breath from the swelling for the past 3 days with cough. Patient denies any fever, chills, chest pain, nausea, vomiting, diaphoresis, loss of sense of taste or smell, fatigue, or recent exposure to anybody with COVID-19. Of note patient was recently discharged from the hospital after treatment for COVID-19 pneumonia and had a right-sided thoracentesis done 08/29 where they removed 1 L of fluid. Patient was discharged with Lasix, Eliquis, steroids and zinc with an outpatient follow-up with cardiology which he did not do. Work-up in the emergency department revealed leukocytosis 11.8, received Lasix 20 mg x 1 and is made a COVID-19 PUI. Patient is inflammatory markers are elevated with a D-dimer of greater than 10,000, LDH 247, CRP 3.6 and a procalcitonin of less than 0.05 and his BNP was 9809. Infectious disease, cardiology and vascular surgery were consulted. 09/06: COVID-19 PCR negative, cardiology is agreed to proceed with echocardiogram. Patient remains in the IMCU. Vascular surgery was consulted who recommends no surgical intervention at this time. Past History Past Medical History: diabetes, hypertension, hyperlipidemia, other (Asthma) Past Surgical History: No surgical history Social history: single, Lives alone, full code. denies: smoking, alcohol abuse, prescription drug abuse, IV drug use Family history: no significant family history Medications and Allergies Allergies Allergy/AdvReac Type Severity Reaction Status Date / Time No Known Allergies Allergy Unverified 08/25/20 10:28 Home Medications Medication Instructions Recorded Confirmed Last Taken Type Apixaban [Eliquis] 2.5 mg PO BID #60 tablet 08/30/20 09/05/20 Unknown Rx Ascorbic Acid [Vitamin C] 1,000 mg PO BID #60 tablet 08/30/20 09/05/20 Unknown Rx Dexamethasone [Decadron] 6 mg PO DAILY #7 tablet 08/30/20 09/05/20 Unknown Rx Fluticasone/Salmeterol [Advair 1 puff IH BID #1 disk.w.dev 08/30/20 09/05/20 Unknown Rx Diskus 100-50 mcg] Furosemide [Lasix TAB] 40 mg PO QDAY #20 tablet 08/30/20 09/05/20 Unknown Rx Zinc Sulfate 220 mg PO QDAY #30 capsule 08/30/20 09/05/20 Unknown Rx Active Meds: Active Medications Arformoterol Tartrate (Brovana Nebu) 15 mcg IH Q12HRT [facility] Last Admin: 09/07/20 09:05 Dose: 15 mcg Documented by: Ascorbic Acid (Vitamin C) 1,000 mg PO BID [facility] Last Admin: 09/06/20 23:35 Dose: 1,000 mg Documented by: Budesonide (Pulmicort) 0.5 mg IH Q12HRT [facility] Last Admin: 09/07/20 09:04 Dose: 0.5 mg Documented by: Dexamethasone (Decadron) 6 mg PO DAILY [facility] Stop: 09/10/20 15:59 Last Admin: 09/06/20 10:36 Dose: 6 mg Documented by: Enalaprilat (Vasotec) 0.625 mg IV Q4HR PRN PRN Reason: Hypertension Enoxaparin Sodium (Enoxaparin) 40 mg SUB-Q QDAY@2200 [facility]; Protocol Furosemide (Lasix) 40 mg IV 0600,1800 [facility] Last Admin: 09/07/20 05:15 Dose: 40 mg Documented by: Metoprolol Tartrate (Metoprolol) 25 mg PO BID [facility] Last Admin: 09/06/20 23:34 Dose: 25 mg Documented by: Zinc Sulfate (Zinc Sulfate) 220 mg PO QDAY [facility] Last Admin: 09/06/20 10:36 Dose: 220 mg Documented by: Exam - Constitutional Vitals: Temp Pulse Resp BP Pulse Ox 97.3 F L 68 20 111/77 99 09/07/20 08:00 09/07/20 09:22 09/07/20 09:22 09/07/20 09:01 09/07/20 09:05 HEART Score - HEART Score EKG: Non-specific Age: 45-65 Risk factors: 1-2 risk factors Troponin: Troponin T < 0.010 ng/mL (0.00-0.029) 09/05/20 09:40 Troponin: < normal limit - Critical Actions Critical Actions: 4-6 pts:12-16.6% risk of adverse cardiac event. Should be admitted Results - Labs CBC & Chem 7: 09/06/20 06:58 09/06/20 06:58 Labs: Laboratory Last Values WBC 4.9 K/mm3 (4.5-11.0) 09/06/20 06:58 RBC 4.18 M/mm3 (3.65-5.03) 09/06/20 06:58 Hgb 11.7 gm/dl (11.8-15.2) L 09/06/20 06:58 Hct 35.5 % (35.5-45.6) 09/06/20 06:58 MCV 85 fl (84-94) 09/06/20 06:58 MCH 28 pg (28-32) 09/06/20 06:58 MCHC 33 % (32-34) 09/06/20 06:58 RDW 17.5 % (13.2-15.2) H 09/06/20 06:58 Plt Count 245 K/mm3 (140-440) 09/06/20 06:58 Lymph % (Auto) 10.4 % (13.4-35.0) L 09/06/20 06:58 [place] % (Auto) 7.2 % (0.0-7.3) 09/06/20 06:58 Eos % (Auto) 0.0 % (0.0-4.3) 09/06/20 06:58 Baso % (Auto) 0.2 % (0.0-1.8) 09/06/20 06:58 Lymph # (Auto) 0.5 K/mm3 (1.2-5.4) L 09/06/20 06:58 [place] # (Auto) 0.4 K/mm3 (0.0-0.8) 09/06/20 06:58 Eos # (Auto) 0.0 K/mm3 (0.0-0.4) 09/06/20 06:58 Baso # (Auto) 0.0 K/mm3 (0.0-0.1) 09/06/20 06:58 Seg Neutrophils % 82.2 % (40.0-70.0) H 09/06/20 06:58 Seg Neutrophils # 4.0 K/mm3 (1.8-7.7) 09/06/20 06:58 D-Dimer 197.06 ng/mlDDU (0-234) 09/07/20 05:28 Sodium 140 mmol/L (137-145) 09/06/20 06:58 Potassium 3.7 mmol/L (3.6-5.0) 09/06/20 06:58 Chloride 96.2 mmol/L (98-107) L 09/06/20 06:58 Carbon Dioxide 35 mmol/L (22-30) H 09/06/20 06:58 Anion Gap 13 mmol/L 09/06/20 06:58 BUN 23 mg/dL (9-20) H 09/06/20 06:58 Creatinine 0.7 mg/dL (0.8-1.3) L 09/06/20 06:58 Estimated GFR > 60 ml/min 09/06/20 06:58 BUN/Creatinine Ratio 33 % 09/06/20 06:58 Glucose 138 mg/dL (75-100) H 09/06/20 06:58 Calcium 8.2 mg/dL (8.4-10.2) L 09/06/20 06:58 Ferritin 103.4 ng/mL (30.0-300.0) 09/07/20 05:28 Total Bilirubin 0.80 mg/dL (0.1-1.2) 09/05/20 09:40 AST 32 units/L (5-40) 09/05/20 09:40 ALT 30 units/L (7-56) 09/05/20 09:40 Alkaline Phosphatase 113 units/L (35-129) 09/05/20 09:40 Lactate Dehydrogenase 205 units/L (91-180) H 09/07/20 05:28 Troponin T < 0.010 ng/mL (0.00-0.029) 09/05/20 09:40 C-Reactive Protein 3.20 mg/dL (0.00-1.30) H 09/07/20 05:28 NT-Pro-B Natriuret Pep 9809 pg/mL (0-900) H 09/05/20 09:40 Total Protein 6.8 g/dL (6.3-8.2) 09/05/20 09:40 Albumin 3.4 g/dL (3.9-5) L 09/05/20 09:40 Albumin/Globulin Ratio 1.0 % 09/05/20 09:40 Procalcitonin < 0.05 ng/mL (<0.15) 09/05/20 13:07 Coronavirus (PCR) Negative (Negative) 09/06/20 Unknown Collins/IV: Voiding Method Urinal IV Catheter Type [Left Forearm INT / Saline Lock ] Assessment and Plan - Patient Problems (1) Suspected COVID-19 virus infection Current Visit: No Status: Acute (2) Acute hypoxemic respiratory failure Current Visit: No Status: Acute (3) Elevated d-dimer Current Visit: Yes Status: Acute (4) Thoracic aortic aneurysm without rupture Current Visit: Yes Status: Acute (5) CHF (congestive heart failure) Current Visit: Yes Status: Acute Qualifiers: Heart failure type: unspecified Heart failure chronicity: acute on chronic Qualified Code(s): I50.9 - Heart failure, unspecified (6) Leukocytosis Current Visit: Yes Status: Resolved (7) Pleural effusion Current Visit: Yes Status: Acute (8) Lower extremity edema Current Visit: Yes Status: Acute (9) Asthma Current Visit: Yes Status: Chronic (10) HLD (hyperlipidemia) Current Visit: Yes Status: Chronic (11) HTN (hypertension) Current Visit: Yes Status: Chronic (12) DVT prophylaxis Current Visit: No Status: Acute
--- NOTE | 2020-09-07 10:15 | Progress Note ---
Assessment and Plan - Patient Problems (1) Suspected COVID-19 virus infection Current Visit: No Status: Ruled-out Plan to address problem: Patient was recently discharged with COVID-19 pneumonia and he received remdesivir and convalescent plasma Infectious disease consulted 09/05 COVID-19 PCR negative ID initiated patient on dexamethasone for 5 days Contact/droplet isolation discontinued Trend COVID-19 inflammatory markers OOB 3 times daily Supplemental oxygen as needed Pulmonary hygiene Anticoagulation per COVID-19 protocol Per ID: Given elevated CRP patient will be on a short course of dexamethasone, no benefit from repeated course of remdesivir and since procalcitonin remains low no antibiotics are needed. (2) Acute hypoxemic respiratory failure Current Visit: No Status: Acute Plan to address problem: Supplemental oxygenation as needed Pulmonary hygiene Dexamethasone for 5 days per ID (3) Elevated d-dimer Current Visit: Yes Status: Acute Plan to address problem: Presented with a D-dimer of greater than 10,000 On discharge patient had a D-dimer of around 3000 Patient was discharged with Eliquis 2.5 twice daily for 30 days Patient started on therapeutic Lovenox while inpatient Trend D-dimer 09/05 bilateral lower extremity venous Doppler ultrasound shows no DVT/SVT 09/05 CTA chest shows no acute PE but revealed a 4.5 cm descending thoracic aortic aneurysm (4) Thoracic aortic aneurysm without rupture Current Visit: Yes Status: Acute Plan to address problem: 09/05 CTA chest shows no pulmonary emboli however there is a descending thoracic aortic aneurysm and thoracic aorta measuring about 4.5 cm in diameter with moderate coronary artery calcification on right and bilateral large pleural effusions with bilateral airspace disease concerning for diffuse interstitial edema. Vascular surgery has been consulted Patient has been started on a beta-lonnie and as needed antihypertensive medication Patient was transferred to [facility] for closer blood pressure monitoring 09/07 transfer to [facility] (5) CHF (congestive heart failure) Current Visit: Yes Status: Acute Qualifiers: Heart failure type: unspecified Heart failure chronicity: acute on chronic Qualified Code(s): I50.9 - Heart failure, unspecified Plan to address problem: On last admit patient was found to be CHF and was recommended for outpatient cardiology follow-up 08/26 BNP 9809 S/p IV Lasix 20 mg in the ED IV Lasix twice daily given significant bilateral lower extremity edema and shortness of breath which was changed to home p.o. 40 mg Lasix on 09/07 Cardiology consulted Supportive care 09/06 IVETH pending (6) Pleural effusion Current Visit: Yes Status: Acute Plan to address problem: Patient was recently discharged from the hospital after treatment for COVID-19 pneumonia and had a right-sided thoracentesis done 08/29 with removal 1 L fluid 09/05 CTA chest showed cardiomegaly with NO pulmonary emboli with bilateral effusions 09/05 CXR shows diffuse bilateral airspace interstitial disease 09/05 CTA chest completed shows: Cardiomegaly with moderately developed bilateral cardiopulmonary edema and large bilateral pleural effusions 09/06 CXR shows stable small left pleural effusion and mildly improved pulmon madi edema Lasix IV twice daily, changed to p.o. Lasix 40 mg per home medication list on 09/07 (7) Lower extremity edema Current Visit: Yes Status: Resolved Plan to address problem: S/p IV Lasix in the ED 09/05 bilateral lower extremity venous Doppler ultrasound negative for DVT or SVT IV Lasix twice daily now changed to p.o. Lasix on 09/07 Elevate while in bed Supportive care (8) Asthma Current Visit: Yes Status: Chronic Plan to address problem: Patient has a history of asthma Restarted on home pulmonary regimen Supplemental oxygen as needed Pulmonary hygiene (9) HLD (hyperlipidemia) Current Visit: Yes Status: Chronic Plan to address problem: Continue home statin therapy (10) HTN (hypertension) Current Visit: Yes Status: Chronic Plan to address problem: Continue home antihypertensive regimen; initiated on moderate dose beta-lonnie for blood pressure control given thoracic aneurysm Blood pressure monitoring per protocol Hydralazine as needed for SBP greater than 160 As needed Vasotec for systolic blood pressure greater than 130 (11) DVT prophylaxis Current Visit: No Status: Acute Plan to address problem: SCD to bilateral lower extremity while in bed Therapeutic anticoagulation with Lovenox given elevated D-dimer History Interval history: This is a 64-year-old male with HLD, HTN, asthma, former smoker who presented to the emergency department on 09/05 with complaints of worsening shortness of breath from the swelling for the past 3 days with cough. Patient denies any fever, chills, chest pain, nausea, vomiting, diaphoresis, loss of sense of taste or smell, fatigue, or recent exposure to anybody with COVID-19. Of note patient was recently discharged from the hospital after treatment for COVID-19 pneumonia and had a right-sided thoracentesis done 08/29 where they removed 1 L of fluid. Patient was discharged with Lasix, Eliquis, steroids and zinc with an outpatient follow-up with cardiology which he did not do. Work-up in the emergency department revealed leukocytosis 11.8, received Lasix 20 mg x 1 and is made a COVID-19 PUI. Patient is inflammatory markers are elevated with a D-dimer of greater than 10,000, LDH 247, CRP 3.6 and a procalcitonin of less than 0.05 and his BNP was 9809. Infectious disease and cardiology were consulted. Patient will be admitted to the hospitalist service as a COVID-19 PUI and with acute exacerbation of CHF. Cardiology has agreed to proceed with echocardiogram for COVID-19 status. Patient will be transferred out of the IMCU today to the to the medical surgical floor. Patient has nonpitting edema to bilateral extremities on exam. Consider resuming patient on home p.o. Lasix and stopping IV twice daily. 09/06: Stat CTA chest shows no pulmonary embolism however shows a thoracic aortic aneurysm and bilateral lower extremity venous Doppler ultrasound shows no DVT/SVT. Patient was started on therapeutic Lovenox. Case management consulted with Dr. Newton bilateral lower extremity edema. Vascular consult completed which recommended no surgical intervention at this time and recommended blood pressure control with follow-up in the office within 2 weeks of discharge. COVID-19 PCR negative Hospitalist Physical - Constitutional Vitals: Temp Pulse Resp BP Pulse Ox 97.3 F L 68 20 111/77 99 09/07/20 08:00 09/07/20 09:22 09/07/20 09:22 09/07/20 09:01 09/07/20 09:05 General appearance: Present: no acute distress - EENT Eyes: Present: PERRL, EOM intact ENT: hearing decreased, poor dentition - Neck Neck: Present: supple, normal ROM - Respiratory Respiratory effort: normal Respiratory: bilateral: diminished (Bilateral bases) - Cardiovascular Rhythm: regular Heart Sounds: Present: S1 & S2. Absent: systolic murmur, diastolic murmur - Extremities Extremities: no ischemia, pulses intact, pulses symmetrical, normal temperature, normal color, Full ROM Extremity abnormal: edema - Peripheral Assessment Bilateral Lower Extremity Edema Type: Non-pitting Capillary Refill: < 3 seconds Skin Temperature: Warm Peripheral Pulses: within normal limits - Abdominal General gastrointestinal: soft, non-tender, non-distended, normal bowel sounds - Integumentary Integumentary: Present: clear, warm, dry - Psychiatric Psychiatric: appropriate mood/affect, cooperative - Neurologic Neurologic: CNII-XII intact, no focal deficits, moves all extremities - Allied Health Allied health notes reviewed: nursing HEART Score - HEART Score EKG: Non-specific Age: 45-65 Risk factors: 1-2 risk factors Troponin: Troponin T < 0.010 ng/mL (0.00-0.029) 09/05/20 09:40 Troponin: < normal limit - Critical Actions Critical Actions: 4-6 pts:12-16.6% risk of adverse cardiac event. Should be admitted Results - Labs CBC & Chem 7: 09/06/20 06:58 09/06/20 06:58 Labs: Laboratory Last Values WBC 4.9 K/mm3 (4.5-11.0) 09/06/20 06:58 RBC 4.18 M/mm3 (3.65-5.03) 09/06/20 06:58 Hgb 11.7 gm/dl (11.8-15.2) L 09/06/20 06:58 Hct 35.5 % (35.5-45.6) 09/06/20 06:58 MCV 85 fl (84-94) 09/06/20 06:58 MCH 28 pg (28-32) 09/06/20 06:58 MCHC 33 % (32-34) 09/06/20 06:58 RDW 17.5 % (13.2-15.2) H 09/06/20 06:58 Plt Count 245 K/mm3 (140-440) 09/06/20 06:58 Lymph % (Auto) 10.4 % (13.4-35.0) L 09/06/20 06:58 [place] % (Auto) 7.2 % (0.0-7.3) 09/06/20 06:58 Eos % (Auto) 0.0 % (0.0-4.3) 09/06/20 06:58 Baso % (Auto) 0.2 % (0.0-1.8) 09/06/20 06:58 Lymph # (Auto) 0.5 K/mm3 (1.2-5.4) L 09/06/20 06:58 Will # (Auto) 0.4 K/mm3 (0.0-0.8) 09/06/20 06:58 Eos # (Auto) 0.0 K/mm3 (0.0-0.4) 09/06/20 06:58 Baso # (Auto) 0.0 K/mm3 (0.0-0.1) 09/06/20 06:58 Seg Neutrophils % 82.2 % (40.0-70.0) H 09/06/20 06:58 Seg Neutrophils # 4.0 K/mm3 (1.8-7.7) 09/06/20 06:58 D-Dimer 197.06 ng/mlDDU (0-234) 09/07/20 05:28 Sodium 140 mmol/L (137-145) 09/06/20 06:58 Potassium 3.7 mmol/L (3.6-5.0) 09/06/20 06:58 Chloride 96.2 mmol/L (98-107) L 09/06/20 06:58 Carbon Dioxide 35 mmol/L (22-30) H 09/06/20 06:58 Anion Gap 13 mmol/L 09/06/20 06:58 BUN 23 mg/dL (9-20) H 09/06/20 06:58 Creatinine 0.7 mg/dL (0.8-1.3) L 09/06/20 06:58 Estimated GFR > 60 ml/min 09/06/20 06:58 BUN/Creatinine Ratio 33 % 09/06/20 06:58 Glucose 138 mg/dL (75-100) H 09/06/20 06:58 Calcium 8.2 mg/dL (8.4-10.2) L 09/06/20 06:58 Ferritin 103.4 ng/mL (30.0-300.0) 09/07/20 05:28 Total Bilirubin 0.80 mg/dL (0.1-1.2) 09/05/20 09:40 AST 32 units/L (5-40) 09/05/20 09:40 ALT 30 units/L (7-56) 09/05/20 09:40 Alkaline Phosphatase 113 units/L (35-129) 09/05/20 09:40 Lactate Dehydrogenase 205 units/L (91-180) H 09/07/20 05:28 Troponin T < 0.010 ng/mL (0.00-0.029) 09/05/20 09:40 C-Reactive Protein 3.20 mg/dL (0.00-1.30) H 09/07/20 05:28 NT-Pro-B Natriuret Pep 9809 pg/mL (0-900) H 09/05/20 09:40 Total Protein 6.8 g/dL (6.3-8.2) 09/05/20 09:40 Albumin 3.4 g/dL (3.9-5) L 09/05/20 09:40 Albumin/Globulin Ratio 1.0 % 09/05/20 09:40 Procalcitonin < 0.05 ng/mL (<0.15) 09/05/20 13:07 Coronavirus (PCR) Negative (Negative) 09/06/20 Unknown Collins/IV: Voiding Method Urinal IV Catheter Type [Left Forearm INT / Saline Lock ] Active Medications - Current Medications Current Medications: Generic Name Dose Route Start Last Admin Trade Name Freq PRN Reason Stop Dose Admin Arformoterol Tartrate 15 mcg 09/05/20 20:00 09/07/20 09:05 Brovana Nebu IH 15 mcg Q12HRT SARITA Administration Ascorbic Acid 1,000 mg 09/05/20 22:00 09/06/20 23:35 Vitamin C PO 1,000 mg BID SARITA Administration Budesonide 0.5 mg 09/05/20 20:00 09/07/20 09:04 Pulmicort IH 0.5 mg Q12HRT SARITA Administration Dexamethasone 6 mg 09/05/20 16:00 09/06/20 10:36 Decadron PO 09/10/20 15:59 6 mg DAILY SARITA Administration Enalaprilat 0.625 mg 09/05/20 17:30 Vasotec IV Q4HR PRN Hypertension Enoxaparin Sodium 40 mg 09/07/20 22:00 Enoxaparin SUB-Q QDAY@2200 [facility] Protocol Furosemide 40 mg 09/05/20 18:00 09/07/20 05:15 Lasix IV 40 mg 0600,1800 SARITA Administration Metoprolol Tartrate 25 mg 09/05/20 22:00 09/06/20 23:34 Metoprolol PO 25 mg BID SARITA Administration Zinc Sulfate 220 mg 09/06/20 10:00 09/06/20 10:36 Zinc Sulfate PO 220 mg QDAY SARITA Administration Nutrition/Malnutrition Assess - Dietary Evaluation Nutrition/Malnutrition Findings: Nutrition Notes Start: 09/06/20 14: 25 Freq: Status: Active Protocol: Document 09/06/20 14:25 AL (Rec: 09/06/20 14:45 AL [id number]) Co-Sign 09/06/20 14:25 LP Nutrition Notes Need for Assessment generated from: MD Order,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 Patient does not have recorded A1c% in chart. RN reports that patient is consuming 100% of meals and would benefit from double portions. Unable to reach patient x2 via telephone. Nutrition Intervention Follow-Up By: 09/07/20 Additional Comments F/U for assessment
[2020-09-07] MEDS: ZINC SULFATE 220 MG CAP PO SCH (10:51)
[2020-09-07] MEDS: ASCORBIC ACID 500 MG TAB PO SCH (10:51)
[2020-09-07] MEDS: METOPROLOL TARTRATE 25 MG TAB PO SCH (10:51)
[2020-09-07] MEDS: DEXAMETHASONE 4 MG TAB PO SCH (10:51)
--- NOTE | 2020-09-07 12:12 | Progress Note ---
Assessment and Plan Cultures: SARS CoV2 PCR: Positive during previous admission A/P: 64-year-old male who was recently discharged from the hospital with severe Covid pneumonia and CHF exacerbation. He was treated with Solu-Medrol, remdesivir and had been weaned off oxygen prior to discharge on 08/30/2020. Now re-admitted with: #Recent COVID-19. Labs show D-dimer >10K, CRP 3.6, BNP 9809, procalcitonin 0.05. Repeat #Acute hypoxic respiratory failure: Probably a combination of Covid pneumonia, fluid overload given elevated BNP. VTE eval negative for PE and DVT. Large bilateral pleural effusions #Leukocytosis is likely due to recent steroids Recs: continue short course of p.o. steroids x 5 days, D3 strangely repeat d-dimer is completely normal. VTE eval negative continue supportive care and diuretics per primary team/cardiology Will sign off. Please call with questions Duane Malloy MD, FACP [facility] ([facility] O: [phone] F: [phone] Subjective Date of service: 09/07/20 Interval history: No fever. Weaned to room air Objective - Exam Narrative Exam: Physical Exam (reviewed in chart due to PPE conservation and minimize risk of transmission) Constitutional: limited due to PPE conservation strategy Head, Ears, Nose: limited due to PPE conservation strategy Eyes: limited due to PPE conservation strategy Neck: limited due to PPE conservation strategy Oral: limited due to PPE conservation strategy Cardiovascular: limited due to PPE conservation strategy Respiratory: limited due to PPE conservation strategy GI: limited due to PPE conservation strategy Musculoskeletal: limited due to PPE conservation strategy Skin: limited due to PPE conservation strategy Hem/Lymphatic: limited due to PPE conservation strategy Psych: limited due to PPE conservation strategy Neurological: limited due to PPE conservation strategy - Constitutional Vitals: Vital Signs Temp Pulse Resp BP Pulse Ox 97.3 F L 70 19 127/72 100 09/07/20 08:00 09/07/20 10:51 09/07/20 10:01 09/07/20 10:51 09/07/20 10:01 Temperature -Last 24 Hours Temperature 97.3 F Temperature 98.8 F Temperature 98.9 F Temperature 97.5 F Temperature 97.5 F - Labs CBC & Chem 7: 09/06/20 06:58 09/06/20 06:58 Labs: Abnormal lab results 09/07/20 Range/Units 05:28 Lactate Dehydrogenase 205 H (91-180) units/L C-Reactive Protein 3.20 H (0.00-1.30) mg/dL
--- NOTE | 2020-09-07 12:56 | Progress Note ---
Assessment and Plan - Patient Problems (1) Shortness of breath Current Visit: Yes Status: Acute Plan to address problem: Patient presented with shortness of breath and chest x-ray shows bilateral pneumonia, and small bilateral pleural effusions. Echocardiogram shows normal left ventricular systolic function, presentation not likely consistent with cardiogenic pulmonary edema. We will follow as indicated. Subjective Date of service: 09/07/20 Interval history: Patient is comfortable, no acute respiratory distress. Echocardiogram at the bedside is ongoing, preliminary results showed normal left ventricular systolic function. Objective Vital Signs Temp Pulse Pulse Pulse Resp Resp BP 09/07/20 10:51 70 127/72 09/07/20 10:01 70 19 125/72 09/07/20 09:22 68 20 09/07/20 09:05 09/07/20 09:01 76 17 111/77 09/07/20 08:00 97.3 F L 70 16 111/77 09/07/20 07:00 62 16 117/81 09/07/20 06:00 68 19 101/67 09/07/20 05:01 76 28 H 116/77 09/07/20 04:00 98.8 F 61 93 H 14 97/65 09/07/20 03:00 64 14 103/73 09/07/20 02:00 62 17 112/78 09/07/20 01:00 63 14 107/68 09/07/20 00:00 64 65 13 107/68 09/06/20 23:34 69 125/80 09/06/20 23:16 98.9 F 09/06/20 23:00 109/71 09/06/20 22:00 109/71 09/06/20 21:01 09/06/20 21:00 82 24 113/77 09/06/20 20:00 97.5 F L 75 78 80 20 18 106/73 09/06/20 19:52 86 24 106/73 09/06/20 19:00 70 53 H 106/73 09/06/20 18:00 83 21 119/84 09/06/20 17:00 68 17 119/84 09/06/20 16:00 97.5 F L 83 16 124/85 09/06/20 15:00 76 19 113/86 09/06/20 14:00 70 21 108/76 09/06/20 13:00 79 15 122/83 Pulse Ox 09/07/20 10:51 09/07/20 10:01 100 09/07/20 09:22 09/07/20 09:05 99 09/07/20 09:01 100 09/07/20 08:00 99 09/07/20 07:00 100 09/07/20 06:00 99 09/07/20 05:01 98 09/07/20 04:00 100 09/07/20 03:00 97 09/07/20 02:00 09/07/20 01:00 100 09/07/20 00:00 100 09/06/20 23:34 09/06/20 23:16 09/06/20 23:00 100 09/06/20 22:00 99 09/06/20 21:01 100 09/06/20 21:00 100 09/06/20 20:00 100 09/06/20 19:52 99 09/06/20 19:00 98 09/06/20 18:00 99 09/06/20 17:00 100 09/06/20 16:00 100 09/06/20 15:00 100 09/06/20 14:00 96 09/06/20 13:00 100 - Physical Examination General: No Apparent Distress HEENT: Positive: PERRL Neck: Positive: neck supple Cardiac: Positive: Reg Rate and Rhythm Lungs: Positive: Decreased Breath Sounds Neuro: Positive: Grossly Intact Abdomen: Positive: Soft Skin: Positive: Clear Extremities: Absent: edema - Labs and Meds Cardiac Enzymes 09/07/20 Range/Units 05:28 Lactate Dehydrogenase 205 H (91-180) units/L
--- NOTE | 2020-09-07 13:31 | Discharge Summary ---
Providers - Providers Date of Admission: 09/05/20 11:44 Date of discharge: 09/07/20 Attending physician: MARIA T SCHILLING 09/05/20 12:42 Consult to Physician [CONS] Routine Comment: Consulting Provider: SATHISH AMARO Physician Instructions: Reason For Exam: chf 09/05/20 12:48 Consult to Physician [CONS] Routine Comment: Consulting Provider: YEYO VITAL Physician Instructions: Reason For Exam: covid 09/05/20 17:24 Consult to Physician [CONS] Routine Comment: Consulting Provider: CARY LOONEY Physician Instructions: Reason For Exam: ascending thoracic aortic aneurysm 09/06/20 10:44 Consult to Case Management [CONS] Routine Services Needed at Discharge: Printer Apprentice Notified:: Nel Phone number called:: yes Was contact made?: Yes If yes, spoke with:: yes Time called:: 09:36 Primary care physician: HAND CROWN POUNCER Hospitalization Condition: Serious Hospital course: This is a 64-year-old male with HLD, HTN, asthma, former smoker who presented to the emergency department on 09/05 with complaints of worsening shortness of breath from the swelling for the past 3 days with cough. Of note patient was recently discharged from the hospital after treatment for COVID-19 pneumonia and had a right-sided thoracentesis done 08/29 where they removed 1 L of fluid. Patient was discharged with Lasix, Eliquis, steroids and zinc with an outpatient follow-up with cardiology which he did not do. Work-up in the emergency department revealed leukocytosis 11.8, received Lasix 20 mg x 1 and is made a COVID-19 PUI. Patient is inflammatory markers are elevated with a D-dimer of greater than 10,000, LDH 247, CRP 3.6 and a procalcitonin of less than 0.05 and his BNP was 9809. Infectious disease and cardiology were consulted. His repeat COVID test was negative. Stat CTA chest shows no pulmonary embolism however shows a thoracic aortic aneurysm and bilateral lower extremity venous Doppler ultrasound shows no DVT/SVT. Vascular consult completed and recommended no surgical intervention at this time and recommended blood pressure control with follow-up in the office within 2 weeks of discharge. 2d echo showed Ef 45% with Courtney valve prolapse and sig MR. Cardiology recommended medical optimization and further f/u for definitive treatment. Discharge diagnosis: --h/o COVID-19 virus infection - Treated recently during prior admission 09/05 COVID-19 PCR negative ID initiated patient on dexamethasone for 5 days -- Acute hypoxemic respiratory failure due to h/o COVID PNA and CHF exacerbation with MR Supplemental oxygenation as needed Dexamethasone for 5 days per ID - s/p iv diuresis, outpt f/u with cardiology -- Elevated d-dimer, resolved 09/05 bilateral lower extremity venous Doppler ultrasound shows no DVT/SVT 09/05 CTA chest shows no acute PE but revealed a 4.5 cm descending thoracic aortic aneurysm -- Thoracic aortic aneurysm without rupture 09/05 CTA chest shows there is a descending thoracic aortic aneurysm and thoracic aorta measuring about 4.5 cm in diameter with moderate coronary artery calcification on right and bilateral large pleural effusions with bilateral airspace disease concerning for diffuse interstitial edema. Vascular surgery has been consulted -recommended proper BP control and outpt f/u Patient has been started on a beta-lonnie and as needed antihypertensive medication Patient was transferred to [facility] for closer blood pressure monitoring 09/07 transfer to [facility] [place] --Acute systolic CHF (congestive heart failure) exacerbation On last admit patient was found to be CHF and was recommended for outpatient cardiology follow-up 08/26 BNP 9809 S/p IV Lasix 20 mg twice daily given significant bilateral lower extremity edema and shortness of breath which was changed to home p.o. 40 mg Lasix on 09/07 Cardiology consulted, TTE showed Ef 45% need further outpt f/u -- Pleural effusion - due to CHF exacerbation Patient was recently discharged from the hospital after treatment for COVID-19 pneumonia and had a right-sided thoracentesis done 08/29 with removal 1 L fluid 09/05 CTA chest showed cardiomegaly with NO pulmonary emboli with bilateral effusions 09/05 CXR shows diffuse bilateral airspace interstitial disease 09/05 CTA chest completed shows: Cardiomegaly with moderately developed bilateral cardiopulmonary edema and large bilateral pleural effusions 09/06 CXR shows stable small left pleural effusion and mildly improved pulmonary edema Lasix IV twice daily, changed to p.o. Lasix 40 mg per home medication list on 11/07 --Mitral valve regurgitation -Echocardiogram showed prolapse of the posterior mitral leaflet with severe MR. In addition, the LA is dilated. There is mild LV dilatation but the systolic function appears relatively well preserved, EF ~45%. - cardiology recommended optimal diuretics, afterload agents, and further cardiac evaluation of his mitral valve disease after the pneumonia is optimally treated. -- Asthma, chronic Patient has a history of asthma Restarted on home pulmonary regimen Supplemental oxygen as needed Pulmonary hygiene -- HLD (hyperlipidemia) Continue home statin therapy -- HTN (hypertension) Continue home antihypertensive regimen; initiated on moderate dose beta-lonnie for blood pressure control given thoracic aneurysm -- DVT prophylaxis SCD to bilateral lower extremity while in bed s/p Therapeutic anticoagulation with Lovenox given elevated D-dimer Disposition: DC/TX-06 HOME UNDER HOME HL[facility] Time spent for discharge: 34 minutes Core Measure Documentation - Palliative Care Palliative Care/ Comfort Measures: Not Applicable - Core Measures Any of the following diagnoses?: heart failure - Heart Failure Discharge Requirements TAMANNA/ARB for LVSD if EF <40%: Yes Beta lonnie at discharge: Yes Exam - Constitutional Vitals: Temp Pulse Resp BP Pulse Ox 98.0 F 66 14 100/68 99 09/07/20 12:00 09/07/20 12:00 09/07/20 12:00 09/07/20 12:00 09/07/20 12:00 Plan Activity: advance as tolerated Weight Bearing Status: Non-Weight Bearing Diet: low fat, low salt Special Instructions: no heavy lifting, home health RN Additional Instructions: f/u with wine manager in one week for heart failure and mitral valve prolapse. f/u with vascular surgeon for thoracic artery aneurysm in two weeks. Follow up with: PRIMARY CARE, [Primary Care Provider] - 7 Days Prescriptions: Metoprolol [Lopressor TAB] 25 mg PO BID #60 tablet lisinopriL [Zestril TAB] 10 mg PO QDAY #30 tablet
[2020-09-07 13:54] VITALS: BP 132/78
[2020-09-07] MEDS ORDERED: POTASSIUM CHLORIDE ER 20 MEQ TAB PO SCH (14:00)
[2020-09-07] MEDS ORDERED: LISINOPRIL 10 MG TAB PO SCH (14:00)
[2020-09-07] MEDS ORDERED: INSULIN REGULAR, HUMAN 100 UNIT/ML 3ML VIAL SUB-Q SCH (16:30)
[2020-09-07] MEDS ORDERED: ENOXAPARIN 40 MG/0.4 ML INJ SUB-Q SCH (22:00)
[2020-09-08] MEDS ORDERED: FUROSEMIDE 40 MG TAB PO SCH (10:00)
== END 2020-09-07 14:40 | disposition home or self-care (01) | DRG 291 ==
LOC: ED 02:34 → 3A 11:44 → IMCU 19:43
PROVIDERS: ADMIT Internal Medicine; ATTEND Internal Medicine
DX: I11.0 Hypertensive heart disease with heart failure (principal); J96.01 Acute respiratory failure with hypoxia; J90 Pleural effusion, not elsewhere classified; I50.23 Acute on chronic systolic (congestive) heart failure; J45.909 Unspecified asthma, uncomplicated; Z87.891 Personal history of nicotine dependence; E11.9 Type 2 diabetes mellitus without complications; E78.5 Hyperlipidemia, unspecified; D72.829 Elevated white blood cell count, unspecified; I71.2 Thoracic aortic aneurysm, without rupture; I34.0 Nonrheumatic mitral (valve) insufficiency; R79.1 Abnormal coagulation profile; Z20.828 Contact with and (suspected) exposure to other viral communicable diseases
CPT/HCPCS: 36415; 71045; 71275; 80048; 80053; 82728; 83615; 83880; 84145; 84484; 85025; 85379; 86140; 87116; 93005; 93306; 93970; 94640; 94760; G0378; J0696; J1100; J1650; J1815; J1940; J8540; Q9967; U0003

== ENCOUNTER 2022-01-08 19:23 | Inpatient (IN) | payer SELFPAY ==
[2022-01-08 20:51] LABS: Basophils % (Auto) 0.6 % (0.0-1.8); Eosinophils # (Auto) 0.1 K/mm3 (0.0-0.4); Eosinophils % (Auto) 0.9 % (0.0-4.3); Hematocrit 35.4 % (35.5-45.6); Hemoglobin 11.1 gm/dl (11.8-15.2); Lymphocytes # (Auto) 0.7 K/mm3 (1.2-5.4); Lymphocytes % (Auto) 9.5 % (13.4-35.0); Mean Corpuscular HGB Conc 31 % (32-34); Mean Corpuscular Volume 77 fl (84-94); Monocytes # (Auto) 0.8 K/mm3 (0.0-0.8); Monocytes % (Auto) 11.7 % (0.0-7.3); Platelet Count 207 K/mm3 (140-440); Red Blood Count 4.61 M/mm3 (3.65-5.03)
[2022-01-08 20:53] LABS: Red Cell Distribution Width 23.6 % (13.2-15.2)
--- NOTE | 2022-01-08 21:06 | XRay Report ---
XR chest routine 2V INDICATION / CLINICAL INFORMATION: chest pain. COMPARISON: 09/06/2020 FINDINGS: SUPPORT DEVICES: None. HEART /PULMONARY VASCULATURE: There is cardiac enlargement. Pulmonary vasculature is mildly congested . LUNGS / PLEURA: There are perihilar and left greater than right bibasilar airspace opacities. No siza ble pleural effusion. No pneumothorax. ADDITIONAL FINDINGS: No significant additional findings. IMPRESSION: Perihilar and bibasilar airspace opacities, likely reflecting pulmonary edema in the setting of CHF. Signer Name: Lisandro Pham MD Signed: 01/08/2022 9:02 PM Workstation Name: [id number]
[2022-01-08 21:31] LABS: Alanine Aminotransferase 14 units/L (7-56); Albumin 3.1 g/dL (3.9-5); Blood Urea Nitrogen 15 mg/dL (9-20); Calcium 8.1 mg/dL (8.4-10.2); Hemolysis Index 12
[2022-01-08 21:36] LABS: BUN/Creatinine Ratio 21
[2022-01-08] MEDS ORDERED: IPRATROPIUM 0.02% NEBU 2.5 ML IH ONE (23:08)
[2022-01-08] MEDS ORDERED: ALBUTEROL 2.5 MG/3 ML NEBU IH ONE (23:08)
[2022-01-08] MEDS ORDERED: FUROSEMIDE 40 MG/4 ML INJ IV ONE (23:08)
[2022-01-08 23:51] LABS: INR 1.05 (0.87-1.13)
[2022-01-09] LABS: Creatine Kinase MB 3.1 ng/mL (0.0-4.0)
[2022-01-09 00:30] LABS: Mucus,Urine FEW /HPF
[2022-01-09 00:40] LABS: Color,Urine Dark Yellow (Yellow)
[2022-01-09 00:41] LABS: Bilirubin,Urine Negative (Negative); Blood,Urine Trace (Negative); Urobilinogen,Urine < 2.0 mg/dL (<2.0)
--- NOTE | 2022-01-09 02:12 | Emergency Department Report ---
ED Chest Pain HPI - General Chief Complaint: Chest Pain Stated Complaint: CHEST PAIN Time Seen by Provider: 01/08/22 23:04 Source: EMS Mode of arrival: Ambulatory Limitations: Language Barrier - History of Present Illness Initial Comments: BIB EMS Patient c/o CP and SOB x few hours. Aspirin 324 and 0.4 Nitro given in field. Patient with PMhx of stroke and htn Complaint: chest pain -: Gradual, hour(s) Onset: during rest Pain Location: substernal Pain Radiation: none Quality: heaviness Improves With: nothing - Related Data Previous Rx's Medication Instructions Recorded Last Taken Type Ascorbic Acid [Vitamin C] 1,000 mg PO BID #60 tablet 08/30/20 Unknown Rx Fluticasone/Salmeterol [Advair 1 puff IH BID #1 disk.w.dev 08/30/20 Unknown Rx Diskus 100-50 mcg] Zinc Sulfate 220 mg PO QDAY #30 capsule 08/30/20 Unknown Rx Dexamethasone [Decadron] 6 mg PO DAILY #2 tablet 09/07/20 Unknown Rx Furosemide [Lasix TAB] 40 mg PO QDAY #60 tablet 09/07/20 Unknown Rx Metoprolol [Lopressor TAB] 25 mg PO BID #60 tablet 09/07/20 Unknown Rx lisinopriL [Zestril TAB] 10 mg PO QDAY #30 tablet 09/07/20 Unknown Rx Allergies Allergy/AdvReac Type Severity Reaction Status Date / Time No Known Allergies Allergy Unverified 08/25/20 10:28 Heart Score - HEART Score History: Slightly suspicious EKG: Non-specific Age: > 65 Risk factors: 1-2 risk factors Troponin: < normal limit HEART Score: 4 - EKG Read Time Time EKG Completed: 02:11 EKG Read Time: 02:11 - Critical Actions Critical Actions: 4-6 pts:12-16.6% risk of adverse cardiac event. Should be admitted ED Review of Systems ROS: Stated complaint: CHEST PAIN Other details as noted in HPI Constitutional: denies: chills, fever Eyes: denies: eye pain, eye discharge, vision change ENT: denies: ear pain, throat pain Respiratory: denies: cough, shortness of breath, wheezing Cardiovascular: denies: chest pain, palpitations Endocrine: no symptoms reported Gastrointestinal: denies: abdominal pain, nausea, diarrhea Genitourinary: denies: urgency, dysuria Musculoskeletal: denies: back pain, joint swelling, arthralgia Skin: denies: rash, lesions Neurological: denies: headache, weakness, paresthesias Psychiatric: denies: anxiety, depression Hematological/Lymphatic: denies: easy bleeding, easy bruising ED Past Medical Hx - Past Medical History Hx Hypertension: Yes Hx Heart Attack/AMI: No Hx Congestive Heart Failure: No Hx Diabetes: No Hx Pulmonary Embolism: No Hx GERD: No Hx Liver Disease: No Hx Renal Disease: No Hx Sickle Cell Disease: No Hx Arthritis: No Hx Headaches / Migraines: No Hx Seizures: No Hx Kidney Stones: No Hx Asthma: Yes Hx COPD: No Hx Tuberculosis: No Hx Dementia: No Hx HIV: No Additional medical history: HLD - Surgical History Hx Coronary Stent: No Hx Open Heart Surgery: No Hx Pacemaker: No Hx Internal Defibrillator: No Hx Cholecystectomy: No Hx Appendectomy: No Hx Breast Surgery: No - Social History Smoking Status: Former Smoker - Medications Home Medications: Home Medications Medication Instructions Recorded Confirmed Last Taken Type Ascorbic Acid [Vitamin C] 1,000 mg PO BID #60 tablet 08/30/20 09/05/20 Unknown Rx Fluticasone/Salmeterol [Advair 1 puff IH BID #1 disk.w.dev 08/30/20 09/05/20 Unknown Rx Diskus 100-50 mcg] Zinc Sulfate 220 mg PO QDAY #30 capsule 08/30/20 09/05/20 Unknown Rx Dexamethasone [Decadron] 6 mg PO DAILY #2 tablet 09/07/20 Unknown Rx Furosemide [Lasix TAB] 40 mg PO QDAY #60 tablet 09/07/20 Unknown Rx Metoprolol [Lopressor TAB] 25 mg PO BID #60 tablet 09/07/20 Unknown Rx lisinopriL [Zestril TAB] 10 mg PO QDAY #30 tablet 09/07/20 Unknown Rx ED Physical Exam - General Limitations: Language Barrier General appearance: alert - Head Head exam: Present: atraumatic, normocephalic - Eye Eye exam: Present: normal appearance - ENT ENT exam: Present: mucous membranes moist - Neck Neck exam: Present: normal inspection - Respiratory Respiratory exam: Present: normal lung sounds bilaterally, wheezes, rales, rho nchi. Absent: respiratory distress - Cardiovascular Cardiovascular Exam: Present: regular rate, normal rhythm. Absent: systolic murmur, diastolic murmur, rubs, gallop - GI/Abdominal GI/Abdominal exam: Present: soft, normal bowel sounds - Rectal Rectal exam: Present: deferred - Extremities Exam Extremities exam: Present: normal inspection - Back Exam Back exam: Present: normal inspection - Neurological Exam Neurological exam: Present: alert, oriented X3 - Psychiatric Psychiatric exam: Present: normal affect, normal mood - Skin Skin exam: Present: warm, dry, intact, normal color. Absent: rash ED Course Vital Signs 01/08/22 20:11 Temperature 99.6 F Pulse Rate 95 H Respiratory 18 Rate Blood Pressure 144/99 O2 Sat by Pulse 95 Oximetry ED Medical Decision Making - Lab Data Result diagrams: 01/08/22 20:29 01/08/22 20:29 - Radiology Data Radiology results: report reviewed, image reviewed - Medical Decision Making work up showed CHF /pulmoanry edema , rt given lasix , pt eloped before finishing treatent and dispo Critical care attestation.: If time is entered above; I have spent that time in minutes in the direct care of this critically ill patient, excluding procedure time. ED Disposition Clinical Impression: CHF (congestive heart failure), Shortness of breath Disposition: 07 LEFT AWOL/ELOPED Is pt being admited?: No Does the pt Need Aspirin: No Condition: Stable Instructions: Shortness of Breath, Adult, [id number] Referrals: KYLE GEIGER MD [Primary Care Provider] - 3-5 Days
--- NOTE | 2022-01-09 11:26 | Electrocardiograph Report ---
[facility] Test Date: 2022-01-08 Test Time: 20:35:48 Pat Name: AMISH PACHECO Department: Room: Gender: M Manager Spanish: [id number] : [id number] Requested By: MISHA WOODWARD Order Number: [id number] Reading MD: Leighton Dubose Measurements Intervals [place] Rate: 90 P: 73 NC: 193 QRS: 79 QRSD: 102 T: 57 QT: 420 QTc: 515 Interpretive Statements Sinus rhythm Probable left ventricular hypertrophy Anterior Q waves, possibly due to LVH Prolonged QT interval No previous ECG available for comparison Electronically Signed On 01-09-2022 11:25:51 EDT by Leighton Dubose
--- NOTE | 2022-01-09 12:30 | Emergency Department Report ---
ED Chest Pain HPI - General Chief Complaint: Chest Pain Stated Complaint: CHEST PAIN Time Seen by Provider: 01/08/22 23:04 Source: EMS Mode of arrival: Ambulatory Limitations: Language Barrier - History of Present Illness Initial Comments: Chief complaint: Chest pain abdominal pain Ian Dominican language line maintenance assistant used to obtain history and provide treatment plan. HPI: This is a 66-year-old male with history of CHF, thoracic aortic aneurysm, hypertension, hyperlipidemia who presents with chest pain abdominal pain for several days. Patient has intermittent severe left dull chest pain. He has associated shortness of breath and nausea. He has a pulling sensation near umbilicus According to EMR, patient underwent CT angiogram of the chest which revealed thoracic aortic aneurysm as well as coronary artery calcifications. MD Complaint: chest pain -: Gradual, days(s) (Several days) Pain Location: substernal, left chest Severity: severe Severity scale (0 -10): 10 Quality: heaviness Improves With: nothing Treatments Prior to Arrival: aspirin, nitroglycerin - Related Data Previous Rx's Medication Instructions Recorded Last Taken Type Ascorbic Acid [Vitamin C] 1,000 mg PO BID #60 tablet 08/30/20 Unknown Rx Fluticasone/Salmeterol [Advair 1 puff IH BID #1 disk.w.dev 08/30/20 Unknown Rx Diskus 100-50 mcg] Zinc Sulfate 220 mg PO QDAY #30 capsule 08/30/20 Unknown Rx Dexamethasone [Decadron] 6 mg PO DAILY #2 tablet 09/07/20 Unknown Rx Furosemide [Lasix TAB] 40 mg PO QDAY #60 tablet 09/07/20 Unknown Rx Metoprolol [Lopressor TAB] 25 mg PO BID #60 tablet 09/07/20 Unknown Rx lisinopriL [Zestril TAB] 10 mg PO QDAY #30 tablet 09/07/20 Unknown Rx Allergies Allergy/AdvReac Type Severity Reaction Status Date / Time No Known Allergies Allergy Unverified 08/25/20 10:28 Heart Score - HEART Score History: Highly suspicious EKG: Non-specific Age: > 65 Risk factors: 1-2 risk factors Troponin: < normal limit HEART Score: 6 - EKG Read Time Time EKG Completed: 20:35 EKG Read Time: 20:35 - Critical Actions Critical Actions: 4-6 pts:12-16.6% risk of adverse cardiac event. Should be admitted ED Review of Systems ROS: Stated complaint: CHEST PAIN Other details as noted in HPI Comment: All other systems reviewed and negative Constitutional: denies: chills, fever Eyes: denies: eye pain, eye discharge, vision change ENT: denies: ear pain, throat pain Respiratory: denies: cough, shortness of breath, wheezing Cardiovascular: denies: chest pain, palpitations Endocrine: no symptoms reported Gastrointestinal: denies: abdominal pain, nausea, diarrhea Genitourinary: denies: urgency, dysuria Musculoskeletal: denies: back pain, joint swelling, arthralgia Skin: denies: rash, lesions Neurological: denies: headache, weakness, paresthesias Psychiatric: denies: anxiety, depression Hematological/Lymphatic: denies: easy bleeding, easy bruising ED Past Medical Hx - Past Medical History Previous Medical History?: Yes Hx Hypertension: Yes Hx Heart Attack/AMI: No Hx Congestive Heart Failure: No Hx Diabetes: No Hx Pulmonary Embolism: No Hx GERD: No Hx Liver Disease: No Hx Renal Disease: No Hx Sickle Cell Disease: No Hx Arthritis: No Hx Headaches / Migraines: No Hx Seizures: No Hx Kidney Stones: No Hx Asthma: Yes Hx COPD: No Hx Tuberculosis: No Hx Dementia: No Hx HIV: No Additional medical history: HLD - Surgical History Past Surgical History?: No Hx Coronary Stent: No Hx Open Heart Surgery: No Hx Pacemaker: No Hx Internal Defibrillator: No Hx Cholecystectomy: No Hx Appendectomy: No Hx Breast Surgery: No - Family History Family history: diabetes, hypertension - Social History Smoking Status: Former Smoker Substance Use Type: Alcohol - Medications Home Medications: Home Medications Medication Instructions Recorded Confirmed Last Taken Type Ascorbic Acid [Vitamin C] 1,000 mg PO BID #60 tablet 08/30/20 09/05/20 Unknown Rx Fluticasone/Salmeterol [Advair 1 puff IH BID #1 disk.w.dev 08/30/20 09/05/20 Unknown Rx Diskus 100-50 mcg] Zinc Sulfate 220 mg PO QDAY #30 capsule 08/30/20 09/05/20 Unknown Rx Dexamethasone [Decadron] 6 mg PO DAILY #2 tablet 09/07/20 Unknown Rx Furosemide [Lasix TAB] 40 mg PO QDAY #60 tablet 09/07/20 Unknown Rx Metoprolol [Lopressor TAB] 25 mg PO BID #60 tablet 09/07/20 Unknown Rx lisinopriL [Zestril TAB] 10 mg PO QDAY #30 tablet 09/07/20 Unknown Rx ED Physical Exam - General Limitations: Language Barrier General appearance: alert, in no apparent distress, other (Frequent cough) - Head Head exam: Present: atraumatic, normocephalic - Eye Eye exam: Present: normal appearance - ENT ENT exam: Present: mucous membranes moist - Neck Neck exam: Present: normal inspection, full ROM. Absent: tenderness, meningismus - Respiratory Respiratory exam: Present: normal lung sounds bilaterally. Absent: respiratory distress, wheezes, rales, rhonchi - Cardiovascular Cardiovascular Exam: Present: regular rate, normal rhythm, normal heart sounds. Absent: systolic murmur, diastolic murmur, rubs, gallop - GI/Abdominal GI/Abdominal exam: Present: soft, normal bowel sounds. Absent: distended, tenderness, guarding, rebound - Rectal Rectal exam: Present: deferred - Back Exam Back exam: Present: normal inspection - Neurological Exam Neurological exam: Present: alert, oriented X3, normal gait - Psychiatric Psychiatric exam: Present: normal affect, normal mood - Skin Skin exam: Present: warm, dry, intact, normal color. Absent: rash ED Course Vital Signs 01/08/22 20:11 Temperature 99.6 F Pulse Rate 95 H Respiratory 18 Rate Blood Pressure 144/99 O2 Sat by Pulse 95 Oximetry ED Medical Decision Making - Lab Data Result diagrams: 01/08/22 20:29 01/08/22 20:29 Laboratory Last Values WBC 7.1 K/mm3 (4.5-11.0) 01/08/22 20: RBC 4.61 M/mm3 (3.65-5.03) 01/08/22 20:29 Hgb 11.1 gm/dl (11.8-15.2) L 01/08/22 20: Hct 35.4 % (35.5-45.6) L 01/08/22 20:29 MCV 77 fl (84-94) L 01/08/22 20:29 MCH 24 pg (28-32) L 01/08/22 20: MCHC 31 % (32-34) L 01/08/22 20: RDW 23.6 % (13.2-15.2) H 01/08/22 20:29 Plt Count 207 K/mm3 (140-440) 01/08/22 20: Lymph % (Auto) 9.5 % (13.4-35.0) L 01/08/22 20: [place] % (Auto) 11.7 % (0.0-7.3) H 01/08/22 20: Eos % (Auto) 0.9 % (0.0-4.3) 01/08/22 20: Baso % (Auto) 0.6 % (0.0-1.8) 01/08/22 20: Lymph # (Auto) 0.7 K/mm3 (1.2-5.4) L 01/08/22: [place] # (Auto) 0.8 K/mm3 (0.0-0.8) 01/08/22 20: Eos # (Auto) 0.1 K/mm3 (0.0-0.4) 01/08/22: Baso # (Auto) 0.0 K/mm3 (0.0-0.1) 01/08/22 20: Seg Neutrophils % 77.3 % (40.0-70.0) H 01/08/22 20: Seg Neutrophils # 5.5 K/mm3 (1.8-7.7) 01/08/22: PT 14.9 Sec. (12.2-14.9) 01/08/22 23:17 INR 1.05 (0.87-1.13) 01/08/22 23:17 Sodium 134 mmol/L (137-145) L 01/08/22 20: Potassium 3.9 mmol/L (3.6-5.0) 01/08/22: Chloride 99.7 mmol/L (98-107) 01/08/22 20: Carbon Dioxide 23 mmol/L (22-30) 01/08/22 20: Anion Gap 15 mmol/L 01/08/22 20: BUN 15 mg/dL (9-20) 01/08/22 20: Creatinine 0.7 mg/dL (0.8-1.3) L 01/08/22 20: Estimated GFR > 60 ml/min 01/08/22 20: BUN/Creatinine Ratio 21 % 01/08/22 20:29 Glucose 99 mg/dL (75-100) 01/08/22 20:29 Calcium 8.1 mg/dL (8.4-10.2) L 01/08/22 20:29 Total Bilirubin 0.70 mg/dL (0.1-1.2) 01/08/22 20:29 AST 22 units/L (5-40) 01/08/22 20:29 ALT 14 units/L (7-56) 01/08/22 20:29 Alkaline Phosphatase 106 units/L (35-129) 01/08/22 20:29 Total Creatine Kinase 98 units/L (55-170) 01/08/22 23:17 CK-MB (CK-2) 3.1 ng/mL (0.0-4.0) 01/08/22 23:17 CK-MB (CK-2) Rel Index 3.1 (0-4) 01/08/22 23:17 Troponin T < 0.010 ng/mL (0.00-0.029) 01/09/22 02:20 NT-Pro-B Natriuret Pep 28017 pg/mL (0-900) H 01/08/22 23:17 Total Protein 6.7 g/dL (6.3-8.2) 01/08/22 20:29 Albumin 3.1 g/dL (3.9-5) L 01/08/22 20:29 Albumin/Globulin Ratio 0.9 % 01/08/22 20:29 Lipase 29 units/L (13-60) 01/08/22 23:17 Urine Color Dark yellow (Yellow) 01/08/22 Unknown Urine Turbidity Clear (Clear) 01/08/22 Unknown Urine pH 5.0 (5.0-7.0) 01/08/22 Unknown Ur Specific [place] 1.035 (1.003-1.030) H 01/08/22 Unknown Urine Protein 100 mg/dl mg/dL (Negative) 01/08/22 Unknown Urine Glucose (UA) Negative mg/dL (Negative) 01/08/22 Unknown Urine Ketones Negative mg/dL (Negative) 01/08/22 Unknown Urine Blood Trace (Negative) 01/08/22 Unknown Urine Nitrite Neg (Negative) 01/08/22 Unknown Ur Reducing Substances Not Reportable 01/08/22 Unknown Urine Bilirubin Negative (Negative) 01/08/22 Unknown Urine Ictotest Not Reportable 01/08/22 Unknown Urine Urobilinogen < 2.0 mg/dL (<2.0) 01/08/22 Unknown Ur Leukocyte Esterase Neg (Negative) 01/08/22 Unknown Urine WBC (Auto) 1.0 /HPF (0.0-6.0) 01/08/22 Unknown Urine RBC (Auto) 8.0 /HPF (0.0-6.0) 01/08/22 Unknown U Epithel Cells (Auto) 2.0 /HPF (0-13.0) 01/08/22 Unknown Urine Mucus Few /HPF 01/08/22 Unknown - EKG Data -: EKG Interpreted by Me EKG shows normal: sinus rhythm Rate: normal - EKG Data 01/09/22 12:29 EKG obtained 2034 EKG interpreted by sd Normal sinus rhythm rate 90 bpm normal axis prolonged QT no ST elevation nonspecific T wave pattern - Radiology Data Radiology results: report reviewed Patient Name: AMISH PACHECO Gender: Male Date of : 1955 Referring Provider: DOC, ED Organization: [facility] Accession Number: [id number] Requested Date: January 08, 2022 20:13 Report Status: Final Requested Procedure: 1 Procedure Description: XR chest routine 2V Modality: XR Findings Reporting MD: Lisandro Pham Dictation Time: January 08, 2022 20:02 Creative Art Therapist: Not available Railroad Crane Operator Date: XR chest routine 2V INDICATION / CLINICAL INFORMATION: chest pain. COMPARISON: 09/06/2020 FINDINGS: SUPPORT DEVICES: None. HEART /PULMONARY VASCULATURE: There is cardiac enlargement. Pulmonary vasculature is mildly congested. LUNGS / PLEURA: There are perihilar and left greater than right bibasilar airspace opacities. No sizable pleural effusion. No pneumothorax. ADDITIONAL FINDINGS: No significant additional findings. IMPRESSION: Perihilar and bibasilar airspace opacities, likely reflecting pulmonary edema in the setting of CHF. Signer Name: Lisandro Pham MD Signed: 01/08/2022 8:02 PM Workstation Name: [id number] Patient Name: AMISH PACHECO Gender: Male Date of : 1955 Referring Provider: KRYSTLE WILSON Organization: [facility] Accession Number: [id number] Requested Date: January 09, 2022 11:14 Report Status: Final Requested Procedure: 1 Procedure Description: CT abdomen pelvis w con Modality: CT Findings Reporting MD: Adam Martínez Dictation Time: January 09, 2022 12:15 Creative Art Therapist: Not available Railroad Crane Operator Date: CT ABDOMEN AND PELVIS WITH IV CONTRAST INDICATION: abdominal pain 100 ML OMNI 300 . COMPARISON: None available. TECHNIQUE: Axial CT images were obtained through the abdomen and pelvis after 100 milliners Omnipaque [address] scans at this location are performed using CT dose reduction for ALARA by means of automated exposure control. FINDINGS -- ABDOMEN: Lung Bases: Large right pleural effusion with small to moderate left pleural effusion. The heart size is enlarged and there is prominent coronary artery calcification. Prominent aortic valvular calcification.. Liver: Normal. Gallbladder: Normal. Bile Ducts: Normal. Pancreas: Normal. Spleen: Normal. Adrenals: Normal. Right Kidney and Proximal Ureter: 2.7 cm cystlike lesion within the lower pole the right kidney.. Left Kidney and Proximal Ureter: Tiny nonobstructive calculus within the upper pole the left kidney.. Stomach and Bowel: Mild to moderate thickening involving the distal gastric antrum mucosa circumferentially. Lymph Nodes: No significant adenopathy. Aorta: No significant abnormality. IVC: Normal. Additional Findings: None. FINDINGS -- PELVIS: Urinary Bladder and Distal Ureters: Normal. Reproductive Organs: No acute abnormality. Appendix: Normal. Bowel: No acute abnormality. Free Fluid: Tiny free fluid mostly tracking along the right inguinal hernia. Lymph Nodes: No significant adenopathy. Additional Findings: None. Skeletal System: No acute abnormality. IMPRESSION: 1. Cardiomegaly, interstitial edema and bilateral pleural effusions, as above. 2. Near circumferential thickening of the distal gastric antrum mucosa raises the possibility of gastritis. Signer Name: Adam Martínez MD Signed: 01/09/2022 12:15 PM [facility] [address] , [address] [place] [address] P [phone] F [phone] [facility] - Report exported on Jan 09, 2022 12:34:14 [id number] - Page 2 of 2 Workstation Name: [id number] - Medical Decision Making 1. Acute coronary syndrome: According to previous CT angiogram of the chest to rule out pulmonary embolism performed at this institution patient had the presence of coronary artery calcifications. Heart score 6. Patient given aspirin via EMS. 2. Abdominal pain. CT abdomen pelvis revealed evidence of gastritis. Appendix normal. Gallbladder normal. CT also revealed small to moderate left pleural effusion on the left large pleural effusion on the right. 3. Acute congestive heart failure: First dose of Lasix given emergency department Critical care attestation.: If time is entered above; I have spent that time in minutes in the direct care of this critically ill patient, excluding procedure time. ED Disposition Clinical Impression: CHF (congestive heart failure), Acute coronary syndrome, Gastritis Disposition: 09 ADMITTED INPATIENT Is pt being admited?: No Does the pt Need Aspirin: No Referrals: KYLE GEIGER MD [Primary Care Provider] - 3-5 Days
--- NOTE | 2022-01-09 13:19 | Cat Scan Report ---
CT ABDOMEN AND PELVIS WITH IV CONTRAST INDICATION: abdominal pain 100 ML OMNI 300 . COMPARISON: None available. TECHNIQUE: Axial CT images were obtained through the abdomen and pelvis after 100 milliners Omnipaque [address] All CT scans at this location are performed using CT dose reduction for ALARA by means of auto mated exposure control. FINDINGS -- ABDOMEN: Lung Bases: Large right pleural effusion with small to moderate left pleural effusion. The heart size is enlarged and there is prominent coronary artery calcification. Prominent aortic valvular calcific ation.. Liver: Normal. Gallbladder: Normal. Bile Ducts: Normal. Pancreas: Normal. Spleen: Normal. Adrenals: Normal. Right Kidney and Proximal Ureter: 2.7 cm cystlike lesion within the lower pole the right kidney.. Left Kidney and Proximal Ureter: Tiny nonobstructive calculus within the upper pole the left kidney.. Stomach and Bowel: Mild to moderate thickening involving the distal gastric antrum mucosa circumferen tially. Lymph Nodes: No significant adenopathy. Aorta: No significant abnormality. IVC: Normal. Additional Findings: None. FINDINGS -- PELVIS: Urinary Bladder and Distal Ureters: Normal. Reproductive Organs: No acute abnormality. Appendix: Normal. Bowel: No acute abnormality. Free Fluid: Tiny free fluid mostly tracking along the right inguinal hernia. Lymph Nodes: No significant adenopathy. Additional Findings: None. Skeletal System: No acute abnormality. IMPRESSION: 1. Cardiomegaly, interstitial edema and bilateral pleural effusions, as above. 2. Near circumferential thickening of the distal gastric antrum mucosa raises the possibility of rosalino ritis. Signer Name: Adam Martínez MD Signed: 01/09/2022 1:15 PM Workstation Name: [id number]
[2022-01-09] MEDS ORDERED: ONDANSETRON 4 MG/2 ML INJ IV PRN (17:23)
[2022-01-09] MEDS ORDERED: oxyCODONE /ACETAMINOPHEN 5-325MG TAB PO PRN (17:23)
--- NOTE | 2022-01-09 17:31 | History and Physical Report ---
History of Present Illness Date of examination: 01/09/22 Date of admission: 12/20/2021 Chief complaint: Chest pain since a.m. History of present illness: 66-year-old Danish-speaking male with history of CHF, thoracic cardiology aneurysm, hyperlipidemia presents with epigastric and retrosternal chest pain for several days. Patient has intermittent chest pain. Patient also has increasing shortness of breath and orthopnea. Patient had CT angiogram of the chest which revealed thoracic aortic aneurysm as well as coronary artery calcifications in the past. No fever or chills. Patient medications for blood pressure and COPD. Heart Score - HEART Score History: Highly suspicious EKG: Non-specific Age: > 65 Risk factors: 1-2 risk factors Troponin: < normal limit HEART Score: 6 - EKG Read Time Time EKG Completed: 20:35 EKG Read Time: 20:35 - Critical Actions Critical Actions: 4-6 pts:12-16.6% risk of adverse cardiac event. Should be admitted - Past Medical History --Previous Medical History?: Yes --Hypertension: Yes Additional medical history: HLD - Surgical History --No - Family History Family history: diabetes, hypertension - Social History Smoking Status: Former Smoker Substance Use Type: Alcohol - Medications Home Medications: Home Medications Medication Instructions Recorded Confirmed Last Taken Type Ascorbic Acid [Vitamin C] 1,000 mg PO BID #60 tablet 08/30/20 09/05/20 Unknown Rx Fluticasone/Salmeterol [Advair 1 puff IH BID #1 disk.w.dev 08/30/20 09/05/20 Unknown Rx Diskus 100-50 mcg] Zinc Sulfate 220 mg PO QDAY #30 capsule 08/30/20 09/05/20 Unknown Rx Dexamethasone [Decadron] 6 mg PO DAILY #2 tablet 09/07/20 Unknown Rx Furosemide [Lasix TAB] 40 mg PO QDAY #60 tablet 09/07/20 Unknown Rx Metoprolol [Lopressor TAB] 25 mg PO BID #60 tablet 09/07/20 Unknown Rx lisinopriL [Zestril TAB] 10 mg PO QDAY #30 tablet 09/07/20 Unknown Rx Review of Systems ROS: Stated complaint: CHEST PAIN Other details as noted in HPI Comment: All other systems reviewed and negative Constitutional: denies: chills, fever Eyes: denies: eye pain, eye discharge, vision change ENT: denies: ear pain, throat pain Respiratory: denies: cough, shortness of breath, wheezing Cardiovascular: Chest pain and shortness of breath on minimal exertion Endocrine: no symptoms reported Gastrointestinal: denies: abdominal pain, nausea, diarrhea Genitourinary: denies: urgency, dysuria Musculoskeletal: denies: back pain, joint swelling, arthralgia Skin: denies: rash, lesions Neurological: denies: headache, weakness, paresthesias Psychiatric: denies: anxiety, depression Hematological/Lymphatic: denies: easy bleeding, easy bruising Medications and Allergies Allergies Allergy/AdvReac Type Severity Reaction Status Date / Time No Known Allergies Allergy Unverified 08/25/20 10:28 Home Medications Medication Instructions Recorded Confirmed Last Taken Type Ascorbic Acid [Vitamin C] 1,000 mg PO BID #60 tablet 08/30/20 01/10/22 01/04/22 09:00 Rx Fluticasone/Salmeterol [Advair 1 puff IH BID #1 disk.w.dev 08/30/20 01/10/22 01/05/22 20:00 Rx Diskus 100-50 mcg] Zinc Sulfate 220 mg PO QDAY #30 capsule 08/30/20 01/10/22 01/04/22 09:00 Rx Dexamethasone [Decadron] 6 mg PO DAILY #2 tablet 09/07/20 01/10/22 01/04/22 09:00 Rx Furosemide [Lasix TAB] 40 mg PO QDAY #60 tablet 09/07/20 01/10/22 01/04/22 09:00 Rx Metoprolol [Lopressor TAB] 25 mg PO BID #60 tablet 09/07/20 01/10/22 01/04/22 09:00 Rx lisinopriL [Zestril TAB] 10 mg PO QDAY #30 tablet 09/07/20 01/10/22 01/04/22 09:00 Rx Exam - Constitutional Vitals: Temp Pulse Resp BP Pulse Ox 99.6 F 95 H 18 144/99 95 01/08/22 20:11 01/08/22 20:11 01/08/22 20:11 01/08/22 20:11 01/08/22 20:11 General appearance: Present: no acute distress, well-nourished - EENT Eyes: Present: PERRL ENT: hearing intact, clear oral mucosa - Neck Neck: Present: supple, normal ROM - Respiratory Respiratory effort: normal Respiratory: bilateral: CTA - Cardiovascular Heart rate: 78 Rhythm: regular Heart Sounds: Present: S1 & S2. Absent: rub, click - Extremities Extremities: pulses symmetrical, No edema Peripheral Pulses: within normal limits - Abdominal General gastrointestinal: Present: soft, non-tender, non-distended, normal bowel sounds Male genitourinary: Present: normal - Integumentary Integumentary: Present: clear, warm, dry - Musculoskeletal Musculoskeletal: gait normal, strength equal bilaterally - Psychiatric Psychiatric: appropriate mood/affect, intact judgment & insight - Neurologic Neurologic: CNII-XII intact, moves all extremities HEART Score - HEART Score EKG: Non-specific Age: > 65 Risk factors: 1-2 risk factors Troponin: Troponin T < 0.010 ng/mL (0.00-0.029) 01/09/22 02:20 Troponin: < normal limit - Critical Actions Critical Actions: 4-6 pts:12-16.6% risk of adverse cardiac event. Should be admitted Results - Labs CBC & Chem 7: 01/10/22 04:19 01/10/22 04:19 Labs: Laboratory Last Values WBC 7.1 K/mm3 (4.5-11.0) 01/08/22 20:29 RBC 4.61 M/mm3 (3.65-5.03) 01/08/22 20:29 Hgb 11.1 gm/dl (11.8-15.2) L 01/08/22 20:29 Hct 35.4 % (35.5-45.6) L 01/08/22 20:29 MCV 77 fl (84-94) L 01/08/22 20:29 MCH 24 pg (28-32) L 01/08/22 20:29 MCHC 31 % (32-34) L 01/08/22 20:29 RDW 23.6 % (13.2-15.2) H 01/08/22 20:29 Plt Count 207 K/mm3 (140-440) 01/08/22 20:29 Lymph % (Auto) 9.5 % (13.4-35.0) L 01/08/22 20:29 [place] % (Auto) 11.7 % (0.0-7.3) H 01/08/22 20:29 Eos % (Auto) 0.9 % (0.0-4.3) 01/08/22 20: Baso % (Auto) 0.6 % (0.0-1.8) 01/08/22 20: Lymph # (Auto) 0.7 K/mm3 (1.2-5.4) L 01/08/22 20: [place] # (Auto) 0.8 K/mm3 (0.0-0.8) 01/08/22 20: Eos # (Auto) 0.1 K/mm3 (0.0-0.4) 01/08/22 20: Baso # (Auto) 0.0 K/mm3 (0.0-0.1) 01/08/22: Seg Neutrophils % 77.3 % (40.0-70.0) H 01/08/22 20: Seg Neutrophils # 5.5 K/mm3 (1.8-7.7) 01/08/22: PT 14.9 Sec. (12.2-14.9) 01/08/22 23:17 INR 1.05 (0.87-1.13) 01/08/22 23:17 Sodium 134 mmol/L (137-145) L 01/08/22 20: Potassium 3.9 mmol/L (3.6-5.0) 01/08/22: Chloride 99.7 mmol/L (98-107) 01/08/22: Carbon Dioxide 23 mmol/L (22-30) 01/08/22 20: Anion Gap 15 mmol/L 01/08/22 20: BUN 15 mg/dL (9-20) 01/08/22 20: Creatinine 0.7 mg/dL (0.8-1.3) L 01/08/22 20: Estimated GFR > 60 ml/min 01/08/22 20: BUN/Creatinine Ratio 21 % 01/08/22 20: Glucose 99 mg/dL (75-100) 01/08/22 20: Calcium 8.1 mg/dL (8.4-10.2) L 01/08/22 20: Total Bilirubin 0.70 mg/dL (0.1-1.2) 01/08/22 20:29 AST 22 units/L (5-40) 01/08/22 20:29 ALT 14 units/L (7-56) 01/08/22 20:29 Alkaline Phosphatase 106 units/L (35-129) 01/08/22 20:29 Total Creatine Kinase 98 units/L (55-170) 01/08/22 23:17 CK-MB (CK-2) 3.1 ng/mL (0.0-4.0) 01/08/22 23:17 CK-MB (CK-2) Rel Index 3.1 (0-4) 01/08/22 23:17 Troponin T < 0.010 ng/mL (0.00-0.029) 01/09/22 02:20 NT-Pro-B Natriuret Pep 41939 pg/mL (0-900) H 01/08/22 23:17 Total Protein 6.7 g/dL (6.3-8.2) 01/08/22 20:29 Albumin 3.1 g/dL (3.9-5) L 01/08/22 20:29 Albumin/Globulin Ratio 0.9 % 01/08/22 20:29 Lipase 29 units/L (13-60) 01/08/22 23:17 Urine Color Dark yellow (Yellow) 01/08/22 Unknown Urine Turbidity Clear (Clear) 01/08/22 Unknown Urine pH 5.0 (5.0-7.0) 01/08/22 Unknown Ur Specific [place] 1.035 (1.003-1.030) H 01/08/22 Unknown Urine Protein 100 mg/dl mg/dL (Negative) 01/08/22 Unknown Urine Glucose (UA) Negative mg/dL (Negative) 01/08/22 Unknown Urine Ketones Negative mg/dL (Negative) 01/08/22 Unknown Urine Blood Trace (Negative) 01/08/22 Unknown Urine Nitrite Neg (Negative) 01/08/22 Unknown Ur Reducing Substances Not Reportable 01/08/22 Unknown Urine Bilirubin Negative (Negative) 01/08/22 Unknown Urine Ictotest Not Reportable 01/08/22 Unknown Urine Urobilinogen < 2.0 mg/dL (<2.0) 01/08/22 Unknown Ur Leukocyte Esterase Neg (Negative) 01/08/22 Unknown Urine WBC (Auto) 1.0 /HPF (0.0-6.0) 01/08/22 Unknown Urine RBC (Auto) 8.0 /HPF (0.0-6.0) 01/08/22 Unknown U Epithel Cells (Auto) 2.0 /HPF (0-13.0) 01/08/22 Unknown Urine Mucus Few /HPF 01/08/22 Unknown Short CBC 01/10/22 Range/Units 04:19 WBC 8.6 (4.5-11.0) K/mm3 Hgb 11.9 (11.8-15.2) gm/dl Hct 38.0 (35.5-45.6) % Plt Count 221 (140-440) K/mm3 BMP 01/10/22 04:19 Sodium 136 L Potassium 3.6 Chloride 98.2 Carbon Dioxide 28 BUN 20 Creatinine 0.8 Glucose 93 Calcium 8.4 Cardiac Enzymes 01/09/22 01/09/22 Range/Units 17:56 23:38 Troponin T < 0.010 < 0.010 (0.00-0.029) ng/mL Liver Function 01/10/22 Range/Units 04:19 Total Bilirubin 0.80 (0.1-1.2) mg/dL AST 19 (5-40) units/L ALT 11 (7-56) units/L Alkaline Phosphatase 101 (35-129) units/L Albumin 3.2 L (3.9-5) g/dL - Imaging and Cardiology EKG: report reviewed (Sinus rhythm no acute ST-T wave changes) Chest x-ray: report reviewed (No acute findings) Assessment and Plan Advance Directives: Yes (Full code) VTE prophylaxis?: Chemical Plan of care discussed with patient/family: Yes - Patient Problems (1) Acute exacerbation of CHF (congestive heart failure) Current Visit: Yes Status: Acute Qualifiers: Heart failure type: combined systolic and diastolic Qualified Code(s): I50.43 - Acute on chronic combined systolic (congestive) and diastolic (congestive) heart failure Plan to address problem: Echocardiogram for ejection fraction, wall motion abnormalities and valve function Daily intake and output Echocardiogram IV Lasix and Aldactone (2) Acute coronary syndrome Current Visit: Yes Status: Acute Plan to address problem: Chest pain rule out [place] work-up Lexiscan in the morning Serial troponins (3) Hypertension Current Visit: Yes Status: Chronic Qualifiers: Hypertension type: primary hypertension Qualified Code(s): I10 - Essential (primary) hypertension Plan to address problem: Continue antihypertensives and adjust medications (4) COPD (chronic obstructive pulmonary disease) Current Visit: Yes Status: Chronic Qualifiers: COPD type: unspecified COPD Qualified Code(s): J44.9 - Chronic obstructive pulmonary disease, unspecified Plan to address problem: Duo nebs on a as needed basis and (5) DVT prophylaxis Current Visit: Yes Status: Acute Plan to address problem: Heparin and GI prophylaxis (6) Advance care planning Current Visit: Yes Status: Acute Plan to address problem: Disease education conducted, care plan discussed, diagnosis discussed, prognosis discussed. Patient is full code. Patient acknowledges understanding and agreement with care plan. +30 minutes.
[2022-01-09] MEDS: FUROSEMIDE 40 MG/4 ML INJ IV SCH (18:29)
[2022-01-09] MEDS: SPIRONOLACTONE 25 MG TAB PO SCH (23:17)
[2022-01-09] MEDS: HEPARIN 5,000 UNIT/1 ML VIAL SUB-Q SCH (23:17)
[2022-01-10 04:47] LABS: Basophils # (Auto) 0.1 K/mm3 (0.0-0.1); Eosinophils # (Auto) 0.1 K/mm3 (0.0-0.4); Eosinophils % (Auto) 1.3 % (0.0-4.3); Hemoglobin 11.9 gm/dl (11.8-15.2); Lymphocytes # (Auto) 1.1 K/mm3 (1.2-5.4); Lymphocytes % (Auto) 12.5 % (13.4-35.0); Mean Corpuscular HGB Conc 31 % (32-34); Mean Corpuscular Volume 77 fl (84-94); Monocytes # (Auto) 1.2 K/mm3 (0.0-0.8); Monocytes % (Auto) 13.4 % (0.0-7.3); Platelet Count 221 K/mm3 (140-440); Red Blood Count 4.94 M/mm3 (3.65-5.03)
[2022-01-10 04:58] LABS: Red Cell Distribution Width 23.5 % (13.2-15.2)
[2022-01-10 05:05] LABS: Alanine Aminotransferase 11 units/L (7-56); Albumin 3.2 g/dL (3.9-5); BUN/Creatinine Ratio 25; Blood Urea Nitrogen 20 mg/dL (9-20); Calcium 8.4 mg/dL (8.4-10.2); Hemolysis Index 3
[2022-01-10] MEDS: FUROSEMIDE 40 MG/4 ML INJ IV SCH ×2 (07:50→17:24)
--- NOTE | 2022-01-10 08:10 | Electrocardiograph Report ---
Test Date: 2022-01-10 Test Time: 06:49:50 Pat Name: AMISH PACHECO Department: Room: A464 1 Gender: M Hand Turner: MANISHA : 1955 Requested By: MISHA WOODWARD Order Number: [id number] Reading MD: Leighton Dubose Measurements Intervals [place] Rate: 92 P: 64 GA: 222 QRS: 83 QRSD: 101 T: 73 QT: 411 QTc: 509 Interpretive Statements Sinus rhythm Prolonged GA interval Probable left atrial enlargement Left ventricular hypertrophy Anterior infarct, old Prolonged QT interval Compared to ECG 01/08/2022 20:35:48 First degree AV block now present Myocardial infarct finding now present Q waves no longer present Electronically Signed On 01-10-2022 8:10:28 EDT by Leighton Dubose
--- NOTE | 2022-01-10 09:20 | Progress Note ---
Assessment and Plan Assessment and plan: -- Acute exacerbation of chronic systolic CHF (congestive heart failure) Current Visit: Yes Status: Acute EF 45% in 2019 Follow echocardiogram for ejection fraction, wall motion abnormalities and valve function Daily intake and output, Antifailure medications Input output monitoring, daily weights --History of severe mitral valve prolapse Severe mitral regurgitation Current Visit: Yes Status: Chronic Management per cardiology - Acute coronary syndrome Current Visit: Yes Status: Acute Chest pain rule out [place] work-up Lexiscan in the morning Serial troponins --Hypertension Current Visit: Yes Status: Chronic Continue antihypertensives and adjust medications --COPD (chronic obstructive pulmonary disease) Current Visit: Yes Status: Chronic Duo nebs on a as needed basis and --DVT prophylaxis Current Visit: Yes Status: Acute Heparin and GI prophylaxis --Advance care planning Current Visit: Yes Status: Acute Disease education conducted, care plan discussed, diagnosis discussed, prognosis discussed. Patient is full code. Patient acknowledges understanding and agreement with care plan. +30 minutes. Closely monitor the patient and adjust management as needed Cardiology evaluation recommendation noted and appreciated Plan of care reviewed with the patient and his nurse History Interval history: I have seen and examined the patient at the bedside Patient's chart and medications reviewed No new events reported by the nursing Vital signs reviewed Hospitalist Physical - Constitutional Vitals: Temp Pulse Resp BP Pulse Ox 97.9 F 92 H 16 138/91 91 01/10/22 08:43 01/10/22 08:43 01/10/22 08:43 01/10/22 08:43 01/10/22 08:43 General appearance: Present: no acute distress, well-nourished - EENT Eyes: Present: PERRL, EOM intact - Neck Neck: Present: supple, normal ROM - Respiratory Respiratory effort: normal Respiratory: bilateral: diminished, negative: rales, rhonchi, wheezing - Cardiovascular Rhythm: regular Heart Sounds: Present: S1 & S2 - Extremities Extremities: no ischemia, No edema - Abdominal General gastrointestinal: soft, non-tender, non-distended, normal bowel sounds - Integumentary Integumentary: Present: clear, warm - Psychiatric Psychiatric: appropriate mood/affect, cooperative - Neurologic Neurologic: CNII-XII intact, moves all extremities HEART Score - HEART Score EKG: Non-specific Age: > 65 Risk factors: 1-2 risk factors Troponin: Troponin T < 0.010 ng/mL (0.00-0.029) 01/09/22 23:38 Troponin: < normal limit - Critical Actions Critical Actions: 4-6 pts:12-16.6% risk of adverse cardiac event. Should be admitted Results - Labs CBC & Chem 7: 01/10/22 04:19 01/10/22 04:19 Labs: Laboratory Last Values WBC 8.6 K/mm3 (4.5-11.0) 01/10/22 04:19 RBC 4.94 M/mm3 (3.65-5.03) 01/10/22 04:19 Hgb 11.9 gm/dl (11.8-15.2) 01/10/22 04:19 Hct 38.0 % (35.5-45.6) 01/10/22 04:19 MCV 77 fl (84-94) L 01/10/22 04:19 MCH 24 pg (28-32) L 01/10/22 04:19 MCHC 31 % (32-34) L 01/10/22 04:19 RDW 23.5 % (13.2-15.2) H 01/10/22 04:19 Plt Count 221 K/mm3 (140-440) 01/10/22 04:19 Lymph % (Auto) 12.5 % (13.4-35.0) L 01/10/22 04:19 [place] % (Auto) 13.4 % (0.0-7.3) H 01/10/22 04:19 Eos % (Auto) 1.3 % (0.0-4.3) 01/10/22 04:19 Baso % (Auto) 1.0 % (0.0-1.8) 01/10/22 04:19 Lymph # (Auto) 1.1 K/mm3 (1.2-5.4) L 01/10/22 04:19 [place] # (Auto) 1.2 K/mm3 (0.0-0.8) H 01/10/22 04:19 Eos # (Auto) 0.1 K/mm3 (0.0-0.4) 01/10/22 04:19 Baso # (Auto) 0.1 K/mm3 (0.0-0.1) 01/10/22 04:19 Seg Neutrophils % 71.8 % (40.0-70.0) H 01/10/22 04:19 Seg Neutrophils # 6.2 K/mm3 (1.8-7.7) 01/10/22 04:19 PT 14.9 Sec. (12.2-14.9) 01/08/22 23:17 INR 1.05 (0.87-1.13) 01/08/22 23:17 Sodium 136 mmol/L (137-145) L 01/10/22 04:19 Potassium 3.6 mmol/L (3.6-5.0) 01/10/22 04:19 Chloride 98.2 mmol/L (98-107) 01/10/22 04:19 Carbon Dioxide 28 mmol/L (22-30) 01/10/22 04:19 Anion Gap 13 mmol/L 01/10/22 04:19 BUN 20 mg/dL (9-20) 01/10/22 04:19 Creatinine 0.8 mg/dL (0.8-1.3) 01/10/22 04:19 Estimated GFR > 60 ml/min 01/10/22 04:19 BUN/Creatinine Ratio 25 % 01/10/22 04:19 Glucose 93 mg/dL (75-100) 01/10/22 04:19 Calcium 8.4 mg/dL (8.4-10.2) 01/10/22 04:19 Total Bilirubin 0.80 mg/dL (0.1-1.2) 01/10/22 04:19 AST 19 units/L (5-40) 01/10/22 04:19 ALT 11 units/L (7-56) 01/10/22 04:19 Alkaline Phosphatase 101 units/L (35-129) 01/10/22 04:19 Total Creatine Kinase 98 units/L (55-170) 01/08/22 23:17 CK-MB (CK-2) 3.1 ng/mL (0.0-4.0) 01/08/22 23:17 CK-MB (CK-2) Rel Index 3.1 (0-4) 01/08/22 23:17 Troponin T < 0.010 ng/mL (0.00-0.029) 01/09/22 23:38 NT-Pro-B Natriuret Pep 14512 pg/mL (0-900) H 01/08/22 23:17 Total Protein 7.0 g/dL (6.3-8.2) 01/10/22 04:19 Albumin 3.2 g/dL (3.9-5) L 01/10/22 04:19 Albumin/Globulin Ratio 0.8 % 01/10/22 04:19 Lipase 29 units/L (13-60) 01/08/22 23:17 Urine Color Dark yellow (Yellow) 01/08/22 Unknown Urine Turbidity Clear (Clear) 01/08/22 Unknown Urine pH 5.0 (5.0-7.0) 01/08/22 Unknown Ur Specific [place] 1.035 (1.003-1.030) H 01/08/22 Unknown Urine Protein 100 mg/dl mg/dL (Negative) 01/08/22 Unknown Urine Glucose (UA) Negative mg/dL (Negative) 01/08/22 Unknown Urine Ketones Negative mg/dL (Negative) 01/08/22 Unknown Urine Blood Trace (Negative) 01/08/22 Unknown Urine Nitrite Neg (Negative) 01/08/22 Unknown Ur Reducing Substances Not Reportable 01/08/22 Unknown Urine Bilirubin Negative (Negative) 01/08/22 Unknown Urine Ictotest Not Reportable 01/08/22 Unknown Urine Urobilinogen < 2.0 mg/dL (<2.0) 01/08/22 Unknown Ur Leukocyte Esterase Neg (Negative) 01/08/22 Unknown Urine WBC (Auto) 1.0 /HPF (0.0-6.0) 01/08/22 Unknown Urine RBC (Auto) 8.0 /HPF (0.0-6.0) 01/08/22 Unknown U Epithel Cells (Auto) 2.0 /HPF (0-13.0) 01/08/22 Unknown Urine Mucus Few /HPF 01/08/22 Unknown Collins/IV: Voiding Method Urinal Active Medications - Current Medications Current Medications: Generic Name Dose Route Start Last Admin Trade Name Freq PRN Reason Stop Dose Admin Acetaminophen 650 mg 01/09/22 17:23 Acetaminophen 325 Mg Tab PO Q4H PRN Pain MILD(1-3)/Fever >100.5/PLASENCIA Furosemide 40 mg 01/09/22 18:00 01/10/22 07:50 Furosemide 40 Mg/4 Ml Inj IV 40 mg 0600,1800 SARITA Administration Heparin Sodium (Porcine) 5,000 unit 01/09/22 22:00 01/09/22 23:17 Heparin 5,000 Unit/1 Ml Vial SUB-Q 5,000 unit Q12HR SARITA Administration Hydromorphone HCl 0.5 mg 01/09/22 17:23 Hydromorphone 1 Mg/1 Ml Inj IV Q3H PRN Pain , Severe (7-10) Ondansetron HCl 4 mg 01/09/22 17:23 Ondansetron 4 Mg/2 Ml Inj IV Q8H PRN Nausea And Vomiting Oxycodone/Acetaminophen 1 tab 01/09/22 17:23 Oxycodone /Acetaminophen 5-325mg Tab PO Q6H PRN Pain, Moderate (4-6) Sodium Chloride 10 ml 01/09/22 22:00 01/09/22 23:18 Sodium Chloride 0.9% 10 Ml Flush Syringe IV 10 ml BID SARITA Administration Sodium Chloride 10 ml 01/09/22 17:23 Sodium Chloride 0.9% 10 Ml Flush Syringe IV PRN PRN LINE FLUSH Spironolactone 25 mg 01/09/22 22:00 01/09/22 23:17 Spironolactone 25 Mg Tab PO 25 mg BID SARITA Administration
--- NOTE | 2022-01-10 13:11 | Consultation ---
History of Present Illness Consult date: 01/10/22 Consult reason: shortness of breath History of present illness: The patient is a 66-year-old man who is Mongolian-speaking, with resultant poor communication. He presented to the hospital at this time with complaints of shortness of breath and fatigue. There was also some abdominal pain. There was no chest pain or angina. Work-up in the hospital so far: ECG showed normal sinus rhythm with left ventricular hypertrophy, no acute ischemic changes. Serial troponin levels x4 were negative. A chest x-ray as reported by the radio logist shows changes of very mild interstitial edema. Cardiology consultation was requested for further assessment of possible heart failure. I reviewed the patient's prior records which show that a year ago, August 2020 he was hospitalized with a Covid infection, echocardiogram done at that time was reported by us to show a left ventricular ejection fraction of 45%, with significant valvular disease. There was mild aortic stenosis with peak gradient of 8.6. Most significantly, there was severe mitral valve prolapse with severe mitral regurgitation. A cardiology consultation was not requested during that admission, and it is unclear if the patient had any further follow-up. He currently appears comfortable, on bedrest, denies any chest pain or shortness of breath at this time. Past History Past Medical History: hypertension, other (Valvular heart disease as described on echocardiogram August 2020) Medications and Allergies Allergies Allergy/AdvReac Type Severity Reaction Status Date / Time No Known Allergies Allergy Unverified 08/25/20 10:28 Home Medications Medication Instructions Recorded Confirmed Last Taken Type Ascorbic Acid [Vitamin C] 1,000 mg PO BID #60 tablet 08/30/20 01/10/22 01/04/22 09:00 Rx Fluticasone/Salmeterol [Advair 1 puff IH BID #1 disk.w.dev 08/30/20 01/10/22 01/05/22 20:00 Rx Diskus 100-50 mcg] Zinc Sulfate 220 mg PO QDAY #30 capsule 08/30/20 01/10/22 01/04/22 09:00 Rx Dexamethasone [Decadron] 6 mg PO DAILY #2 tablet 09/07/20 01/10/22 01/04/22 09:00 Rx Furosemide [Lasix TAB] 40 mg PO QDAY #60 tablet 09/07/20 01/10/22 01/04/22 09:00 Rx Metoprolol [Lopressor TAB] 25 mg PO BID #60 tablet 09/07/20 01/10/22 01/04/22 09:00 Rx lisinopriL [Zestril TAB] 10 mg PO QDAY #30 tablet 09/07/20 01/10/22 01/04/22 09:00 Rx Active Meds: Active Medications Acetaminophen (Acetaminophen 325 Mg Tab) 650 mg PO Q4H PRN PRN Reason: Pain MILD(1-3)/Fever >100.5/PLASENCIA Furosemide (Furosemide 40 Mg/4 Ml Inj) 40 mg IV 0600,1800 [facility] Last Admin: 01/10/22 07:50 Dose: 40 mg Heparin Sodium (Porcine) (Heparin 5,000 Unit/1 Ml Vial) 5,000 unit SUB-Q Q12HR [facility] Last Admin: 01/09/22 23:17 Dose: 5,000 unit Hydromorphone HCl (Hydromorphone 1 Mg/1 Ml Inj) 0.5 mg IV Q3H PRN PRN Reason: Pain , Severe (7-10) Ondansetron HCl (Ondansetron 4 Mg/2 Ml Inj) 4 mg IV Q8H PRN PRN Reason: Nausea And Vomiting Oxycodone/Acetaminophen (Oxycodone /Acetaminophen 5-325mg Tab) 1 tab PO Q6H PRN PRN Reason: Pain, Moderate (4-6) Sodium Chloride (Sodium Chloride 0.9% 10 Ml Flush Syringe) 10 ml IV BID [facility] Last Admin: 01/09/22 23:18 Dose: 10 ml Sodium Chloride (Sodium Chloride 0.9% 10 Ml Flush Syringe) 10 ml IV PRN PRN PRN Reason: LINE FLUSH Spironolactone (Spironolactone 25 Mg Tab) 25 mg PO BID [facility] Last Admin: 01/09/22 23:17 Dose: 25 mg Review of Systems Cardiovascular: shortness of breath, no chest pain, no orthopnea, no palpitatio ns, no rapid/irregular heart beat, no edema, no syncope, no lightheadedness Physical Examination Vital Signs Temp Pulse Resp BP Pulse Ox 99.6 F 95 H 18 144/99 95 01/08/22 20:11 01/08/22 20:11 01/08/22 20:11 01/08/22 20:11 01/08/22 20:11 General appearance: no acute distress HEENT: Positive: PERRL Neck: Positive: neck supple Cardiac: Positive: Reg Rate and Rhythm, Systolic Murmur Lungs: Positive: Decreased Breath Sounds Neuro: Positive: Grossly Intact Abdomen: Positive: Soft Male genitourinary: Positive: deferred Skin: Positive: Clear Extremities: Absent: edema Results 01/10/22 04:19 01/10/22 04:19 Cardiac Enzymes 01/10/22 Range/Units 04:19 AST 19 (5-40) units/L CBC 01/10/22 Range/Units 04:19 WBC 8.6 (4.5-11.0) K/mm3 RBC 4.94 (3.65-5.03) M/mm3 Hgb 11.9 (11.8-15.2) gm/dl Hct 38.0 (35.5-45.6) % Plt Count 221 (140-440) K/mm3 Lymph # (Auto) 1.1 L (1.2-5.4) K/mm3 [place] # (Auto) 1.2 H (0.0-0.8) K/mm3 Eos # (Auto) 0.1 (0.0-0.4) K/mm3 Baso # (Auto) 0.1 (0.0-0.1) K/mm3 Comprehensive Metabolic Panel 01/10/22 Range/Units 04:19 Sodium 136 L (137-145) mmol/L Potassium 3.6 (3.6-5.0) mmol/L Chloride 98.2 (98-107) mmol/L Carbon Dioxide 28 (22-30) mmol/L BUN 20 (9-20) mg/dL Creatinine 0.8 (0.8-1.3) mg/dL Glucose 93 (75-100) mg/dL Calcium 8.4 (8.4-10.2) mg/dL AST 19 (5-40) units/L ALT 11 (7-56) units/L Alkaline Phosphatase 101 (35-129) units/L Total Protein 7.0 (6.3-8.2) g/dL Albumin 3.2 L (3.9-5) g/dL EKG interpretations - Telemetry EKG Rhythm: Sinus Rhythm Assessment and Plan - Patient Problems (1) CHF (congestive heart failure) Current Visit: Yes Status: Acute Qualifiers: Plan to address problem: Patient presents with shortness of breath and radiologic evidence of mild interstitial edema. Previous echocardiogram a year ago reported the presence of severe mitral valve prolapse with severe mitral regurgitation, no apparent subsequent follow-up and management of this lesion. In addition to diuretic and afterload therapy, an echocardiogram will be reordered for further assessment of his valvular disease. Further cardiac evaluation and management will depend on clinical course.
[2022-01-10] MEDS: SPIRONOLACTONE 25 MG TAB PO SCH ×2 (13:28→21:00)
[2022-01-10] MEDS: HEPARIN 5,000 UNIT/1 ML VIAL SUB-Q SCH ×2 (13:30→21:02)
[2022-01-10] MEDS: ACETAMINOPHEN 325 MG TAB PO PRN (20:56)
[2022-01-11] MEDS: FUROSEMIDE 40 MG/4 ML INJ IV SCH ×2 (05:49→17:37)
--- NOTE | 2022-01-11 08:03 | Progress Note ---
Assessment and Plan - Patient Problems (1) CHF (congestive heart failure) Current Visit: Yes Status: Acute Qualifiers: Plan to address problem: Patient presents with shortness of breath and radiologic evidence of mild interstitial edema. Previous echocardiogram a year ago reported the presence of severe mitral valve prolapse with severe mitral regurgitation, no apparent subsequent follow-up or management of this lesion. Echocardiogram is pending for further reassessment of mitral valve disease. Further cardiac management will depend on clinical course. Subjective Date of service: 01/11/22 Principal diagnosis: Congestive heart failure Interval history: Patient is comfortable, no acute distress, shortness of breath has improved with medical management. Objective Vital Signs Temp Pulse Resp BP Pulse Ox 01/11/22 03:54 98.3 F 81 18 114/73 98 01/11/22 00:00 78 01/10/22 23:31 98.0 F 89 18 126/76 99 01/10/22 21:00 94 H 137/93 01/10/22 20:56 17 01/10/22 20:00 18 96 01/10/22 19:29 101.0 F H 94 H 18 137/93 99 01/10/22 15:32 97.9 F 89 18 136/93 98 01/10/22 13:28 93 H 136/89 01/10/22 08:43 97.9 F 92 H 16 138/91 91 - Physical Examination General: No Apparent Distress HEENT: Positive: PERRL Neck: Positive: neck supple Cardiac: Positive: Reg Rate and Rhythm, Systolic Murmur Lungs: Positive: Decreased Breath Sounds Neuro: Positive: Grossly Intact Abdomen: Positive: Soft Skin: Positive: Clear Extremities: Absent: edema - Imaging and Cardiology EKG: report reviewed (Sinus rhythm no acute ST-T wave changes)
--- NOTE | 2022-01-11 08:41 | Progress Note ---
Assessment and Plan Assessment and plan: -- Acute exacerbation of chronic systolic CHF (congestive heart failure) Current Visit: Yes Status: Acute EF 45% in 2019 Follow echocardiogram for ejection fraction, wall motion abnormalities and valve function Daily intake and output, Antifailure medications Input output monitoring, daily weights --History of severe mitral valve prolapse Severe mitral regurgitation Current Visit: Yes Status: Chronic Management per cardiology - Acute coronary syndrome Current Visit: Yes Status: Acute Chest pain rule out [place] work-up Lexiscan canceled per cardiology Continue current management --Hypertension Current Visit: Yes Status: Chronic Continue antihypertensives and adjust medications --COPD (chronic obstructive pulmonary disease) Current Visit: Yes Status: Chronic Duo nebs on a as needed basis and --DVT prophylaxis Current Visit: Yes Status: Acute Heparin and GI prophylaxis --Advance care planning Current Visit: Yes Status: Acute Disease education conducted, care plan discussed, diagnosis discussed, prognosis discussed. Patient is full code. Patient acknowledges understanding and agreement with care plan. +30 minutes. Closely monitor the patient and adjust management as needed Cardiology evaluation recommendation noted and appreciated Plan of care reviewed with the patient and his nurse History Interval history: I have seen and examined the patient at the bedside Patient's chart and medications reviewed Patient feels slightly better No new complaints vital signs reviewed Hospitalist Physical - Constitutional Vitals: Temp Pulse Resp BP Pulse Ox 98.4 F 81 18 140/94 100 01/11/22 07:59 01/11/22 07:59 01/11/22 07:59 01/11/22 07:59 01/11/22 07:59 General appearance: Present: no acute distress, well-nourished - EENT Eyes: Present: PERRL, EOM intact - Neck Neck: Present: supple, normal ROM - Respiratory Respiratory effort: normal Respiratory: bilateral: diminished, negative: rales, rhonchi, wheezing - Cardiovascular Rhythm: regular Heart Sounds: Present: S1 & S2 - Extremities Extremities: no ischemia, No edema - Abdominal General gastrointestinal: soft, non-tender, non-distended, normal bowel sounds - Integumentary Integumentary: Present: clear, warm - Psychiatric Psychiatric: appropriate mood/affect, cooperative - Neurologic Neurologic: CNII-XII intact, moves all extremities HEART Score - HEART Score EKG: Non-specific Age: > 65 Risk factors: 1-2 risk factors Troponin: Troponin T < 0.010 ng/mL (0.00-0.029) 01/09/22 23:38 Troponin: < normal limit - Critical Actions Critical Actions: 4-6 pts:12-16.6% risk of adverse cardiac event. Should be admitted Results - Labs CBC & Chem 7: 01/10/22 04:19 01/10/22 04:19 Labs: Laboratory Last Values WBC 8.6 K/mm3 (4.5-11.0) 01/10/22 04:19 RBC 4.94 M/mm3 (3.65-5.03) 01/10/22 04:19 Hgb 11.9 gm/dl (11.8-15.2) 01/10/22 04:19 Hct 38.0 % (35.5-45.6) 01/10/22 04:19 MCV 77 fl (84-94) L 01/10/22 04:19 MCH 24 pg (28-32) L 01/10/22 04:19 MCHC 31 % (32-34) L 01/10/22 04:19 RDW 23.5 % (13.2-15.2) H 01/10/22 04:19 Plt Count 221 K/mm3 (140-440) 01/10/22 04:19 Lymph % (Auto) 12.5 % (13.4-35.0) L 01/10/22 04:19 [place] % (Auto) 13.4 % (0.0-7.3) H 01/10/22 04:19 Eos % (Auto) 1.3 % (0.0-4.3) 01/10/22 04:19 Baso % (Auto) 1.0 % (0.0-1.8) 01/10/22 04:19 Lymph # (Auto) 1.1 K/mm3 (1.2-5.4) L 01/10/22 04:19 [place] # (Auto) 1.2 K/mm3 (0.0-0.8) H 01/10/22 04:19 Eos # (Auto) 0.1 K/mm3 (0.0-0.4) 01/10/22 04:19 Baso # (Auto) 0.1 K/mm3 (0.0-0.1) 01/10/22 04:19 Seg Neutrophils % 71.8 % (40.0-70.0) H 01/10/22 04:19 Seg Neutrophils # 6.2 K/mm3 (1.8-7.7) 01/10/22 04:19 PT 14.9 Sec. (12.2-14.9) 01/08/22 23:17 INR 1.05 (0.87-1.13) 01/08/22 23:17 Sodium 136 mmol/L (137-145) L 01/10/22 04:19 Potassium 3.6 mmol/L (3.6-5.0) 01/10/22 04:19 Chloride 98.2 mmol/L (98-107) 01/10/22 04:19 Carbon Dioxide 28 mmol/L (22-30) 01/10/22 04:19 Anion Gap 13 mmol/L 01/10/22 04:19 BUN 20 mg/dL (9-20) 01/10/22 04:19 Creatinine 0.8 mg/dL (0.8-1.3) 01/10/22 04:19 Estimated GFR > 60 ml/min 01/10/22 04:19 BUN/Creatinine Ratio 25 % 01/10/22 04:19 Glucose 93 mg/dL (75-100) 01/10/22 04:19 Calcium 8.4 mg/dL (8.4-10.2) 01/10/22 04:19 Total Bilirubin 0.80 mg/dL (0.1-1.2) 01/10/22 04:19 AST 19 units/L (5-40) 01/10/22 04:19 ALT 11 units/L (7-56) 01/10/22 04:19 Alkaline Phosphatase 101 units/L (35-129) 01/10/22 04:19 Total Creatine Kinase 98 units/L (55-170) 01/08/22 23:17 CK-MB (CK-2) 3.1 ng/mL (0.0-4.0) 01/08/22 23:17 CK-MB (CK-2) Rel Index 3.1 (0-4) 01/08/22 23:17 Troponin T < 0.010 ng/mL (0.00-0.029) 01/09/22 23:38 NT-Pro-B Natriuret Pep 86747 pg/mL (0-900) H 01/08/22 23:17 Total Protein 7.0 g/dL (6.3-8.2) 01/10/22 04:19 Albumin 3.2 g/dL (3.9-5) L 01/10/22 04:19 Albumin/Globulin Ratio 0.8 % 01/10/22 04:19 Lipase 29 units/L (13-60) 01/08/22 23:17 Urine Color Dark yellow (Yellow) 01/08/22 Unknown Urine Turbidity Clear (Clear) 01/08/22 Unknown Urine pH 5.0 (5.0-7.0) 01/08/22 Unknown Ur Specific [place] 1.035 (1.003-1.030) H 01/08/22 Unknown Urine Protein 100 mg/dl mg/dL (Negative) 01/08/22 Unknown Urine Glucose (UA) Negative mg/dL (Negative) 01/08/22 Unknown Urine Ketones Negative mg/dL (Negative) 01/08/22 Unknown Urine Blood Trace (Negative) 01/08/22 Unknown Urine Nitrite Neg (Negative) 01/08/22 Unknown Ur Reducing Substances Not Reportable 01/08/22 Unknown Urine Bilirubin Negative (Negative) 01/08/22 Unknown Urine Ictotest Not Reportable 01/08/22 Unknown Urine Urobilinogen < 2.0 mg/dL (<2.0) 01/08/22 Unknown Ur Leukocyte Esterase Neg (Negative) 01/08/22 Unknown Urine WBC (Auto) 1.0 /HPF (0.0-6.0) 01/08/22 Unknown Urine RBC (Auto) 8.0 /HPF (0.0-6.0) 01/08/22 Unknown U Epithel Cells (Auto) 2.0 /HPF (0-13.0) 01/08/22 Unknown Urine Mucus Few /HPF 01/08/22 Unknown Collins/IV: Voiding Method Urinal Active Medications - Current Medications Current Medications: Generic Name Dose Route Start Last Admin Trade Name Freq PRN Reason Stop Dose Admin Acetaminophen 650 mg 01/09/22 17:23 01/10/22 20:56 Acetaminophen 325 Mg Tab PO 650 mg Q4H PRN Administration Pain MILD(1-3)/Fever >100.5/PLASENCIA Furosemide 40 mg 01/09/22 18:00 01/11/22 05:49 Furosemide 40 Mg/4 Ml Inj IV 40 mg 0600,1800 SARITA Administration Heparin Sodium (Porcine) 5,000 unit 01/09/22 22:00 01/10/22 21:02 Heparin 5,000 Unit/1 Ml Vial SUB-Q 5,000 unit Q12HR SARITA Administration Hydromorphone HCl 0.5 mg 01/09/22 17:23 Hydromorphone 1 Mg/1 Ml Inj IV Q3H PRN Pain , Severe (7-10) Ondansetron HCl 4 mg 01/09/22 17:23 Ondansetron 4 Mg/2 Ml Inj IV Q8H PRN Nausea And Vomiting Oxycodone/Acetaminophen 1 tab 01/09/22 17:23 Oxycodone /Acetaminophen 5-325mg Tab PO Q6H PRN Pain, Moderate (4-6) Sodium Chloride 10 ml 01/09/22 22:00 01/10/22 20:59 Sodium Chloride 0.9% 10 Ml Flush Syringe IV 10 ml BID SARITA Administration Sodium Chloride 10 ml 01/09/22 17:23 Sodium Chloride 0.9% 10 Ml Flush Syringe IV PRN PRN LINE FLUSH Spironolactone 25 mg 01/09/22 22:00 01/10/22 21:00 Spironolactone 25 Mg Tab PO 25 mg BID SARITA Administration
[2022-01-11] MEDS: SPIRONOLACTONE 25 MG TAB PO SCH ×2 (09:45→21:03)
[2022-01-11] MEDS: HEPARIN 5,000 UNIT/1 ML VIAL SUB-Q SCH ×2 (09:49→21:02)
[2022-01-11] MEDS: HYDROmorphone 1 MG/1 ML INJ IV PRN (20:27)
[2022-01-12] MEDS: FUROSEMIDE 40 MG/4 ML INJ IV SCH ×2 (05:53→17:48)
[2022-01-12] MEDS: HEPARIN 5,000 UNIT/1 ML VIAL SUB-Q SCH ×2 (09:01→23:47)
[2022-01-12] MEDS: SPIRONOLACTONE 25 MG TAB PO SCH ×2 (09:01→23:46)
--- NOTE | 2022-01-12 10:05 | Progress Note ---
Assessment and Plan - Patient Problems (1) CHF (congestive heart failure) Current Visit: Yes Status: Acute Qualifiers: Plan to address problem: Patient presents with shortness of breath and radiologic evidence of mild interstitial edema. Previous echocardiogram a year ago reported the presence of severe mitral valve prolapse with severe mitral regurgitation, no apparent subsequent follow-up or management of this lesion. Echocardiogram demonstrated four-chamber cardiomyopathy, left ventricular ejection fraction 30%, moderate to severe mitral regurgitation and mild aortic stenosis. Further cardiac management will depend on clinical course. Subjective Date of service: 01/12/22 Principal diagnosis: Congestive heart failure Interval history: Patient is comfortable, no acute respiratory distress. Echocardiogram demonstrated four-chamber cardiomyopathy, left ventricular ejection fraction 30%, moderate to severe mitral regurgitation and mild aortic stenosis. Objective Vital Signs Temp Pulse Pulse Resp BP Pulse Ox 01/12/22 09:01 84 136/91 01/12/22 08:01 98.1 F 84 136/91 98 01/12/22 04:00 82 01/12/22 03:42 97.6 F 84 18 140/92 98 01/11/22 23:08 99.1 F 85 16 139/91 98 01/11/22 20:00 83 85 18 98 01/11/22 19:17 97.3 F L 88 16 132/90 99 01/11/22 15:11 98.4 F 85 16 126/87 93 01/11/22 11:38 98.4 F 82 16 127/89 99 - Physical Examination General: No Apparent Distress HEENT: Positive: PERRL Neck: Positive: neck supple Cardiac: Positive: Reg Rate and Rhythm, Systolic Murmur Lungs: Positive: Decreased Breath Sounds Neuro: Positive: Grossly Intact Abdomen: Positive: Soft Skin: Positive: Clear Extremities: Absent: edema - Imaging and Cardiology EKG: report reviewed (Sinus rhythm no acute ST-T wave changes)
--- NOTE | 2022-01-12 17:22 | Progress Note ---
Assessment and Plan Assessment and plan: -- Acute exacerbation of chronic systolic CHF (congestive heart failure) Current Visit: Yes Status: Acute EF 45% in 2020 Continue antifailure medications Daily intake and output, daily weights Cardiology following --Dilated cardiomyopathy; EF 25 to 30% [01/11/2022] Current Visit: Yes Status: Acute Continue antifailure medications Diuretics, beta-blockers, TAMANNA inhibitors, spironolactone Input output monitoring, daily weights, low-sodium diet Fluid retention -History of severe mitral valve prolapse Severe mitral regurgitation Current Visit: Yes Status: Chronic Management per cardiology -- Acute coronary syndrome Current Visit: Yes Status: Acute Chest pain rule out [place] work-up Lexiscan canceled per cardiology Continue current management --Hypertension Current Visit: Yes Status: Chronic Continue antihypertensives and adjust medications --COPD (chronic obstructive pulmonary disease) Current Visit: Yes Status: Chronic Duo nebs on a as needed basis and --DVT prophylaxis Current Visit: Yes Status: Acute Heparin and GI prophylaxis --Advance care planning Current Visit: Yes Status: Acute Disease education conducted, care plan discussed, diagnosis discussed, prognosis discussed. Patient is full code. Patient acknowledges understanding and agreement with care plan. +30 minutes. Closely monitor the patient and adjust management as needed Cardiology evaluation recommendation noted and appreciated Plan of care reviewed with the patient and his nurse 01/12; echocardiogram LVEF 25 to 30%, dilated cardiomyopathy Continue beta-blockers, TAMANNA inhibitors, diuretics, spironolactone Cardiology following History Interval history: I seen and examined the patient at the bedside Patient's chart and medications reviewed Patient feels slightly better still has some mild shortness of breath Denies chest pain, vital signs reviewed Hospitalist Physical - Constitutional Vitals: Temp Pulse Resp BP Pulse Ox 98.6 F 82 18 104/69 98 01/12/22 11:24 01/12/22 11:24 01/12/22 03:42 01/12/22 11:24 01/12/22 12:00 General appearance: Present: mild distress, well-nourished - EENT Eyes: Present: PERRL, EOM intact - Neck Neck: Present: supple, normal ROM - Respiratory Respiratory effort: normal Respiratory: bilateral: diminished, rales, negative: rhonchi, wheezing - Cardiovascular Rhythm: regular Heart Sounds: Present: S1 & S2 - Extremities Extremities: no ischemia, No edema - Abdominal General gastrointestinal: soft, non-tender, non-distended, normal bowel sounds - Integumentary Integumentary: Present: clear, warm - Psychiatric Psychiatric: appropriate mood/affect, cooperative - Neurologic Neurologic: CNII-XII intact, moves all extremities HEART Score - HEART Score EKG: Non-specific Age: > 65 Risk factors: 1-2 risk factors Troponin: Troponin T < 0.010 ng/mL (0.00-0.029) 01/09/22 23:38 Troponin: < normal limit - Critical Actions Critical Actions: 4-6 pts:12-16.6% risk of adverse cardiac event. Should be admitted Results - Labs CBC & Chem 7: 01/10/22 04:19 01/10/22 04:19 Labs: Laboratory Last Values WBC 8.6 K/mm3 (4.5-11.0) 01/10/22 04:19 RBC 4.94 M/mm3 (3.65-5.03) 01/10/22 04:19 Hgb 11.9 gm/dl (11.8-15.2) 01/10/22 04:19 Hct 38.0 % (35.5-45.6) 01/10/22 04:19 MCV 77 fl (84-94) L 01/10/22 04:19 MCH 24 pg (28-32) L 01/10/22 04:19 MCHC 31 % (32-34) L 01/10/22 04:19 RDW 23.5 % (13.2-15.2) H 01/10/22 04:19 Plt Count 221 K/mm3 (140-440) 01/10/22 04:19 Lymph % (Auto) 12.5 % (13.4-35.0) L 01/10/22 04:19 [place] % (Auto) 13.4 % (0.0-7.3) H 01/10/22 04:19 Eos % (Auto) 1.3 % (0.0-4.3) 01/10/22 04:19 Baso % (Auto) 1.0 % (0.0-1.8) 01/10/22 04:19 Lymph # (Auto) 1.1 K/mm3 (1.2-5.4) L 01/10/22 04:19 [place] # (Auto) 1.2 K/mm3 (0.0-0.8) H 01/10/22 04:19 Eos # (Auto) 0.1 K/mm3 (0.0-0.4) 01/10/22 04:19 Baso # (Auto) 0.1 K/mm3 (0.0-0.1) 01/10/22 04:19 Seg Neutrophils % 71.8 % (40.0-70.0) H 01/10/22 04:19 Seg Neutrophils # 6.2 K/mm3 (1.8-7.7) 01/10/22 04:19 PT 14.9 Sec. (12.2-14.9) 01/08/22 23:17 INR 1.05 (0.87-1.13) 01/08/22 23:17 Sodium 136 mmol/L (137-145) L 01/10/22 04:19 Potassium 3.6 mmol/L (3.6-5.0) 01/10/22 04:19 Chloride 98.2 mmol/L (98-107) 01/10/22 04:19 Carbon Dioxide 28 mmol/L (22-30) 01/10/22 04:19 Anion Gap 13 mmol/L 01/10/22 04:19 BUN 20 mg/dL (9-20) 01/10/22 04:19 Creatinine 0.8 mg/dL (0.8-1.3) 01/10/22 04:19 Estimated GFR > 60 ml/min 01/10/22 04:19 BUN/Creatinine Ratio 25 % 01/10/22 04:19 Glucose 93 mg/dL (75-100) 01/10/22 04:19 Calcium 8.4 mg/dL (8.4-10.2) 01/10/22 04:19 Total Bilirubin 0.80 mg/dL (0.1-1.2) 01/10/22 04:19 AST 19 units/L (5-40) 01/10/22 04:19 ALT 11 units/L (7-56) 01/10/22 04:19 Alkaline Phosphatase 101 units/L (35-129) 01/10/22 04:19 Total Creatine Kinase 98 units/L (55-170) 01/08/22 23:17 CK-MB (CK-2) 3.1 ng/mL (0.0-4.0) 01/08/22 23:17 CK-MB (CK-2) Rel Index 3.1 (0-4) 01/08/22 23:17 Troponin T < 0.010 ng/mL (0.00-0.029) 01/09/22 23:38 NT-Pro-B Natriuret Pep 74738 pg/mL (0-900) H 01/08/22 23:17 Total Protein 7.0 g/dL (6.3-8.2) 01/10/22 04:19 Albumin 3.2 g/dL (3.9-5) L 01/10/22 04:19 Albumin/Globulin Ratio 0.8 % 01/10/22 04:19 Lipase 29 units/L (13-60) 01/08/22 23:17 Urine Color Dark yellow (Yellow) 01/08/22 Unknown Urine Turbidity Clear (Clear) 01/08/22 Unknown Urine pH 5.0 (5.0-7.0) 01/08/22 Unknown Ur Specific [place] 1.035 (1.003-1.030) H 01/08/22 Unknown Urine Protein 100 mg/dl mg/dL (Negative) 01/08/22 Unknown Urine Glucose (UA) Negative mg/dL (Negative) 01/08/22 Unknown Urine Ketones Negative mg/dL (Negative) 01/08/22 Unknown Urine Blood Trace (Negative) 01/08/22 Unknown Urine Nitrite Neg (Negative) 01/08/22 Unknown Ur Reducing Substances Not Reportable 01/08/22 Unknown Urine Bilirubin Negative (Negative) 01/08/22 Unknown Urine Ictotest Not Reportable 01/08/22 Unknown Urine Urobilinogen < 2.0 mg/dL (<2.0) 01/08/22 Unknown Ur Leukocyte Esterase Neg (Negative) 01/08/22 Unknown Urine WBC (Auto) 1.0 /HPF (0.0-6.0) 01/08/22 Unknown Urine RBC (Auto) 8.0 /HPF (0.0-6.0) 01/08/22 Unknown U Epithel Cells (Auto) 2.0 /HPF (0-13.0) 01/08/22 Unknown Urine Mucus Few /HPF 01/08/22 Unknown Collins/IV: Voiding Method Urinal Active Medications - Current Medications Current Medications: Generic Name Dose Route Start Last Admin Trade Name Freq PRN Reason Stop Dose Admin Acetaminophen 650 mg 01/09/22 17:23 01/10/22 20:56 Acetaminophen 325 Mg Tab PO 650 mg Q4H PRN Administration Pain MILD(1-3)/Fever >100.5/PLASENCIA Furosemide 40 mg 01/09/22 18:00 01/12/22 05:53 Furosemide 40 Mg/4 Ml Inj IV 40 mg 0600,1800 SARITA Administration Heparin Sodium (Porcine) 5,000 unit 01/09/22 22:00 01/12/22 09:01 Heparin 5,000 Unit/1 Ml Vial SUB-Q 5,000 unit Q12HR SARITA Administration Hydromorphone HCl 0.5 mg 01/09/22 17:23 01/11/22 20:27 Hydromorphone 1 Mg/1 Ml Inj IV 0.5 mg Q3H PRN Administration Pain , Severe (7-10) Ondansetron HCl 4 mg 01/09/22 17:23 Ondansetron 4 Mg/2 Ml Inj IV Q8H PRN Nausea And Vomiting Oxycodone/Acetaminophen 1 tab 01/09/22 17:23 01/12/22 06:01 Oxycodone /Acetaminophen 5-325mg Tab PO 1 tab Q6H PRN Administration Pain, Moderate (4-6) Sodium Chloride 10 ml 01/09/22 22:00 01/12/22 09:47 Sodium Chloride 0.9% 10 Ml Flush Syringe IV 10 ml BID SARITA Administration Sodium Chloride 10 ml 01/09/22 17:23 Sodium Chloride 0.9% 10 Ml Flush Syringe IV PRN PRN LINE FLUSH Spironolactone 25 mg 01/09/22 22:00 01/12/22 09:01 Spironolactone 25 Mg Tab PO 25 mg BID SARITA Administration
[2022-01-12] MEDS: carvediloL 3.125 MG TAB PO SCH (23:48)
[2022-01-13 05:25] LABS: BUN/Creatinine Ratio 31; Blood Urea Nitrogen 25 mg/dL (9-20); Calcium 8.8 mg/dL (8.4-10.2); Hemolysis Index 5
[2022-01-13] MEDS: FUROSEMIDE 40 MG/4 ML INJ IV SCH ×2 (06:25→18:31)
[2022-01-13] MEDS: HEPARIN 5,000 UNIT/1 ML VIAL SUB-Q SCH ×2 (10:25→22:03)
[2022-01-13] MEDS: SPIRONOLACTONE 25 MG TAB PO SCH ×2 (10:25→22:07)
[2022-01-13] MEDS: carvediloL 3.125 MG TAB PO SCH ×2 (10:25→22:07)
[2022-01-13] MEDS: LISINOPRIL 5 MG TAB PO SCH (10:25)
--- NOTE | 2022-01-13 12:15 | Progress Note ---
Assessment and Plan - Patient Problems (1) CHF (congestive heart failure) Current Visit: Yes Status: Acute Qualifiers: Plan to address problem: Patient presents with shortness of breath and radiologic evidence of mild interstitial edema. Previous echocardiogram a year ago reported the presence of severe mitral valve prolapse with severe mitral regurgitation, no apparent subsequent follow-up or management of this lesion. Echocardiogram demonstrated four-chamber cardiomyopathy, left ventricular ejection fraction 30%, moderate to severe mitral regurgitation and mild aortic stenosis. Further cardiac management will depend on clinical course. Subjective Date of service: 01/13/22 Principal diagnosis: Congestive heart failure Interval history: Patient is comfortable, no cardiac complaints reported. No new cardiac events. Objective Vital Signs Temp Pulse Pulse Resp BP BP Pulse Ox 01/13/22 11:54 88 18 97 01/13/22 08:55 98.9 F 83 16 117/81 99 01/13/22 04:12 98.8 F 78 16 121/81 90 01/13/22 01:42 97 01/13/22 00:28 98.2 F 82 22 132/89 97 01/12/22 23:48 86 01/12/22 23:46 134/92 01/12/22 19:51 98.0 F 89 24 134/92 100 01/12/22 17:44 98.3 F 82 20 124/87 95 01/12/22 16:00 64 - Physical Examination General: No Apparent Distress HEENT: Positive: PERRL Neck: Positive: neck supple Cardiac: Positive: Reg Rate and Rhythm, Systolic Murmur Lungs: Positive: clear to auscultation Neuro: Positive: Grossly Intact Abdomen: Positive: Soft Skin: Positive: Clear Extremities: Absent: edema - Labs and Meds Comprehensive Metabolic Panel 01/13/22 Range/Units 04:17 Sodium 140 (137-145) mmol/L Potassium 3.7 (3.6-5.0) mmol/L Chloride 98.6 (98-107) mmol/L Carbon Dioxide 32 H (22-30) mmol/L BUN 25 H (9-20) mg/dL Creatinine 0.8 (0.8-1.3) mg/dL Glucose 104 H (75-100) mg/dL Calcium 8.8 (8.4-10.2) mg/dL - Imaging and Cardiology EKG: report reviewed (Sinus rhythm no acute ST-T wave changes)
--- NOTE | 2022-01-13 19:38 | Progress Note ---
Assessment and Plan Assessment and plan: -- Acute exacerbation of chronic systolic CHF (congestive heart failure) Current Visit: Yes Status: Acute EF 45% in 2020 Continue antifailure medications Daily intake and output, daily weights Cardiology following --Dilated cardiomyopathy; EF 25 to 30% [01/11/2022] Current Visit: Yes Status: Acute Continue antifailure medications Diuretics, beta-blockers, TAMANNA inhibitors, spironolactone Input output monitoring, daily weights, low-sodium diet Fluid retention -History of severe mitral valve prolapse Severe mitral regurgitation Current Visit: Yes Status: Chronic Management per cardiology -- Acute coronary syndrome Current Visit: Yes Status: Acute Chest pain rule out [place] work-up Lexiscan canceled per cardiology Continue current management --Hypertension Current Visit: Yes Status: Chronic Continue antihypertensives and adjust medications --COPD (chronic obstructive pulmonary disease) Current Visit: Yes Status: Chronic Duo nebs on a as needed basis and --DVT prophylaxis Current Visit: Yes Status: Acute Heparin and GI prophylaxis --Advance care planning Current Visit: Yes Status: Acute Disease education conducted, care plan discussed, diagnosis discussed, prognosis discussed. Patient is full code. Patient acknowledges understanding and agreement with care plan. +30 minutes. Closely monitor the patient and adjust management as needed Cardiology evaluation recommendation noted and appreciated Plan of care reviewed with the patient and his nurse 01/12; echocardiogram LVEF 25 to 30%, dilated cardiomyopathy Continue beta-blockers, TAMANNA inhibitors, diuretics, spironolactone Cardiology following 01/13; cardiology recommendations noted and appreciated Continue antifailure treatment, input output monitoring Hospitalist Physical - Constitutional Vitals: Temp Pulse Resp BP Pulse Ox 98.0 F 76 16 111/72 95 01/13/22 14:41 01/13/22 14:41 01/13/22 14:41 01/13/22 14:41 01/13/22 14:41 General appearance: Present: mild distress, well-nourished HEART Score - HEART Score EKG: Non-specific Age: > 65 Risk factors: 1-2 risk factors Troponin: Troponin T < 0.010 ng/mL (0.00-0.029) 01/09/22 23:38 Troponin: < normal limit - Critical Actions Critical Actions: 4-6 pts:12-16.6% risk of adverse cardiac event. Should be admitted Results - Labs CBC & Chem 7: 01/10/22 04:19 01/13/22 04:17 Labs: Laboratory Last Values WBC 8.6 K/mm3 (4.5-11.0) 01/10/22 04:19 RBC 4.94 M/mm3 (3.65-5.03) 01/10/22 04:19 Hgb 11.9 gm/dl (11.8-15.2) 01/10/22 04:19 Hct 38.0 % (35.5-45.6) 01/10/22 04:19 MCV 77 fl (84-94) L 01/10/22 04:19 MCH 24 pg (28-32) L 01/10/22 04:19 MCHC 31 % (32-34) L 01/10/22 04:19 RDW 23.5 % (13.2-15.2) H 01/10/22 04:19 Plt Count 221 K/mm3 (140-440) 01/10/22 04:19 Lymph % (Auto) 12.5 % (13.4-35.0) L 01/10/22 04:19 [place] % (Auto) 13.4 % (0.0-7.3) H 01/10/22 04:19 Eos % (Auto) 1.3 % (0.0-4.3) 01/10/22 04:19 Baso % (Auto) 1.0 % (0.0-1.8) 01/10/22 04:19 Lymph # (Auto) 1.1 K/mm3 (1.2-5.4) L 01/10/22 04:19 [place] # (Auto) 1.2 K/mm3 (0.0-0.8) H 01/10/22 04:19 Eos # (Auto) 0.1 K/mm3 (0.0-0.4) 01/10/22 04:19 Baso # (Auto) 0.1 K/mm3 (0.0-0.1) 01/10/22 04:19 Seg Neutrophils % 71.8 % (40.0-70.0) H 01/10/22 04:19 Seg Neutrophils # 6.2 K/mm3 (1.8-7.7) 01/10/22 04:19 PT 14.9 Sec. (12.2-14.9) 01/08/22 23:17 INR 1.05 (0.87-1.13) 01/08/22 23:17 Sodium 140 mmol/L (137-145) 01/13/22 04:17 Potassium 3.7 mmol/L (3.6-5.0) 01/13/22 04:17 Chloride 98.6 mmol/L (98-107) 01/13/22 04:17 Carbon Dioxide 32 mmol/L (22-30) H 01/13/22 04:17 Anion Gap 13 mmol/L 01/13/22 04:17 BUN 25 mg/dL (9-20) H 01/13/22 04:17 Creatinine 0.8 mg/dL (0.8-1.3) 01/13/22 04:17 Estimated GFR > 60 ml/min 01/13/22 04:17 BUN/Creatinine Ratio 31 % 01/13/22 04:17 Glucose 104 mg/dL (75-100) H 01/13/22 04:17 Calcium 8.8 mg/dL (8.4-10.2) 01/13/22 04:17 Magnesium 2.00 mg/dL (1.7-2.3) 01/13/22 04:17 Total Bilirubin 0.80 mg/dL (0.1-1.2) 01/10/22 04:19 AST 19 units/L (5-40) 01/10/22 04:19 ALT 11 units/L (7-56) 01/10/22 04:19 Alkaline Phosphatase 101 units/L (35-129) 01/10/22 04:19 Total Creatine Kinase 98 units/L (55-170) 01/08/22 23:17 CK-MB (CK-2) 3.1 ng/mL (0.0-4.0) 01/08/22 23:17 CK-MB (CK-2) Rel Index 3.1 (0-4) 01/08/22 23:17 Troponin T < 0.010 ng/mL (0.00-0.029) 01/09/22 23:38 NT-Pro-B Natriuret Pep 13774 pg/mL (0-900) H 01/08/22 23:17 Total Protein 7.0 g/dL (6.3-8.2) 01/10/22 04:19 Albumin 3.2 g/dL (3.9-5) L 01/10/22 04:19 Albumin/Globulin Ratio 0.8 % 01/10/22 04:19 Lipase 29 units/L (13-60) 01/08/22 23:17 Urine Color Dark yellow (Yellow) 01/08/22 Unknown Urine Turbidity Clear (Clear) 01/08/22 Unknown Urine pH 5.0 (5.0-7.0) 01/08/22 Unknown Ur Specific [place] 1.035 (1.003-1.030) H 01/08/22 Unknown Urine Protein 100 mg/dl mg/dL (Negative) 01/08/22 Unknown Urine Glucose (UA) Negative mg/dL (Negative) 01/08/22 Unknown Urine Ketones Negative mg/dL (Negative) 01/08/22 Unknown Urine Blood Trace (Negative) 01/08/22 Unknown Urine Nitrite Neg (Negative) 01/08/22 Unknown Ur Reducing Substances Not Reportable 01/08/22 Unknown Urine Bilirubin Negative (Negative) 01/08/22 Unknown Urine Ictotest Not Reportable 01/08/22 Unknown Urine Urobilinogen < 2.0 mg/dL (<2.0) 01/08/22 Unknown Ur Leukocyte Esterase Neg (Negative) 01/08/22 Unknown Urine WBC (Auto) 1.0 /HPF (0.0-6.0) 01/08/22 Unknown Urine RBC (Auto) 8.0 /HPF (0.0-6.0) 01/08/22 Unknown U Epithel Cells (Auto) 2.0 /HPF (0-13.0) 01/08/22 Unknown Urine Mucus Few /HPF 01/08/22 Unknown Collins/IV: Voiding Method Urinal Active Medications - Current Medications Current Medications: Generic Name Dose Route Start Last Admin Trade Name Freq PRN Reason Stop Dose Admin Acetaminophen 650 mg 01/09/22 17:23 01/10/22 20:56 Acetaminophen 325 Mg Tab PO 650 mg Q4H PRN Administration Pain MILD(1-3)/Fever >100.5/PLASENCIA Carvedilol 3.125 mg 01/12/22 22:00 01/13/22 10:25 Carvedilol 3.125 Mg Tab PO 3.125 mg BID SARITA Administration Furosemide 40 mg 01/09/22 18:00 01/13/22 18:31 Furosemide 40 Mg/4 Ml Inj IV 40 mg 0600,1800 SARITA Administration Heparin Sodium (Porcine) 5,000 unit 01/09/22 22:00 01/13/22 10:25 Heparin 5,000 Unit/1 Ml Vial SUB-Q 5,000 unit Q12HR SARITA Administration Hydromorphone HCl 0.5 mg 01/09/22 17:23 01/11/22 20:27 Hydromorphone 1 Mg/1 Ml Inj IV 0.5 mg Q3H PRN Administration Pain , Severe (7-10) Lisinopril 2.5 mg 01/13/22 10:00 01/13/22 10:25 Lisinopril 5 Mg Tab PO 2.5 mg QDAY SARITA Administration Ondansetron HCl 4 mg 01/09/22 17:23 Ondansetron 4 Mg/2 Ml Inj IV Q8H PRN Nausea And Vomiting Oxycodone/Acetaminophen 1 tab 01/09/22 17:23 01/12/22 06:01 Oxycodone /Acetaminophen 5-325mg Tab PO 1 tab Q6H PRN Administration Pain, Moderate (4-6) Sodium Chloride 10 ml 01/09/22 22:00 01/13/22 10:26 Sodium Chloride 0.9% 10 Ml Flush Syringe IV 10 ml BID SARITA Administration Sodium Chloride 10 ml 01/09/22 17:23 Sodium Chloride 0.9% 10 Ml Flush Syringe IV PRN PRN LINE FLUSH Spironolactone 25 mg 01/09/22 22:00 01/13/22 10:25 Spironolactone 25 Mg Tab PO 25 mg BID SARITA Administration
[2022-01-14] MEDS: FUROSEMIDE 40 MG/4 ML INJ IV SCH ×2 (08:46→18:54)
[2022-01-14] MEDS: HYDROmorphone 1 MG/1 ML INJ IV PRN ×2 (09:00→13:15)
[2022-01-14] MEDS: HEPARIN 5,000 UNIT/1 ML VIAL SUB-Q SCH ×2 (09:22→21:23)
[2022-01-14] MEDS: LISINOPRIL 5 MG TAB PO SCH (09:22)
[2022-01-14] MEDS: SPIRONOLACTONE 25 MG TAB PO SCH ×2 (09:22→21:23)
[2022-01-14] MEDS: carvediloL 3.125 MG TAB PO SCH ×2 (09:22→21:23)
--- NOTE | 2022-01-14 14:19 | Progress Note ---
Assessment and Plan Assessment and plan: -- Acute exacerbation of chronic systolic CHF (congestive heart failure) Current Visit: Yes Status: Acute EF 45% in 2020, now EF is 25 to 30% Continue antifailure medications Daily intake and output, daily weights Cardiology following --Dilated cardiomyopathy; EF 25 to 30% [01/11/2022] Current Visit: Yes Status: Acute Continue antifailure medications Diuretics, beta-blockers, TAMANNA inhibitors, spironolactone Input output monitoring, daily weights, low-sodium diet Fluid retention -History of severe mitral valve prolapse Severe mitral regurgitation Current Visit: Yes Status: Chronic Management per cardiology -- Acute coronary syndrome Current Visit: Yes Status: Acute Chest pain rule out [place] work-up Lexiscan canceled per cardiology Continue current management --Hypertension Current Visit: Yes Status: Chronic Continue antihypertensives and adjust medications --COPD (chronic obstructive pulmonary disease) Current Visit: Yes Status: Chronic Duo nebs on a as needed basis and --DVT prophylaxis Current Visit: Yes Status: Acute Heparin and GI prophylaxis --Advance care planning Current Visit: Yes Status: Acute Disease education conducted, care plan discussed, diagnosis discussed, prognosis discussed. Patient is full code. Patient acknowledges understanding and agreement with care plan. +30 minutes. Closely monitor the patient and adjust management as needed Cardiology evaluation recommendation noted and appreciated Plan of care reviewed with the patient and his nurse Brief history and daily hospital course; 66-year-old male patient with significant past medical history of hypertension valvular heart disease was admitted through emergency room with worsening shortness of breath and generalized weakness and fatigue. Patient was managed symptomatically with antifailure medications, evaluated by travel occupational therapist, patient has severe cardiomyopathy with EF of 25 to 30% Patient also has severe mitral regurgitation and mitral valve prolapse. Cardiology following. 01/12; echocardiogram LVEF 25 to 30%, dilated cardiomyopathy Continue beta-blockers, TAMANNA inhibitors, diuretics, spironolactone Cardiology following 01/13; cardiology recommendations noted and appreciated Continue antifailure treatment, input output monitoring 01/14; optimize antifailure medications, Disposition ;discharge when medically stable and cleared by cardiology Hospitalist Physical - Constitutional Vitals: Temp Pulse Resp BP Pulse Ox 98.8 F 79 22 102/70 100 01/14/22 12:02 01/14/22 14:12 01/14/22 12:02 01/14/22 12:02 01/14/22 13:00 General appearance: Present: no acute distress, well-nourished - EENT Eyes: Present: PERRL, EOM intact - Neck Neck: Present: supple, normal ROM - Respiratory Respiratory effort: normal Respiratory: bilateral: diminished, rales, negative: rhonchi, wheezing - Cardiovascular Rhythm: regular Heart Sounds: Present: S1 & S2 - Extremities Extremities: no ischemia, No edema - Abdominal General gastrointestinal: soft, non-tender, non-distended, normal bowel sounds - Integumentary Integumentary: Present: clear, warm - Psychiatric Psychiatric: appropriate mood/affect, cooperative - Neurologic Neurologic: CNII-XII intact, moves all extremities HEART Score - HEART Score EKG: Non-specific Age: > 65 Risk factors: 1-2 risk factors Troponin: Troponin T < 0.010 ng/mL (0.00-0.029) 01/09/22 23:38 Troponin: < normal limit - Critical Actions Critical Actions: 4-6 pts:12-16.6% risk of adverse cardiac event. Should be admitted Results - Labs CBC & Chem 7: 01/10/22 04:19 01/13/22 04:17 Labs: Laboratory Last Values WBC 8.6 K/mm3 (4.5-11.0) 01/10/22 04:19 RBC 4.94 M/mm3 (3.65-5.03) 01/10/22 04:19 Hgb 11.9 gm/dl (11.8-15.2) 01/10/22 04:19 Hct 38.0 % (35.5-45.6) 01/10/22 04:19 MCV 77 fl (84-94) L 01/10/22 04:19 MCH 24 pg (28-32) L 01/10/22 04:19 MCHC 31 % (32-34) L 01/10/22 04:19 RDW 23.5 % (13.2-15.2) H 01/10/22 04:19 Plt Count 221 K/mm3 (140-440) 01/10/22 04:19 Lymph % (Auto) 12.5 % (13.4-35.0) L 01/10/22 04:19 [place] % (Auto) 13.4 % (0.0-7.3) H 01/10/22 04:19 Eos % (Auto) 1.3 % (0.0-4.3) 01/10/22 04:19 Baso % (Auto) 1.0 % (0.0-1.8) 01/10/22 04:19 Lymph # (Auto) 1.1 K/mm3 (1.2-5.4) L 01/10/22 04:19 [place] # (Auto) 1.2 K/mm3 (0.0-0.8) H 01/10/22 04:19 Eos # (Auto) 0.1 K/mm3 (0.0-0.4) 01/10/22 04:19 Baso # (Auto) 0.1 K/mm3 (0.0-0.1) 01/10/22 04:19 Seg Neutrophils % 71.8 % (40.0-70.0) H 01/10/22 04:19 Seg Neutrophils # 6.2 K/mm3 (1.8-7.7) 01/10/22 04:19 PT 14.9 Sec. (12.2-14.9) 01/08/22 23:17 INR 1.05 (0.87-1.13) 01/08/22 23:17 Sodium 140 mmol/L (137-145) 01/13/22 04:17 Potassium 3.7 mmol/L (3.6-5.0) 01/13/22 04:17 Chloride 98.6 mmol/L (98-107) 01/13/22 04:17 Carbon Dioxide 32 mmol/L (22-30) H 01/13/22 04:17 Anion Gap 13 mmol/L 01/13/22 04:17 BUN 25 mg/dL (9-20) H 01/13/22 04:17 Creatinine 0.8 mg/dL (0.8-1.3) 01/13/22 04:17 Estimated GFR > 60 ml/min 01/13/22 04:17 BUN/Creatinine Ratio 31 % 01/13/22 04:17 Glucose 104 mg/dL (75-100) H 01/13/22 04:17 Calcium 8.8 mg/dL (8.4-10.2) 01/13/22 04:17 Magnesium 2.00 mg/dL (1.7-2.3) 01/13/22 04:17 Total Bilirubin 0.80 mg/dL (0.1-1.2) 01/10/22 04:19 AST 19 units/L (5-40) 01/10/22 04:19 ALT 11 units/L (7-56) 01/10/22 04:19 Alkaline Phosphatase 101 units/L (35-129) 01/10/22 04:19 Total Creatine Kinase 98 units/L (55-170) 01/08/22 23:17 CK-MB (CK-2) 3.1 ng/mL (0.0-4.0) 01/08/22 23:17 CK-MB (CK-2) Rel Index 3.1 (0-4) 01/08/22 23:17 Troponin T < 0.010 ng/mL (0.00-0.029) 01/09/22 23:38 NT-Pro-B Natriuret Pep 62747 pg/mL (0-900) H 01/08/22 23:17 Total Protein 7.0 g/dL (6.3-8.2) 01/10/22 04:19 Albumin 3.2 g/dL (3.9-5) L 01/10/22 04:19 Albumin/Globulin Ratio 0.8 % 01/10/22 04:19 Lipase 29 units/L (13-60) 01/08/22 23:17 Urine Color Dark yellow (Yellow) 01/08/22 Unknown Urine Turbidity Clear (Clear) 01/08/22 Unknown Urine pH 5.0 (5.0-7.0) 01/08/22 Unknown Ur Specific [place] 1.035 (1.003-1.030) H 01/08/22 Unknown Urine Protein 100 mg/dl mg/dL (Negative) 01/08/22 Unknown Urine Glucose (UA) Negative mg/dL (Negative) 01/08/22 Unknown Urine Ketones Negative mg/dL (Negative) 01/08/22 Unknown Urine Blood Trace (Negative) 01/08/22 Unknown Urine Nitrite Neg (Negative) 01/08/22 Unknown Ur Reducing Substances Not Reportable 01/08/22 Unknown Urine Bilirubin Negative (Negative) 01/08/22 Unknown Urine Ictotest Not Reportable 01/08/22 Unknown Urine Urobilinogen < 2.0 mg/dL (<2.0) 01/08/22 Unknown Ur Leukocyte Esterase Neg (Negative) 01/08/22 Unknown Urine WBC (Auto) 1.0 /HPF (0.0-6.0) 01/08/22 Unknown Urine RBC (Auto) 8.0 /HPF (0.0-6.0) 01/08/22 Unknown U Epithel Cells (Auto) 2.0 /HPF (0-13.0) 01/08/22 Unknown Urine Mucus Few /HPF 01/08/22 Unknown Collins/IV: Voiding Method Urinal Active Medications - Current Medications Current Medications: Generic Name Dose Route Start Last Admin Trade Name Freq PRN Reason Stop Dose Admin Acetaminophen 650 mg 01/09/22 17:23 01/10/22 20:56 Acetaminophen 325 Mg Tab PO 650 mg Q4H PRN Administration Pain MILD(1-3)/Fever >100.5/PLASENCIA Carvedilol 3.125 mg 01/12/22 22:00 01/14/22 09:22 Carvedilol 3.125 Mg Tab PO 3.125 mg BID SARITA Administration Furosemide 40 mg 01/09/22 18:00 01/14/22 08:46 Furosemide 40 Mg/4 Ml Inj IV 40 mg 0600,1800 SARITA Administration Heparin Sodium (Porcine) 5,000 unit 01/09/22 22:00 01/14/22 09:22 Heparin 5,000 Unit/1 Ml Vial SUB-Q 5,000 unit Q12HR SARITA Administration Hydromorphone HCl 0.5 mg 01/09/22 17:23 01/11/22 20:27 Hydromorphone 1 Mg/1 Ml Inj IV 0.5 mg Q3H PRN Administration Pain , Severe (7-10) Lisinopril 2.5 mg 01/13/22 10:00 01/14/22 09:22 Lisinopril 5 Mg Tab PO 2.5 mg QDAY SARITA Administration Ondansetron HCl 4 mg 01/09/22 17:23 Ondansetron 4 Mg/2 Ml Inj IV Q8H PRN Nausea And Vomiting Oxycodone/Acetaminophen 1 tab 01/09/22 17:23 01/12/22 06:01 Oxycodone /Acetaminophen 5-325mg Tab PO 1 tab Q6H PRN Administration Pain, Moderate (4-6) Sodium Chloride 10 ml 01/09/22 22:00 01/14/22 09:22 Sodium Chloride 0.9% 10 Ml Flush Syringe IV 10 ml BID SARITA Administration Sodium Chloride 10 ml 01/09/22 17:23 Sodium Chloride 0.9% 10 Ml Flush Syringe IV PRN PRN LINE FLUSH Spironolactone 25 mg 01/09/22 22:00 01/14/22 09:22 Spironolactone 25 Mg Tab PO 25 mg BID SARITA Administration
--- NOTE | 2022-01-14 18:11 | Progress Note ---
Assessment and Plan - Patient Problems (1) CHF (congestive heart failure) Current Visit: Yes Status: Acute Qualifiers: Plan to address problem: Patient presents with shortness of breath and radiologic evidence of mild interstitial edema. Previous echocardiogram a year ago reported the presence of severe mitral valve prolapse with severe mitral regurgitation, no apparent subsequent follow-up or management of this lesion. Echocardiogram demonstrated four-chamber cardiomyopathy, left ventricular ejection fraction 30%, moderate to severe mitral regurgitation and mild aortic stenosis. We will optimize heart failure therapy with medications, and as outpatient will be referred to structural heart for assessment of percutaneous options of mitral valvular repair. Subjective Date of service: 01/14/22 Principal diagnosis: Congestive heart failure Interval history: Patient is comfortable, no cardiac complaints, no new cardiac events reported. Objective Vital Signs Temp Pulse Resp BP Pulse Ox 01/14/22 14:12 79 01/14/22 13:00 100 01/14/22 12:02 98.8 F 79 22 102/70 99 01/14/22 07:50 97.5 F L 81 18 123/88 99 01/14/22 03:56 98.6 F 79 18 128/89 97 01/14/22 00:06 100 01/13/22 23:40 98.6 F 75 20 128/83 100 01/13/22 22:07 77 116/78 01/13/22 19:51 99.2 F 77 18 116/78 100 - Physical Examination General: No Apparent Distress HEENT: Positive: PERRL Neck: Positive: neck supple Cardiac: Positive: Reg Rate and Rhythm, Systolic Murmur Lungs: Positive: Decreased Breath Sounds Neuro: Positive: Grossly Intact Abdomen: Positive: Soft Skin: Positive: Clear Extremities: Absent: edema - Imaging and Cardiology EKG: report reviewed (Sinus rhythm no acute ST-T wave changes)
[2022-01-14] MEDS: ACETAMINOPHEN 325 MG TAB PO PRN (21:23)
[2022-01-15] MEDS: FUROSEMIDE 40 MG/4 ML INJ IV SCH (05:33)
[2022-01-15 09:07] VITALS: BP 102/71
[2022-01-15] MEDS: SPIRONOLACTONE 25 MG TAB PO SCH (10:26)
[2022-01-15] MEDS: LISINOPRIL 5 MG TAB PO SCH (10:26)
[2022-01-15] MEDS: carvediloL 3.125 MG TAB PO SCH (10:26)
[2022-01-15] MEDS: HEPARIN 5,000 UNIT/1 ML VIAL SUB-Q SCH (10:26)
--- NOTE | 2022-01-15 13:10 | Progress Note ---
Assessment and Plan - Patient Problems (1) CHF (congestive heart failure) Current Visit: Yes Status: Acute Qualifiers: Plan to address problem: Patient presents with shortness of breath and radiologic evidence of mild interstitial edema. Previous echocardiogram a year ago reported the presence of severe mitral valve prolapse with severe mitral regurgitation, no apparent subsequent follow-up or management of this lesion. Echocardiogram demonstrated four-chamber cardiomyopathy, left ventricular ejection fraction 30%, moderate to severe mitral regurgitation and mild aortic stenosis. We will optimize heart failure therapy with medications, and as outpatient will be referred to structural heart for assessment of percutaneous options of mitral valvular repair. Subjective Date of service: 01/15/22 Principal diagnosis: Congestive heart failure Interval history: Patient is comfortable, no cardiac complaints, no new cardiac events reported. Objective Vital Signs Temp Pulse Pulse Resp BP Pulse Ox 01/15/22 11:00 65 97 01/15/22 08:46 98.5 F 70 20 102/71 96 01/15/22 06:00 78 01/15/22 03:45 98.1 F 64 18 124/83 100 01/15/22 01:00 70 18 98 01/14/22 23:17 98.1 F 70 18 94/64 99 01/14/22 22:00 78 01/14/22 19:12 99.0 F 82 18 127/79 97 01/14/22 16:14 98.3 F 71 22 115/78 94 01/14/22 14:12 79 - Physical Examination General: No Apparent Distress HEENT: Positive: PERRL Neck: Positive: neck supple Cardiac: Positive: Reg Rate and Rhythm, Systolic Murmur Lungs: Positive: Decreased Breath Sounds Neuro: Positive: Grossly Intact Abdomen: Positive: Soft Skin: Positive: Clear Extremities: Absent: edema - Imaging and Cardiology EKG: report reviewed (Sinus rhythm no acute ST-T wave changes)
--- NOTE | 2022-01-15 14:47 | Discharge Summary ---
Providers - Providers Date of Admission: 01/09/22 17:23 Date of discharge: 01/15/22 Attending physician: MARIA T SCHILLING 01/09/22 13:38 Consult to Physician [CONS] Stat Comment: Consulting Provider: SATHISH AMARO Physician Instructions: Reason For Exam: ACS, CHF, CAD 01/15/22 09:11 Physical Therapy Evaluation and Treat [CONS] Routine Comment: Reason For Exam: Debility 01/15/22 12:18 Occupational Therapy Evaluate and Treat [CONS] Routine Comment: Reason For Exam: L side coordination deficits Speech Therapy Evaluation and Treat [CONS] Routine Reason For Exam: Slurred speech Primary care physician: KYLE GEIGER Hospitalization Condition: Stable Pertinent studies: Chest x-ray, abdomen pelvis CT Hospital course: 66-year-old male patient with significant past medical history of hypertension valvular heart disease was admitted through emergency room with worsening shortness of breath and generalized weakness and fatigue. Patient was managed symptomatically with antifailure medications, evaluated by tool repairer bench, patient has severe cardiomyopathy with EF of 25 to 30%. Patient also has severe mitral regurgitation and mitral valve prolapse. Cardiology recommended to optimize heart failure therapy with medications, and as outpatient patient will be plan to refer to structural heart for assessment of percutaneous options of mitral valvular repair. Patient improved clinically and cleared by cardiology for discharge with outpatient follow-up. Discharge planning management was discussed with the patient and he verbalized understanding. Disposition: [address] [place] [address] CARE SERVICE Final Discharge Diagnosis (Prints w/discharge instructions): -- Acute exacerbation of chronic systolic CHF (congestive heart failure). --Dilated cardiomyopathy; EF 25 to 30% [01/11/2022]. -History of severe mitral valve prolapse/Severe mitral regurgitation. --Hypertension. --COPD with exacerbation Time spent for discharge: 34 minutes Core Measure Documentation - Palliative Care Palliative Care/ Comfort Measures: Not Applicable - Core Measures Any of the following diagnoses?: none Exam - Physical Exam Narrative exam: General: No Apparent Distress HEENT: Positive: PERRL Neck: Positive: neck supple Cardiac: Positive: Reg Rate and Rhythm, Systolic Murmur Lungs: Positive: Decreased Breath Sounds Neuro: Positive: Grossly Intact Abdomen: Positive: Soft Skin: Positive: Clear Extremities: Absent: edema - Constitutional Vitals: Temp Pulse Resp BP Pulse Ox 98.5 F 65 20 102/71 97 01/15/22 08:46 01/15/22 11:00 01/15/22 08:46 01/15/22 08:46 01/15/22 11:00 Plan Activity: advance as tolerated Weight Bearing Status: Weight Bear as Tolerated Diet: low fat, low salt Special Instructions: restrict fluid intake to (1.2L per day), record daily weights Follow up with: KYLE GEIGER MD [Primary Care Provider] - 3-5 Days SATHISH AMARO MD [Staff Physician] - 7 Days Prescriptions: Fluticasone/Salmeterol [Advair Diskus 100-50 mcg] 1 puff IH BID #1 disk.[email or web address] Spironolactone [Aldactone] 25 mg PO BID #60 tablet carvediloL [Coreg] 3.125 mg PO BID #60 tablet Aspirin EC [Halfprin EC] 81 mg PO QDAY #30 tablet. Furosemide [Lasix TAB] 40 mg PO QDAY #60 tablet lisinopriL [Zestril TAB] 2.5 mg PO QDAY #60 tablet
== END 2022-01-15 15:37 | disposition home or self-care (01) | DRG 291 ==
LOC: ED 19:23 → 4A 01-09 17:23
PROVIDERS: ADMIT Internal Medicine; ATTEND Internal Medicine
DX: I11.0 Hypertensive heart disease with heart failure (principal); I50.43 Acute on chronic combined systolic (congestive) and diastolic (congestive) heart failure; I24.9 Acute ischemic heart disease, unspecified; I42.0 Dilated cardiomyopathy; J44.9 Chronic obstructive pulmonary disease, unspecified; I10 Essential (primary) hypertension; E78.5 Hyperlipidemia, unspecified; K29.70 Gastritis, unspecified, without bleeding; I34.0 Nonrheumatic mitral (valve) insufficiency; Z83.3 Family history of diabetes mellitus; Z82.49 Family history of ischemic heart disease and other diseases of the circulatory system; Z87.891 Personal history of nicotine dependence
CPT/HCPCS: 36415; 71046; 74177; 80048; 80053; 81001; 82550; 82553; 82962; 83690; 83735; 83880; 84484; 85025; 85610; 93005; 93306; G0378; C8929; J1170; J1644; J1940; Q9967